=== PATIENT | female | born 1945 | race African-American/Black ===

== ENCOUNTER 2018-08-19 12:56 | Inpatient (IN) | payer OTHER ==
[~2018-08-19] VITALS: Ht 167.6 cm; Wt 109.1 kg
[2018-08-19 13:44] LABS: BILIRUBIN,URINE NEGATIVE (NEG); CLARITY,URINE CLEAR; COLOR,URINE YELLOW; NITRITE,URINE NEGATIVE (NEG); PROTEIN,URINE NEGATIVE (NEG-TRACE); UROBILINOGEN,URINE 0.2 mg/dL (0.2 mg/dL)
[2018-08-19 13:46] LABS: BASO % 1 % (0-3); EOS % 0 % (0-3); HEMATOCRIT 48.9 % (36.0-47.0); HEMOGLOBIN 15.9 g/dL (12.0-15.5); LYMPH # 0.6 x10^3/uL (1.0-4.8); LYMPH % 20 % (24-48); MEAN CORPUSCULAR HEMOGLOBIN 29 pg (25-35); MEAN CORPUSCULAR HGB CONC 33 g/dL (31-37); MEAN CORPUSCULAR VOLUME 89 fL (79-100); MONO # 0.1 x10^3/uL (0.0-1.1); MONO % 5 % (0-9); NEUT # 2.1 x10^3uL (1.8-7.7); NEUT % 74 % (31-73); PLATELET COUNT 156 x10^3/uL (140-400); RED BLOOD COUNT 5.52 x10^6/uL (3.50-5.40); RED CELL DISTRIBUTION WIDTH 13.8 % (11.5-14.5); WHITE BLOOD COUNT 2.9 x10^3/uL (4.0-11.0)
--- NOTE | 2018-08-19 13:48 | PHYS DOC ---
Past Medical History Past Medical History: Asthma, CVA, Diabetes-Type II, High Cholesterol, Hypertension Past Surgical History: Cholecystectomy, Hysterectomy, Knee Replacement, Other Additional Past Surgical Histo: Bilateral knee replacement,R)hip Alcohol Use: None Drug Use: None Adult General Chief Complaint Chief Complaint: NAUSEA/VOMITING/DIARRHA HPI HPI Patient is a 73 year old who presents with vomiting and diarrhea. She has been sick for 3 days. She also has pain all over her abd. She denies cp, sob, fevers. She has vomited 3x today. She denies blood in vomit or stool. She denies fevers. Review of Systems Review of Systems Constitutional: Denies fever or chills Eyes: Denies change in visual acuity, redness, or eye pain HENT: Denies nasal congestion or sore throat Respiratory: Denies cough or shortness of breath Cardiovascular: No additional information not addressed in HPI GI: Endorses abd pain, vom, diarrh : Denies dysuria or hematuria Musculoskeletal: Denies back pain or joint pain Integument: Denies rash or skin lesions Neurologic: Denies headache, focal weakness or sensory changes Endocrine: Denies polyuria or polydipsia All other systems were reviewed and found to be within normal limits, except as documented in this note. Current Medications Current Medications Current Medications Medications (Trade) Dose Ordered Sig/Maximiliano Start Time Stop Time Status Last Admin Dose Admin Ondansetron HCl (Zofran) 4 mg 1X ONCE 08/19/18 14:00 08/19/18 14:01 DC 08/19/18 13:58 4 MG Sodium Chloride 1,000 ml @ 1,000 mls/hr 1X ONCE 08/19/18 14:30 08/19/18 15:29 DC 08/19/18 14:42 1,000 MLS/HR Allergies Allergies Allergies Coded Allergies Type Severity Reaction Last Updated Verified Penicillins Allergy Intermediate 09/20/15 Yes iodine Allergy Intermediate 09/20/15 Yes Physical Exam Physical Exam Constitutional: Well developed, well nourished, no acute distress, non-toxic appearance. HENT: Normocephalic, atraumatic, bilateral external ears normal, oropharynx moist, no oral exudates, nose normal. Dry MM. Eyes: PERRLA, EOMI, conjunctiva normal, no discharge. Neck: Normal range of motion, no tenderness, supple, no stridor. Cardiovascular:Heart rate regular rhythm, no murmur Lungs & Thorax: Bilateral breath sounds clear to auscultation Abdomen: Bowel sounds normal, soft, no masses, no pulsatile masses. Diffuse abd TTP, no rebound, no guarding Skin: Warm, dry, no erythema, no rash. Back: No tenderness, no CVA tenderness. Extremities: No tenderness, no cyanosis, no clubbing, ROM intact, no edema. Neurologic: Alert and oriented X 3, normal motor function, normal sensory function, no focal deficits noted. Psychologic: Affect normal, judgement normal, mood normal. Current Patient Data Vital Signs Vital Signs Date Time Temp Pulse Resp B/P (MAP) Pulse Ox O2 Delivery O2 Flow Rate FiO2 08/19/18 14:30 67 19 189/91 (123) 96 Room Air 08/19/18 13:00 98.0 98.0 Lab Values Laboratory Tests Test 08/19/18 13:15 08/19/18 13:33 Urine Collection Type Unknown Urine Color Yellow Urine Clarity Clear Urine pH 7.0 Urine Specific [place] 1.015 Urine Protein Negative mg/dL (NEG-TRACE) Urine Glucose (UA) Negative mg/dL (NEG) Urine Ketones (Stick) Negative mg/dL (NEG) Urine Blood Negative (NEG) Urine Nitrite Negative (NEG) Urine Bilirubin Negative (NEG) Urine Urobilinogen Dipstick 0.2 mg/dL (0.2 mg/dL) Urine Leukocyte Esterase Negative (NEG) Urine RBC Rare /HPF (0-2) Urine WBC Rare /HPF (0-4) Urine Squamous Epithelial Cells Occ /LPF Urine Bacteria 0 /HPF (0-FEW) White Blood Count 2.9 x10^3/uL (4.0-11.0) L Red Blood Count 5.52 x10^6/uL (3.50-5.40) H Hemoglobin 15.9 g/dL (12.0-15.5) H Hematocrit 48.9 % (36.0-47.0) H Mean Corpuscular Volume 89 fL (79-100) Mean Corpuscular Hemoglobin 29 pg (25-35) Mean Corpuscular Hemoglobin Concent 33 g/dL (31-37) Red Cell Distribution Width 13.8 % (11.5-14.5) Platelet Count 156 x10^3/uL (140-400) Neutrophils (%) (Auto) 74 % (31-73) H Lymphocytes (%) (Auto) 20 % (24-48) L Monocytes (%) (Auto) 5 % (0-9) Eosinophils (%) (Auto) 0 % (0-3) Basophils (%) (Auto) 1 % (0-3) Neutrophils # (Auto) 2.1 x10^3uL (1.8-7.7) Lymphocytes # (Auto) 0.6 x10^3/uL (1.0-4.8) L Monocytes # (Auto) 0.1 x10^3/uL (0.0-1.1) Eosinophils # (Auto) 0.0 x10^3/uL (0.0-0.7) Basophils # (Auto) 0.0 x10^3/uL (0.0-0.2) Sodium Level 139 mmol/L (136-145) Potassium Level 4.0 mmol/L (3.5-5.1) Chloride Level 102 mmol/L (98-107) Carbon Dioxide Level 29 mmol/L (21-32) Anion Gap 8 (6-14) Blood Urea Nitrogen 12 mg/dL (7-20) Creatinine 1.2 mg/dL (0.6-1.0) H Estimated GFR (Cockcroft-Gault) 53.4 BUN/Creatinine Ratio 10 (6-20) Glucose Level 135 mg/dL (70-99) H Calcium Level 10.3 mg/dL (8.5-10.1) H Magnesium Level 1.9 mg/dL (1.8-2.4) Total Bilirubin 0.5 mg/dL (0.2-1.0) Aspartate Amino Transferase (AST) 21 U/L (15-37) Alanine Aminotransferase (ALT) 24 U/L (14-59) Alkaline Phosphatase 80 U/L (46-116) Total Protein 8.2 g/dL (6.4-8.2) Albumin 4.1 g/dL (3.4-5.0) Albumin/Globulin Ratio 1.0 (1.0-1.7) Lipase 62 U/L (73-393) L Laboratory Tests 08/19/18 13:33 Laboratory Tests 08/19/18 13:33 EKG EKG [] Radiology/Procedures Radiology/Procedures [] Course & Med Decision Making Course & Med Decision Making Pertinent Labs and Imaging studies reviewed. (See chart for details) 73 y/o F presents for vomiting and diarrhea, diffuse abd pain. CT neg for acute. Labs show elevated Cr. Admit for dehydration and HTN to Dr. Merritt. Richard Disclaimer Richard Disclaimer This electronic medical record was generated, in whole or in part, using a voice recognition dictation system. Departure Departure Impression: Primary Impression: Vomiting Additional Impressions: Diarrhea Elevated serum creatinine Hypertension Disposition: 09 ADMITTED INPATIENT Admitting Physician: Bell Merritt Condition: STABLE Referrals: KAYLA SNOWDEN (PCP) Problem Qualifiers SUSANNAH JEFF MD Aug 19, 2018 13:48
[2018-08-19 13:53] LABS: CALCIUM 10.3 mg/dL (8.5-10.1); CREATININE 1.2 mg/dL (0.6-1.0); GFR 53.4
[2018-08-19 13:55] LABS: BACTERIA,URINE 0 /HPF (0-FEW); RBC,URINE RARE /HPF (0-2); SQUAMOUS EPITHELIAL CELL,UR OCC /LPF; WBC,URINE RARE /HPF (0-4)
[2018-08-19 13:59] LABS: ALBUMIN 4.1 g/dL (3.4-5.0); MAGNESIUM 1.9 mg/dL (1.8-2.4); TOTAL BILIRUBIN 0.5 mg/dL (0.2-1.0); TOTAL PROTEIN 8.2 g/dL (6.4-8.2)
[2018-08-19] MEDS ORDERED: ONDANSETRON PF 4 MG/2 ML VIAL. IM ONE (14:00)
[2018-08-19] MEDS ORDERED: IV NORMAL SALINE 1000ML BAG 1,000 ML IV ONE (14:30)
--- NOTE | 2018-08-19 14:44 | RAD ---
CT study of the abdomen and pelvis without contrast Clinical indications: Diffuse abdominal pain. Iodine allergy. TECHNIQUE: Noncontrast helical CT scanning of the abdomen and pelvis was performed. Without contrast, the sensitivity to detect organ pathology and GI tract pathology is decreased. PQRS compliance Statement One or more of the following individualized dose reduction techniques were utilized for this study: 1. Automated exposure control 2. Adjustment of the mA and/or kV according to patient size 3. Use of iterative reconstruction technique COMPARISON: August 20, 2009. FINDINGS: The liver and spleen and pancreas are homogeneous in appearance on this noncontrast study. The gallbladder is surgically absent. No extra hepatic biliary ductal dilatation is seen. No hydronephrosis or hydroureter or urinary tract stone is evident. The urinary bladder is not distended. The uterus is surgically absent. No focal aneurysmal dilatation of the abdominal aorta is seen. No enlarged abdominal or pelvic lymphadenopathy is evident. The appendix is normal. No obstructive bowel pattern is evident. Small hiatal hernia is seen. No free intraperitoneal air or free fluid or mesenteric edema is seen. No lytic process is evident. There is a lipomatous mass of the right lateral flank measuring 11.3 cm transversely and 10.7 cm vertically and 6.5 cm in AP thickness. This has internal septations and nodularity and calcifications. This could represent a lipoma but given the heterogeneous appearance and septations and calcifications, a liposarcoma may be included in the differential diagnosis but this has not changed in size since 2009 i.e 9 years. Therefore, the other consideration is fat necrosis. No lung base consolidation is seen. IMPRESSION: No acute abnormality of the abdomen or pelvis. Small hiatal hernia. Large lipomatous mass of the right lateral flank which hasn't changed significantly since since April 2009. See discussion above. Electronically signed by: Eduardo Magana MD (08/19/2018 2:41 PM) [place] [id number]
[2018-08-19] MEDS ORDERED: MORPHINE SULFATE 2 MG/ML VIAL. IV PRN (15:45)
[2018-08-19] MEDS ORDERED: hydrALAZINE 20 MG/ML VIAL. IVP ONE (17:15)
[2018-08-19] MEDS: ONDANSETRON PF 4 MG/2 ML VIAL. IV PRN (17:25)
[2018-08-19] MEDS ORDERED: METOCLOPRAMIDE HCL 10 MG/2 ML VIAL. IV ONE (18:15)
[2018-08-19 18:47] VITALS: BP 196/103
[2018-08-19] MEDS ORDERED: LISINOPRIL 10 MG TABLET PO ONE (19:30)
[2018-08-19] MEDS ORDERED: amLODIPine BESYLATE 5 MG TABLET PO ONE (19:30)
--- NOTE | 2018-08-19 20:13 | PDOC1 ---
History and Physical Date of Admission Date of Admission DATE: 08/19/18 TIME: 20:08 Identification/Chief Complaint Chief Complaint n/v/d abdpain Source Source: Chart review, Patient History of Present Illness History of Present Illness Ms. Chaney is a 73 year old who presents with vomiting and diarrhea. 24 hours of loose stool, She complains of nausea and abdominal pain, worse over three days, she is unsure of what day it is, her son is here and helps with history, but he is unsure of her hoem meds, but did communicate things that her primary care had said about possible dementia . She also has pain all over her abd. She denies cp, sob, fevers. She has vomited 3x today. She denies blood in vomit or stool. She denies fevers. Past Medical History Cardiovascular: No pertinent hx Pulmonary: No pertinent hx GI: No pertinent hx Heme/Onc: No pertinent hx Psych: No pertinent hx Musculoskeletal: low back pain Social History Smoke: No ALCOHOL: none Drugs: None Current Problem List Problem List Problems Medical Problems: (1) Diarrhea Status: Acute (2) Elevated serum creatinine Status: Acute (3) Hypertension Status: Acute (4) Vomiting Status: Acute Current Medications Current Medications Current Medications Ondansetron HCl (Zofran) 4 mg 1X ONCE IM Last administered on 08/19/18at 13:58; Start 08/19/18 at 14:00; Stop 08/19/18 at 14:01; Status DC Sodium Chloride 1,000 ml @ 1,000 mls/hr 1X ONCE IV Last administered on 08/19/18at 14:42; Start 08/19/18 at 14:30; Stop 08/19/18 at 15:29; Status DC Ondansetron HCl (Zofran) 4 mg PRN Q8HRS PRN IV NAUSEA/VOMITING Last administered on 08/19/18at 17:25; Start 08/19/18 at 15:45; Stop 08/20/18 at 15:44 Morphine Sulfate (Morphine Sulfate) 2 mg PRN Q2HR PRN IV PAIN; Start 08/19/18 at 15:45; Stop 08/20/18 at 15:44 Hydralazine HCl (Apresoline Inj) 10 mg 1X ONCE IVP Last administered on 08/19/18at 17:25; Start 08/19/18 at 17:15; Stop 08/19/18 at 17:17; Status DC Metoclopramide HCl (Reglan Vial) 10 mg 1X ONCE IV Last administered on 08/19/18at 18:32; Start 08/19/18 at 18:15; Stop 08/19/18 at 18:16; Status DC Amlodipine Besylate (Norvasc) 5 mg 1X ONCE PO ; Start 08/19/18 at 19:30; Stop 08/19/18 at 19:31; Status DC Amlodipine Besylate (Norvasc) 5 mg DAILY PO ; Start 08/20/18 at 09:00 Lisinopril (Prinivil) 20 mg DAILY PO ; Start 08/20/18 at 09:00 Lisinopril (Prinivil) 20 mg 1X ONCE PO ; Start 08/19/18 at 19:30; Stop 08/19/18 at 19:31; Status DC Allergies Allergies: Coded Allergies: Penicillins (Verified Allergy, Intermediate, 09/20/15) iodine (Verified Allergy, Intermediate, 09/20/15) ROS Review of System unable due to dementia, her son reports abd pain and and nausea worse over three days, otherwise she has looked fine Physical Exam General: Cooperative, mild distress (abd pain), moderate distress, Other (not oriented) Lungs: Clear to auscultation Heart: S1S2 Abdomen: Soft (obese and tender, diffuse, no guarding, no rebound) Rectal Exam: not examined Extremities: No clubbing, No edema Skin: No rashes, No breakdown, No significant lesion Neuro: Normal speech, Normal tone, Cranial nerves 3-12 NL Psych/Mental Status: Mood NL Vitals Vitals Vital Signs Date Time Temp Pulse Resp B/P (MAP) Pulse Ox O2 Delivery O2 Flow Rate FiO2 08/19/18 18:47 97.8 72 16 196/103 (134) 100 Room Air 97.8 Labs Labs Laboratory Tests Test 08/19/18 13:15 08/19/18 13:33 Urine Collection Type Unknown Urine Color Yellow Urine Clarity Clear Urine pH 7.0 Urine Specific [place] 1.015 Urine Protein Negative mg/dL (NEG-TRACE) Urine Glucose (UA) Negative mg/dL (NEG) Urine Ketones (Stick) Negative mg/dL (NEG) Urine Blood Negative (NEG) Urine Nitrite Negative (NEG) Urine Bilirubin Negative (NEG) Urine Urobilinogen Dipstick 0.2 mg/dL (0.2 mg/dL) Urine Leukocyte Esterase Negative (NEG) Urine RBC Rare /HPF (0-2) Urine WBC Rare /HPF (0-4) Urine Squamous Epithelial Cells Occ /LPF Urine Bacteria 0 /HPF (0-FEW) White Blood Count 2.9 x10^3/uL (4.0-11.0) Red Blood Count 5.52 x10^6/uL (3.50-5.40) Hemoglobin 15.9 g/dL (12.0-15.5) Hematocrit 48.9 % (36.0-47.0) Mean Corpuscular Volume 89 fL (79-100) Mean Corpuscular Hemoglobin 29 pg (25-35) Mean Corpuscular Hemoglobin Concent 33 g/dL (31-37) Red Cell Distribution Width 13.8 % (11.5-14.5) Platelet Count 156 x10^3/uL (140-400) Neutrophils (%) (Auto) 74 % (31-73) Lymphocytes (%) (Auto) 20 % (24-48) Monocytes (%) (Auto) 5 % (0-9) Eosinophils (%) (Auto) 0 % (0-3) Basophils (%) (Auto) 1 % (0-3) Neutrophils # (Auto) 2.1 x10^3uL (1.8-7.7) Lymphocytes # (Auto) 0.6 x10^3/uL (1.0-4.8) Monocytes # (Auto) 0.1 x10^3/uL (0.0-1.1) Eosinophils # (Auto) 0.0 x10^3/uL (0.0-0.7) Basophils # (Auto) 0.0 x10^3/uL (0.0-0.2) Sodium Level 139 mmol/L (136-145) Potassium Level 4.0 mmol/L (3.5-5.1) Chloride Level 102 mmol/L (98-107) Carbon Dioxide Level 29 mmol/L (21-32) Anion Gap 8 (6-14) Blood Urea Nitrogen 12 mg/dL (7-20) Creatinine 1.2 mg/dL (0.6-1.0) Estimated GFR (Cockcroft-Gault) 53.4 BUN/Creatinine Ratio 10 (6-20) Glucose Level 135 mg/dL (70-99) Calcium Level 10.3 mg/dL (8.5-10.1) Magnesium Level 1.9 mg/dL (1.8-2.4) Total Bilirubin 0.5 mg/dL (0.2-1.0) Aspartate Amino Transf (AST/SGOT) 21 U/L (15-37) Alanine Aminotransferase (ALT/SGPT) 24 U/L (14-59) Alkaline Phosphatase 80 U/L (46-116) Total Protein 8.2 g/dL (6.4-8.2) Albumin 4.1 g/dL (3.4-5.0) Albumin/Globulin Ratio 1.0 (1.0-1.7) Lipase 62 U/L (73-393) Laboratory Tests Test 08/19/18 13:15 08/19/18 13:33 Urine Collection Type Unknown Urine Color Yellow Urine Clarity Clear Urine pH 7.0 Urine Specific [place] 1.015 Urine Protein Negative mg/dL (NEG-TRACE) Urine Glucose (UA) Negative mg/dL (NEG) Urine Ketones (Stick) Negative mg/dL (NEG) Urine Blood Negative (NEG) Urine Nitrite Negative (NEG) Urine Bilirubin Negative (NEG) Urine Urobilinogen Dipstick 0.2 mg/dL (0.2 mg/dL) Urine Leukocyte Esterase Negative (NEG) Urine RBC Rare /HPF (0-2) Urine WBC Rare /HPF (0-4) Urine Squamous Epithelial Cells Occ /LPF Urine Bacteria 0 /HPF (0-FEW) White Blood Count 2.9 x10^3/uL (4.0-11.0) Red Blood Count 5.52 x10^6/uL (3.50-5.40) Hemoglobin 15.9 g/dL (12.0-15.5) Hematocrit 48.9 % (36.0-47.0) Mean Corpuscular Volume 89 fL (79-100) Mean Corpuscular Hemoglobin 29 pg (25-35) Mean Corpuscular Hemoglobin Concent 33 g/dL (31-37) Red Cell Distribution Width 13.8 % (11.5-14.5) Platelet Count 156 x10^3/uL (140-400) Neutrophils (%) (Auto) 74 % (31-73) Lymphocytes (%) (Auto) 20 % (24-48) Monocytes (%) (Auto) 5 % (0-9) Eosinophils (%) (Auto) 0 % (0-3) Basophils (%) (Auto) 1 % (0-3) Neutrophils # (Auto) 2.1 x10^3uL (1.8-7.7) Lymphocytes # (Auto) 0.6 x10^3/uL (1.0-4.8) Monocytes # (Auto) 0.1 x10^3/uL (0.0-1.1) Eosinophils # (Auto) 0.0 x10^3/uL (0.0-0.7) Basophils # (Auto) 0.0 x10^3/uL (0.0-0.2) Sodium Level 139 mmol/L (136-145) Potassium Level 4.0 mmol/L (3.5-5.1) Chloride Level 102 mmol/L (98-107) Carbon Dioxide Level 29 mmol/L (21-32) Anion Gap 8 (6-14) Blood Urea Nitrogen 12 mg/dL (7-20) Creatinine 1.2 mg/dL (0.6-1.0) Estimated GFR (Cockcroft-Gault) 53.4 BUN/Creatinine Ratio 10 (6-20) Glucose Level 135 mg/dL (70-99) Calcium Level 10.3 mg/dL (8.5-10.1) Magnesium Level 1.9 mg/dL (1.8-2.4) Total Bilirubin 0.5 mg/dL (0.2-1.0) Aspartate Amino Transf (AST/SGOT) 21 U/L (15-37) Alanine Aminotransferase (ALT/SGPT) 24 U/L (14-59) Alkaline Phosphatase 80 U/L (46-116) Total Protein 8.2 g/dL (6.4-8.2) Albumin 4.1 g/dL (3.4-5.0) Albumin/Globulin Ratio 1.0 (1.0-1.7) Lipase 62 U/L (73-393) VTE Prophylaxis Ordered VTE Prophylaxis Devices: No VTE Pharmacological Prophylaxi: Yes Assessment/Plan Assessment/Plan nausea and vomiting and diarrhea, acute viral enteritis accelerated htn, will start mult, agents - check echo, renal noted cognitive decline or early dementia by pt primary care per her son obesity, BMI 42 VELEZ,SHAQUILLE W MD Aug 19, 2018 20:13
--- NOTE | 2018-08-19 20:30 | NUR ---
Patient unable to give history or medication list, sons Kev and Hugo in room, did speak with Kev's , Landy Chaney, and she had said her or someone would go to patient's home and call back with her medications. Awaiting.
[2018-08-19] MEDS ORDERED: cloNIDine TTS-1 1 PATCH PATCH.TDWK TD SCH (21:00)
[2018-08-19] MEDS: ENOXAPARIN 40 MG/0.4 ML SYRINGE. SQ SCH (21:31)
[2018-08-19 23:00] VITALS: BP 199/98
[2018-08-20] VITALS (9 sets, daily range): BP systolic 148–201; BP diastolic 73–104
--- NOTE | 2018-08-20 02:00 | NUR ---
Patient seems a bit more awake than beginning of shift, did squeeze this story writer's hands equally, flexed feet equally. nauseated. monitoring.
[2018-08-20] MEDS ORDERED: METF500T16 PO (06:57)
[2018-08-20] MEDS ORDERED: ASPI81TA50 PO (06:57)
[2018-08-20] MEDS ORDERED: LISI-334 PO (06:57)
[2018-08-20] MEDS ORDERED: HYDR12.58 PO (06:57)
[2018-08-20] MEDS ORDERED: POLY17PO29 PO (06:57)
[2018-08-20] MEDS ORDERED: DOCU100C28 PO (06:57)
[2018-08-20] MEDS ORDERED: BUPR150T8 PO (06:57)
[2018-08-20] MEDS ORDERED: METO50TA6 PO (06:57)
[2018-08-20] MEDS ORDERED: calcium (06:57)
[2018-08-20] MEDS ORDERED: OXYC1TAB22 PO (06:57)
[2018-08-20] MEDS ORDERED: ATOR40TA59 PO (06:57)
[2018-08-20] MEDS ORDERED: SPIR25TA5 PO (06:57)
[2018-08-20] MEDS ORDERED: CHOL10003 PO (06:57)
[2018-08-20] MEDS ORDERED: WARF-31 PO (06:57)
[2018-08-20] MEDS ORDERED: CLON0.3T PO (06:57)
[2018-08-20] MEDS ORDERED: ALBU2.5V8 IH (06:57)
[2018-08-20 08:25] LABS: BASO % 0 % (0-3); EOS % 0 % (0-3); HEMATOCRIT 46.6 % (36.0-47.0); HEMOGLOBIN 15.6 g/dL (12.0-15.5); LYMPH # 0.5 x10^3/uL (1.0-4.8); LYMPH % 10 % (24-48); MEAN CORPUSCULAR HEMOGLOBIN 30 pg (25-35); MEAN CORPUSCULAR HGB CONC 33 g/dL (31-37); MEAN CORPUSCULAR VOLUME 88 fL (79-100); MONO # 0.2 x10^3/uL (0.0-1.1); MONO % 4 % (0-9); NEUT # 4.3 x10^3uL (1.8-7.7); NEUT % 86 % (31-73); PLATELET COUNT 157 x10^3/uL (140-400); RED BLOOD COUNT 5.28 x10^6/uL (3.50-5.40); RED CELL DISTRIBUTION WIDTH 13.6 % (11.5-14.5)
--- NOTE | 2018-08-20 08:42 | PDOC2 ---
GI CONSULT Reason For Consult: Enteritis HPI: HPI: 73 y/o female - most of history from chart. When I saw her, she was sitting on the edge of her bed w/ gown covered in bilious emesis. She answered all my questions with "for awhile." Chart indicates ill w/ vomiting and diarrhea x 3 days w/ possible h/o dementia. PMH: PMH: from chart - dementia, DM, asthma, PE, HTN, HLD, CVA, pneumonia, colon polyps cataract removal, cholecystectomy, bilateral knee surgeries FH: Family History: Other (unable to obtain) ROS: Please see HPI. Vitals: Vitals: Vital Signs Date Time Temp Pulse Resp B/P (MAP) Pulse Ox O2 Delivery O2 Flow Rate FiO2 08/20/18 07:00 98.5 92 22 200/104 (136) 94 Room Air 98.5 Labs: Labs: Laboratory Tests Test 08/19/18 13:15 08/19/18 13:33 08/20/18 07:42 Urine Collection Type Unknown Urine Color Yellow Urine Clarity Clear Urine pH 7.0 Urine Specific [place] 1.015 Urine Protein Negative mg/dL (NEG-TRACE) Urine Glucose (UA) Negative mg/dL (NEG) Urine Ketones (Stick) Negative mg/dL (NEG) Urine Blood Negative (NEG) Urine Nitrite Negative (NEG) Urine Bilirubin Negative (NEG) Urine Urobilinogen Dipstick 0.2 mg/dL (0.2 mg/dL) Urine Leukocyte Esterase Negative (NEG) Urine RBC Rare /HPF (0-2) Urine WBC Rare /HPF (0-4) Urine Squamous Epithelial Cells Occ /LPF Urine Bacteria 0 /HPF (0-FEW) White Blood Count 2.9 x10^3/uL (4.0-11.0) 5.0 x10^3/uL (4.0-11.0) Red Blood Count 5.52 x10^6/uL (3.50-5.40) 5.28 x10^6/uL (3.50-5.40) Hemoglobin 15.9 g/dL (12.0-15.5) 15.6 g/dL (12.0-15.5) Hematocrit 48.9 % (36.0-47.0) 46.6 % (36.0-47.0) Mean Corpuscular Volume 89 fL (79-100) 88 fL (79-100) Mean Corpuscular Hemoglobin 29 pg (25-35) 30 pg (25-35) Mean Corpuscular Hemoglobin Concent 33 g/dL (31-37) 33 g/dL (31-37) Red Cell Distribution Width 13.8 % (11.5-14.5) 13.6 % (11.5-14.5) Platelet Count 156 x10^3/uL (140-400) 157 x10^3/uL (140-400) Neutrophils (%) (Auto) 74 % (31-73) 86 % (31-73) Lymphocytes (%) (Auto) 20 % (24-48) 10 % (24-48) Monocytes (%) (Auto) 5 % (0-9) 4 % (0-9) Eosinophils (%) (Auto) 0 % (0-3) 0 % (0-3) Basophils (%) (Auto) 1 % (0-3) 0 % (0-3) Neutrophils # (Auto) 2.1 x10^3uL (1.8-7.7) 4.3 x10^3uL (1.8-7.7) Lymphocytes # (Auto) 0.6 x10^3/uL (1.0-4.8) 0.5 x10^3/uL (1.0-4.8) Monocytes # (Auto) 0.1 x10^3/uL (0.0-1.1) 0.2 x10^3/uL (0.0-1.1) Eosinophils # (Auto) 0.0 x10^3/uL (0.0-0.7) 0.0 x10^3/uL (0.0-0.7) Basophils # (Auto) 0.0 x10^3/uL (0.0-0.2) 0.0 x10^3/uL (0.0-0.2) Sodium Level 139 mmol/L (136-145) Potassium Level 4.0 mmol/L (3.5-5.1) Chloride Level 102 mmol/L (98-107) Carbon Dioxide Level 29 mmol/L (21-32) Anion Gap 8 (6-14) Blood Urea Nitrogen 12 mg/dL (7-20) Creatinine 1.2 mg/dL (0.6-1.0) Estimated GFR (Cockcroft-Gault) 53.4 BUN/Creatinine Ratio 10 (6-20) Glucose Level 135 mg/dL (70-99) Calcium Level 10.3 mg/dL (8.5-10.1) Magnesium Level 1.9 mg/dL (1.8-2.4) Total Bilirubin 0.5 mg/dL (0.2-1.0) Aspartate Amino Transf (AST/SGOT) 21 U/L (15-37) Alanine Aminotransferase (ALT/SGPT) 24 U/L (14-59) Alkaline Phosphatase 80 U/L (46-116) Total Protein 8.2 g/dL (6.4-8.2) Albumin 4.1 g/dL (3.4-5.0) Albumin/Globulin Ratio 1.0 (1.0-1.7) Lipase 62 U/L (73-393) Ionized Calcium 1.29 mmol/L (1.13-1.32) Allergies: Coded Allergies: Penicillins (Verified Allergy, Intermediate, 09/20/15) iodine (Verified Allergy, Intermediate, 09/20/15) Medications: Current Medications Medications (Trade) Dose Ordered Sig/Maximiliano Route PRN Reason Start Time Stop Time Status Last Admin Dose Admin Ondansetron HCl (Zofran) 4 mg 1X ONCE IM 08/19/18 14:00 08/19/18 14:01 DC 08/19/18 13:58 Sodium Chloride 1,000 ml @ 1,000 mls/hr 1X ONCE IV 08/19/18 14:30 08/19/18 15:29 DC 08/19/18 14:42 Ondansetron HCl (Zofran) 4 mg PRN Q8HRS PRN IV NAUSEA/VOMITING 08/19/18 15:45 08/20/18 15:44 08/19/18 17:25 Hydralazine HCl (Apresoline Inj) 10 mg 1X ONCE IVP 08/19/18 17:15 08/19/18 17:17 DC 08/19/18 17:25 Metoclopramide HCl (Reglan Vial) 10 mg 1X ONCE IV 08/19/18 18:15 08/19/18 18:16 DC 08/19/18 18:32 Enoxaparin Sodium (Lovenox 40mg Syringe) 40 mg Q12H SQ 08/19/18 21:00 08/19/18 21:31 Clonidine HCl (Catapres Tts-1) 1 patch WEEKLY TD 08/19/18 21:00 08/19/18 21:30 Imaging: Imaging: CT A/P w/o contrast FINDINGS: The liver and spleen and pancreas are homogeneous in appearance on this noncontrast study. The gallbladder is surgically absent. No extra hepatic biliary ductal dilatation is seen. No hydronephrosis or hydroureter or urinary tract stone is evident. The urinary bladder is not distended. The uterus is surgically absent. No focal aneurysmal dilatation of the abdominal aorta is seen. No enlarged abdominal or pelvic lymphadenopathy is evident. The appendix is normal. No obstructive bowel pattern is evident. Small hiatal hernia is seen. No free intraperitoneal air or free fluid or mesenteric edema is seen. No lytic process is evident. There is a lipomatous mass of the right lateral flank measuring 11.3 cm transversely and 10.7 cm vertically and 6.5 cm in AP thickness. This has internal septations and nodularity and calcifications. This could represent a lipoma but given the heterogeneous appearance and septations and calcifications, a liposarcoma may be included in the differential diagnosis but this has not changed in size since 2009 i.e 9 years. Therefore, the other consideration is fat necrosis. No lung base consolidation is seen. IMPRESSION: No acute abnormality of the abdomen or pelvis. Small hiatal hernia. Large lipomatous mass of the right lateral flank which hasn't changed significantly since since April 2009. See discussion above. Renal US Impression: No hydronephrosis. Unremarkable exam. PE: Exam not ideal - she did not want to change positions. GEN: ill - softly moaning, sitting on edge of bed, gown w/ emesis, holding emesis basin HEENT: Atraumatic LUNGS: CTAB - poor effort HEART: borderline tachycardic ABD: BS quiet, no obvious tenderness on limited exam EXTREMITY: No edema SKIN: No rashes, no jaundice NEURO/PSYCH: confused A/P: A/P: Vomiting, ?diarrhea, ?abd pain HTN, hypercalcemia, large lipomatous mass of right lateral flank - per primary ?h/o colon polyps S/p cholecystectomy -- No meaningful information from pt this morning, though obviously ill w/ emesis on her gown, exam not ideal (pt not wanting to move from seated/hunched over pos ition) - d/w staff. Supportive care, NPO, will add IV PPI. CT w/o contrast unrevealing. Will review w/ Dr. Yeung. PEDRO JONES Aug 20, 2018 08:42
[2018-08-20 08:53] LABS: ALBUMIN 3.7 g/dL (3.4-5.0); ALBUMIN/GLOBULIN RATIO 0.9 (1.0-1.7); CALCIUM 10.4 mg/dL (8.5-10.1); CREATININE 1.1 mg/dL (0.6-1.0); GFR 59.1; POTASSIUM 3.9 mmol/L (3.5-5.1); TOTAL BILIRUBIN 0.5 mg/dL (0.2-1.0); TOTAL PROTEIN 7.6 g/dL (6.4-8.2)
[2018-08-20] MEDS: ENOXAPARIN 40 MG/0.4 ML SYRINGE. SQ SCH (09:00)
[2018-08-20] MEDS ORDERED: LISINOPRIL 20 MG TABLET PO SCH (09:00)
--- NOTE | 2018-08-20 09:06 | RAD ---
Examination: RENAL COMPLETE BILATERAL History: MARKED HTN, NAUSEA VOMITING,
I LOOKED AT DR NOTES HE ASKED FOR RENAL, Comparison/Correlation: 08/19/2018 CT of the abdomen and pelvis without contrast Findings: Right kidney measures 10.3 cm x 5 cm x 4.67. Left kidney measures 9.8 cm x 4.5 cm x 2.5 cm. No hydronephrosis or nephrolithiasis. Renal contours and echotexture are unremarkable. Urinary bladder is completely decompressed. Impression: No hydronephrosis. Unremarkable exam. Electronically signed by: Kishan Ramon MD (08/20/2018 9:04 AM) [facility]
[2018-08-20] MEDS: amLODIPine BESYLATE 5 MG TABLET PO SCH (09:09)
[2018-08-20 09:24] LABS: % LYMPHS 10 % (24-48); % MONOS 5 % (0-10); % SEGS 85 % (35-66)
[2018-08-20 09:25] LABS: PLT ESTIMATE ADEQUATE (ADEQUATE)
[2018-08-20] MEDS: PANTOPRAZOLE IV PUSH 40 MG VIAL. IVP SCH ×2 (09:40→18:50)
--- NOTE | 2018-08-20 10:00 | NUR ---
Patient drowsy, but does respond to verbal commands, spoke on phone x2 when phone handed to her. Patient admitted to having stroke in past, and indicate did have some weakness from that, but doesn't remember where, and doesn't remember how long ago she had a stroke. Bilateral hand blender / cook mod strength, answered "right handed" Patient had c/o head discomfort when slid down in bed, with some immediate relief when pulled up in bed. Pupils difficult to check at this time for size, as very dark (right pupil does appear very small, but unable to assess size prior to exposure to light.
[2018-08-20] MEDS ORDERED: LABETALOL 20 MG/4 ML DISP.SYRIN. IVP PRN (10:15)
[2018-08-20] MEDS ORDERED: oxyCODONE/APAP 10/325 1 TAB TABLET PO PRN (10:45)
[2018-08-20] MEDS ORDERED: hydroCHLOROthiazide 25 MG TABLET PO SCH (11:00)
[2018-08-20] MEDS: POLYETHYLENE GLYCOL 3350 17 GM PACKET. PO SCH (11:00)
[2018-08-20] MEDS ORDERED: CHOLECALCIFEROL (VITAMIN D3) 1,000 UNIT TABLET PO SCH (11:00)
[2018-08-20 11:21] LABS: PROTHROMBIN TIME PATIENT 30.2 SEC (11.7-14.0)
[2018-08-20] MEDS ORDERED: SPIRONOLACTONE 25 MG TABLET PO SCH (12:00)
--- NOTE | 2018-08-20 12:52 | PDOC2 ---
CONSULT Date of Consult Date of Consult DATE: 08/20/18 TIME: 12:44 Reason for Consult Reason for Consult: HIGH CA AND CORINNE Referring Physician Referring Physician: AGUSTIN Identification/Chief Complaint Chief Complaint N/V AND DIARRHEA Source Source: Chart review History of Present Illness Reason for Visit: THIS IS A 73 YR OLD WITH N/V/D FOR ABOUT 1-2 DAYS. NOTED TO HAVE WEAKNESS AND LABS ABNORMALITIES INCLUDING HIGH CA AND CORINNE. CR OF 1.3. HX OF DM II AND HTN. BP HIGH NOW SHE HAS NOT BEEN ABLE TO KEEP HER MEDS DOWN. SHE IS CONFUSED AND APPARENTLY THIS IS NOT ACUTE IN THAT SHE HAS DX OF DEMENTIA. UA IS NEG. MED LISTS INCLUDED VIT D AND A THIAZIDE DIURETIC. NO NEPHROTOXINS NOTED Past Medical History Cardiovascular: No pertinent hx Pulmonary: No pertinent hx GI: No pertinent hx Heme/Onc: No pertinent hx Psych: No pertinent hx Musculoskeletal: low back pain Family History Family History: Hypertension Current Problem List Problem List Problems Medical Problems: (1) Diarrhea Status: Acute (2) Elevated serum creatinine Status: Acute (3) Hypertension Status: Acute (4) Vomiting Status: Acute Current Medications Current Medications Current Medications Ondansetron HCl (Zofran) 4 mg 1X ONCE IM Last administered on 08/19/18at 13:58; Start 08/19/18 at 14:00; Stop 08/19/18 at 14:01; Status DC Sodium Chloride 1,000 ml @ 1,000 mls/hr 1X ONCE IV Last administered on 08/19/18at 14:42; Start 08/19/18 at 14:30; Stop 08/19/18 at 15:29; Status DC Ondansetron HCl (Zofran) 4 mg PRN Q8HRS PRN IV NAUSEA/VOMITING Last administered on 08/19/18at 17:25; Start 08/19/18 at 15:45; Stop 08/20/18 at 15:44 Morphine Sulfate (Morphine Sulfate) 2 mg PRN Q2HR PRN IV PAIN; Start 08/19/18 at 15:45; Stop 08/20/18 at 15:44 Hydralazine HCl (Apresoline Inj) 10 mg 1X ONCE IVP Last administered on 08/19/18at 17:25; Start 08/19/18 at 17:15; Stop 08/19/18 at 17:17; Status DC Metoclopramide HCl (Reglan Vial) 10 mg 1X ONCE IV Last administered on 08/19/18at 18:32; Start 08/19/18 at 18:15; Stop 08/19/18 at 18:16; Status DC Amlodipine Besylate (Norvasc) 5 mg 1X ONCE PO ; Start 08/19/18 at 19:30; Stop 08/19/18 at 19:31; Status DC Amlodipine Besylate (Norvasc) 5 mg DAILY PO Last administered on 08/20/18at 09:09; Start 08/20/18 at 09:00 Lisinopril (Prinivil) 20 mg DAILY PO Last administered on 08/20/18at 09:09; Start 08/20/18 at 09:00; Stop 08/20/18 at 10:45; Status DC Lisinopril (Prinivil) 20 mg 1X ONCE PO ; Start 08/19/18 at 19:30; Stop 08/19/18 at 19:31; Status DC Enoxaparin Sodium (Lovenox Per Pharmacy Prophylaxis Dosing) 1 each PRN DAILY PRN MC SEE COMMENTS; Start 08/19/18 at 20:15; Stop 08/20/18 at 11:44; Status DC Enoxaparin Sodium (Lovenox 40mg Syringe) 40 mg Q12H SQ Last administered on 08/19/18at 21:31; Start 08/19/18 at 21:00; Stop 08/20/18 at 11:44; Status DC Clonidine HCl (Catapres Tts-1) 1 patch WEEKLY TD Last administered on 08/19/18at 21:30; Start 08/19/18 at 21:00; Stop 08/20/18 at 11:33; Status DC Pantoprazole Sodium (PROTONIX VIAL for IV PUSH) 40 mg BIDAC IVP Last administered on 08/20/18at 09:40; Start 08/20/18 at 09:00 Carvedilol (Coreg) 12.5 mg BIDWMEALS PO ; Start 08/20/18 at 10:30 Labetalol HCl (Normodyne Iv Push) 20 mg PRN Q2HR PRN IVP HYPERTENSION, SEE COMMENTS; Start 08/20/18 at 10:15 Aspirin (Ecotrin) 81 mg DAILY PO ; Start 08/20/18 at 11:00 Atorvastatin Calcium (Lipitor) 40 mg HS PO ; Start 08/20/18 at 21:00 Bupropion HCl (Wellbutrin Sr) 150 mg BID PO ; Start 08/20/18 at 21:00 Vitamin D (Vitamin D3) 1,000 unit DAILY PO ; Start 08/20/18 at 11:00 Clonidine HCl (Catapres) 0.3 mg QHS PO ; Start 08/20/18 at 21:00 Docusate Sodium (Colace) 100 mg BID PO ; Start 08/20/18 at 11:00 Lisinopril (Prinivil) 20 mg BID PO ; Start 08/20/18 at 21:00 Oxycodone/ Acetaminophen (Percocet 10/325) 1 tab PRN Q6HRS PRN PO PAIN; Start 08/20/18 at 10:45 Hydrochlorothiazide (Hydrodiuril) 25 mg DAILY PO ; Start 08/20/18 at 11:00 Polyethylene Glycol (miraLAX PACKET) 17 gm DAILY PO ; Start 08/20/18 at 11:00 Spironolactone (Aldactone) 25 mg DAILY PO ; Start 08/20/18 at 12:00 Warfarin Sodium (Coumadin) 5 mg 1X WARF ONCE PO ; Start 08/20/18 at 16:00; Stop 08/20/18 at 16:01 Potassium Chloride/Dextrose/ Sod Cl 1,000 ml @ 75 mls/hr [id number] IV ; Start 08/20/18 at 11:00 Warfarin Sodium (Coumadin Per Pharmacy) 1 each PRN DAILY PRN [facility] SEE COMMENTS; Start 08/20/18 at 12:00 Active Scripts Active Reported Spironolactone 25 Mg Tablet 1 Tab PO BID PRN Warfarin Sodium 5 Mg Tablet 5 Mg PO DAILY Miralax (Polyethylene Glycol 3350) 17 Gm Powd.pack 1 Packet PO DAILY Percocet 10-325 Mg Tablet (Oxycodone/Acetaminophen) 1 Each Tablet 1 Tab PO PRN Q6HRS PRN Metoprolol Tartrate 50 Mg Tablet 1 Tab PO BID Metformin Hcl 500 Mg Tablet 500 Mg PO BIDWMEALS Lisinopril 20 Mg Tablet 1 Tab PO BID Hydrochlorothiazide Tablet (Hydrochlorothiazide) 12.5 Mg Tablet 25 Mg PO DAILY Docusate Sodium 100 Mg Capsule 1 Cap PO BID Clonidine Hcl 0.3 Mg Tablet 1 Tab PO QHS Vitamin D3 (Cholecalciferol (Vitamin D3)) 1,000 Unit Tablet 1 Tab PO DAILY [calcium] Wellbutrin Sr (Bupropion Hcl) 150 Mg Tablet.er 1 Tab PO BID Atorvastatin Calcium 40 Mg Tablet 40 Mg PO HS Aspir-Low (Aspirin) 81 Mg Tablet.dr 1 Tab PO DAILY Proventil Hfa Inhaler (Albuterol Sulfate) 6.7 Gm Hfa.aer.ad 2 Puff IH PRN Q4HRS PRN Allergies Allergies: Coded Allergies: Penicillins (Verified Allergy, Intermediate, 09/20/15) iodine (Verified Allergy, Intermediate, 09/20/15) ROS Review of System UNABLE TO OBTAIN Physical Exam General: Alert, Cooperative, No acute distress HEENT: Atraumatic, PERRLA, Other (DRY MUCOSA) Lungs: Clear to auscultation Heart: Regular rate Abdomen: Normal bowel sounds, Soft, No tenderness Extremities: No clubbing Skin: No breakdown Neuro: Reflexes 2+ (CONFUSED) Psych/Mental Status: Other (CONFUSED) MUSCULOSKELETAL: No deformity, Other (MUSCLE ATROPHY) Vitals VITALS Vital Signs Date Time Temp Pulse Resp B/P (MAP) Pulse Ox O2 Delivery O2 Flow Rate FiO2 08/20/18 11:00 98.8 89 165/73 (103) 95 Room Air 98.8 08/20/18 09:33 18 Labs Labs Laboratory Tests Test 08/19/18 13:15 08/19/18 13:33 08/20/18 07:42 Urine Collection Type Unknown Urine Color Yellow Urine Clarity Clear Urine pH 7.0 Urine Specific [place] 1.015 Urine Protein Negative mg/dL (NEG-TRACE) Urine Glucose (UA) Negative mg/dL (NEG) Urine Ketones (Stick) Negative mg/dL (NEG) Urine Blood Negative (NEG) Urine Nitrite Negative (NEG) Urine Bilirubin Negative (NEG) Urine Urobilinogen Dipstick 0.2 mg/dL (0.2 mg/dL) Urine Leukocyte Esterase Negative (NEG) Urine RBC Rare /HPF (0-2) Urine WBC Rare /HPF (0-4) Urine Squamous Epithelial Cells Occ /LPF Urine Bacteria 0 /HPF (0-FEW) White Blood Count 2.9 x10^3/uL (4.0-11.0) 5.0 x10^3/uL (4.0-11.0) Red Blood Count 5.52 x10^6/uL (3.50-5.40) 5.28 x10^6/uL (3.50-5.40) Hemoglobin 15.9 g/dL (12.0-15.5) 15.6 g/dL (12.0-15.5) Hematocrit 48.9 % (36.0-47.0) 46.6 % (36.0-47.0) Mean Corpuscular Volume 89 fL (79-100) 88 fL (79-100) Mean Corpuscular Hemoglobin 29 pg (25-35) 30 pg (25-35) Mean Corpuscular Hemoglobin Concent 33 g/dL (31-37) 33 g/dL (31-37) Red Cell Distribution Width 13.8 % (11.5-14.5) 13.6 % (11.5-14.5) Platelet Count 156 x10^3/uL (140-400) 157 x10^3/uL (140-400) Neutrophils (%) (Auto) 74 % (31-73) 86 % (31-73) Lymphocytes (%) (Auto) 20 % (24-48) 10 % (24-48) Monocytes (%) (Auto) 5 % (0-9) 4 % (0-9) Eosinophils (%) (Auto) 0 % (0-3) 0 % (0-3) Basophils (%) (Auto) 1 % (0-3) 0 % (0-3) Neutrophils # (Auto) 2.1 x10^3uL (1.8-7.7) 4.3 x10^3uL (1.8-7.7) Lymphocytes # (Auto) 0.6 x10^3/uL (1.0-4.8) 0.5 x10^3/uL (1.0-4.8) Monocytes # (Auto) 0.1 x10^3/uL (0.0-1.1) 0.2 x10^3/uL (0.0-1.1) Eosinophils # (Auto) 0.0 x10^3/uL (0.0-0.7) 0.0 x10^3/uL (0.0-0.7) Basophils # (Auto) 0.0 x10^3/uL (0.0-0.2) 0.0 x10^3/uL (0.0-0.2) Sodium Level 139 mmol/L (136-145) 139 mmol/L (136-145) Potassium Level 4.0 mmol/L (3.5-5.1) 3.9 mmol/L (3.5-5.1) Chloride Level 102 mmol/L (98-107) 103 mmol/L (98-107) Carbon Dioxide Level 29 mmol/L (21-32) 27 mmol/L (21-32) Anion Gap 8 (6-14) 9 (6-14) Blood Urea Nitrogen 12 mg/dL (7-20) 13 mg/dL (7-20) Creatinine 1.2 mg/dL (0.6-1.0) 1.1 mg/dL (0.6-1.0) Estimated GFR (Cockcroft-Gault) 53.4 59.1 BUN/Creatinine Ratio 10 (6-20) 12 (6-20) Glucose Level 135 mg/dL (70-99) 143 mg/dL (70-99) Calcium Level 10.3 mg/dL (8.5-10.1) 10.4 mg/dL (8.5-10.1) Magnesium Level 1.9 mg/dL (1.8-2.4) Total Bilirubin 0.5 mg/dL (0.2-1.0) 0.5 mg/dL (0.2-1.0) Aspartate Amino Transf (AST/SGOT) 21 U/L (15-37) 18 U/L (15-37) Alanine Aminotransferase (ALT/SGPT) 24 U/L (14-59) 21 U/L (14-59) Alkaline Phosphatase 80 U/L (46-116) 74 U/L (46-116) Total Protein 8.2 g/dL (6.4-8.2) 7.6 g/dL (6.4-8.2) Albumin 4.1 g/dL (3.4-5.0) 3.7 g/dL (3.4-5.0) Albumin/Globulin Ratio 1.0 (1.0-1.7) 0.9 (1.0-1.7) Lipase 62 U/L (73-393) Segmented Neutrophils % 85 % (35-66) Lymphocytes % 10 % (24-48) Monocytes % 5 % (0-10) Platelet Estimate Adequate (ADEQUATE) Prothrombin Time 30.2 SEC (11.7-14.0) Prothromb Time International Ratio 2.9 (0.8-1.1) Ionized Calcium 1.29 mmol/L (1.13-1.32) Laboratory Tests Test 08/19/18 13:15 08/19/18 13:33 08/20/18 07:42 Urine Collection Type Unknown Urine Color Yellow Urine Clarity Clear Urine pH 7.0 Urine Specific [place] 1.015 Urine Protein Negative mg/dL (NEG-TRACE) Urine Glucose (UA) Negative mg/dL (NEG) Urine Ketones (Stick) Negative mg/dL (NEG) Urine Blood Negative (NEG) Urine Nitrite Negative (NEG) Urine Bilirubin Negative (NEG) Urine Urobilinogen Dipstick 0.2 mg/dL (0.2 mg/dL) Urine Leukocyte Esterase Negative (NEG) Urine RBC Rare /HPF (0-2) Urine WBC Rare /HPF (0-4) Urine Squamous Epithelial Cells Occ /LPF Urine Bacteria 0 /HPF (0-FEW) White Blood Count 2.9 x10^3/uL (4.0-11.0) 5.0 x10^3/uL (4.0-11.0) Red Blood Count 5.52 x10^6/uL (3.50-5.40) 5.28 x10^6/uL (3.50-5.40) Hemoglobin 15.9 g/dL (12.0-15.5) 15.6 g/dL (12.0-15.5) Hematocrit 48.9 % (36.0-47.0) 46.6 % (36.0-47.0) Mean Corpuscular Volume 89 fL (79-100) 88 fL (79-100) Mean Corpuscular Hemoglobin 29 pg (25-35) 30 pg (25-35) Mean Corpuscular Hemoglobin Concent 33 g/dL (31-37) 33 g/dL (31-37) Red Cell Distribution Width 13.8 % (11.5-14.5) 13.6 % (11.5-14.5) Platelet Count 156 x10^3/uL (140-400) 157 x10^3/uL (140-400) Neutrophils (%) (Auto) 74 % (31-73) 86 % (31-73) Lymphocytes (%) (Auto) 20 % (24-48) 10 % (24-48) Monocytes (%) (Auto) 5 % (0-9) 4 % (0-9) Eosinophils (%) (Auto) 0 % (0-3) 0 % (0-3) Basophils (%) (Auto) 1 % (0-3) 0 % (0-3) Neutrophils # (Auto) 2.1 x10^3uL (1.8-7.7) 4.3 x10^3uL (1.8-7.7) Lymphocytes # (Auto) 0.6 x10^3/uL (1.0-4.8) 0.5 x10^3/uL (1.0-4.8) Monocytes # (Auto) 0.1 x10^3/uL (0.0-1.1) 0.2 x10^3/uL (0.0-1.1) Eosinophils # (Auto) 0.0 x10^3/uL (0.0-0.7) 0.0 x10^3/uL (0.0-0.7) Basophils # (Auto) 0.0 x10^3/uL (0.0-0.2) 0.0 x10^3/uL (0.0-0.2) Sodium Level 139 mmol/L (136-145) 139 mmol/L (136-145) Potassium Level 4.0 mmol/L (3.5-5.1) 3.9 mmol/L (3.5-5.1) Chloride Level 102 mmol/L (98-107) 103 mmol/L (98-107) Carbon Dioxide Level 29 mmol/L (21-32) 27 mmol/L (21-32) Anion Gap 8 (6-14) 9 (6-14) Blood Urea Nitrogen 12 mg/dL (7-20) 13 mg/dL (7-20) Creatinine 1.2 mg/dL (0.6-1.0) 1.1 mg/dL (0.6-1.0) Estimated GFR (Cockcroft-Gault) 53.4 59.1 BUN/Creatinine Ratio 10 (6-20) 12 (6-20) Glucose Level 135 mg/dL (70-99) 143 mg/dL (70-99) Calcium Level 10.3 mg/dL (8.5-10.1) 10.4 mg/dL (8.5-10.1) Magnesium Level 1.9 mg/dL (1.8-2.4) Total Bilirubin 0.5 mg/dL (0.2-1.0) 0.5 mg/dL (0.2-1.0) Aspartate Amino Transf (AST/SGOT) 21 U/L (15-37) 18 U/L (15-37) Alanine Aminotransferase (ALT/SGPT) 24 U/L (14-59) 21 U/L (14-59) Alkaline Phosphatase 80 U/L (46-116) 74 U/L (46-116) Total Protein 8.2 g/dL (6.4-8.2) 7.6 g/dL (6.4-8.2) Albumin 4.1 g/dL (3.4-5.0) 3.7 g/dL (3.4-5.0) Albumin/Globulin Ratio 1.0 (1.0-1.7) 0.9 (1.0-1.7) Lipase 62 U/L (73-393) Segmented Neutrophils % 85 % (35-66) Lymphocytes % 10 % (24-48) Monocytes % 5 % (0-10) Platelet Estimate Adequate (ADEQUATE) Prothrombin Time 30.2 SEC (11.7-14.0) Prothromb Time International Ratio 2.9 (0.8-1.1) Ionized Calcium 1.29 mmol/L (1.13-1.32) Assessment/Plan Assessment/Plan IMP DEHYDRATION CORINNE WITH CR OF 1.3 MILD HYPERCALCEMIA-VIT D AND OR DIURETIC RELATED N/V/D-?GASTROENTERITIS OBESITY [id number] TO TAKE PO RIGHT FLANK AREA LIPOMATOUS MASS-NO CHANGE SINCE 2009 PLAN HYDRATION STOP HER DIURETICS AND VIT D GI EVALUATION CATAPRES PATCH FOR NOW HOLD METFORMIN AND ALDACTONE WILL FOLLOW EMBER BACK MD Aug 20, 2018 12:52
[2018-08-20] MEDS: POTASSIUM CL 20MEQ D5-0.45NACL 1,000 ML IV SCH (12:55)
[2018-08-20] MEDS: DOCUSATE SODIUM 100 MG CAPSULE. PO SCH ×2 (12:57→20:22)
[2018-08-20] MEDS: ASPIRIN ENTERIC COATED 81 MG TABLET.DR. PO SCH (12:57)
[2018-08-20] MEDS: CARVEDILOL 12.5 MG TABLET. PO SCH ×2 (12:57→18:51)
[2018-08-20] MEDS: ONDANSETRON PF 4 MG/2 ML VIAL. IV PRN (12:59)
[2018-08-20] MEDS ORDERED: ONDANSETRON PF 4 MG/2 ML VIAL. IV PRN (13:15)
[2018-08-20] MEDS: cloNIDine TTS-2 1 PATCH PATCH TD SCH (13:56)
--- NOTE | 2018-08-20 15:37 | PDOC ---
PROGRESS NOTES Chief Complaint Chief Complaint nausea and vomiting and diarrhea, acute viral enteritis accelerated htn, noted cognitive decline or early dementia by pt primary care per her son obesity, BMI 42 History of Present Illness History of Present Illness consult renal and Cv cont current home meds reconciled this AM add other,, pRN Vitals Vitals Vital Signs Date Time Temp Pulse Resp B/P (MAP) Pulse Ox O2 Delivery O2 Flow Rate FiO2 08/20/18 15:00 98.7 71 16 199/103 (135) 94 Room Air 98.7 Physical Exam General: Alert, Cooperative, No acute distress Heart: Regular rate Abdomen: Normal bowel sounds, Soft, No tenderness Extremities: No clubbing Skin: No breakdown Labs LABS Laboratory Tests Test 08/20/18 07:42 White Blood Count 5.0 x10^3/uL (4.0-11.0) Red Blood Count 5.28 x10^6/uL (3.50-5.40) Hemoglobin 15.6 g/dL (12.0-15.5) Hematocrit 46.6 % (36.0-47.0) Mean Corpuscular Volume 88 fL (79-100) Mean Corpuscular Hemoglobin 30 pg (25-35) Mean Corpuscular Hemoglobin Concent 33 g/dL (31-37) Red Cell Distribution Width 13.6 % (11.5-14.5) Platelet Count 157 x10^3/uL (140-400) Neutrophils (%) (Auto) 86 % (31-73) Lymphocytes (%) (Auto) 10 % (24-48) Monocytes (%) (Auto) 4 % (0-9) Eosinophils (%) (Auto) 0 % (0-3) Basophils (%) (Auto) 0 % (0-3) Neutrophils # (Auto) 4.3 x10^3uL (1.8-7.7) Lymphocytes # (Auto) 0.5 x10^3/uL (1.0-4.8) Monocytes # (Auto) 0.2 x10^3/uL (0.0-1.1) Eosinophils # (Auto) 0.0 x10^3/uL (0.0-0.7) Basophils # (Auto) 0.0 x10^3/uL (0.0-0.2) Segmented Neutrophils % 85 % (35-66) Lymphocytes % 10 % (24-48) Monocytes % 5 % (0-10) Platelet Estimate Adequate (ADEQUATE) Prothrombin Time 30.2 SEC (11.7-14.0) Prothromb Time International Ratio 2.9 (0.8-1.1) Sodium Level 139 mmol/L (136-145) Potassium Level 3.9 mmol/L (3.5-5.1) Chloride Level 103 mmol/L (98-107) Carbon Dioxide Level 27 mmol/L (21-32) Anion Gap 9 (6-14) Blood Urea Nitrogen 13 mg/dL (7-20) Creatinine 1.1 mg/dL (0.6-1.0) Estimated GFR (Cockcroft-Gault) 59.1 BUN/Creatinine Ratio 12 (6-20) Glucose Level 143 mg/dL (70-99) Calcium Level 10.4 mg/dL (8.5-10.1) Ionized Calcium 1.29 mmol/L (1.13-1.32) Total Bilirubin 0.5 mg/dL (0.2-1.0) Aspartate Amino Transf (AST/SGOT) 18 U/L (15-37) Alanine Aminotransferase (ALT/SGPT) 21 U/L (14-59) Alkaline Phosphatase 74 U/L (46-116) Total Protein 7.6 g/dL (6.4-8.2) Albumin 3.7 g/dL (3.4-5.0) Albumin/Globulin Ratio 0.9 (1.0-1.7) Assessment and Plan Assessmemt and Plan Problems Medical Problems: (1) Diarrhea Status: Acute (2) Elevated serum creatinine Status: Acute (3) Hypertension Status: Acute (4) Vomiting Status: Acute Comment Review of Relevant I have reviewed the following items grady (where applicable) has been applied. Labs Laboratory Tests Test 08/19/18 13:15 08/19/18 13:33 08/20/18 07:42 Urine Collection Type Unknown Urine Color Yellow Urine Clarity Clear Urine pH 7.0 Urine Specific [place] 1.015 Urine Protein Negative mg/dL (NEG-TRACE) Urine Glucose (UA) Negative mg/dL (NEG) Urine Ketones (Stick) Negative mg/dL (NEG) Urine Blood Negative (NEG) Urine Nitrite Negative (NEG) Urine Bilirubin Negative (NEG) Urine Urobilinogen Dipstick 0.2 mg/dL (0.2 mg/dL) Urine Leukocyte Esterase Negative (NEG) Urine RBC Rare /HPF (0-2) Urine WBC Rare /HPF (0-4) Urine Squamous Epithelial Cells Occ /LPF Urine Bacteria 0 /HPF (0-FEW) White Blood Count 2.9 x10^3/uL (4.0-11.0) 5.0 x10^3/uL (4.0-11.0) Red Blood Count 5.52 x10^6/uL (3.50-5.40) 5.28 x10^6/uL (3.50-5.40) Hemoglobin 15.9 g/dL (12.0-15.5) 15.6 g/dL (12.0-15.5) Hematocrit 48.9 % (36.0-47.0) 46.6 % (36.0-47.0) Mean Corpuscular Volume 89 fL (79-100) 88 fL (79-100) Mean Corpuscular Hemoglobin 29 pg (25-35) 30 pg (25-35) Mean Corpuscular Hemoglobin Concent 33 g/dL (31-37) 33 g/dL (31-37) Red Cell Distribution Width 13.8 % (11.5-14.5) 13.6 % (11.5-14.5) Platelet Count 156 x10^3/uL (140-400) 157 x10^3/uL (140-400) Neutrophils (%) (Auto) 74 % (31-73) 86 % (31-73) Lymphocytes (%) (Auto) 20 % (24-48) 10 % (24-48) Monocytes (%) (Auto) 5 % (0-9) 4 % (0-9) Eosinophils (%) (Auto) 0 % (0-3) 0 % (0-3) Basophils (%) (Auto) 1 % (0-3) 0 % (0-3) Neutrophils # (Auto) 2.1 x10^3uL (1.8-7.7) 4.3 x10^3uL (1.8-7.7) Lymphocytes # (Auto) 0.6 x10^3/uL (1.0-4.8) 0.5 x10^3/uL (1.0-4.8) Monocytes # (Auto) 0.1 x10^3/uL (0.0-1.1) 0.2 x10^3/uL (0.0-1.1) Eosinophils # (Auto) 0.0 x10^3/uL (0.0-0.7) 0.0 x10^3/uL (0.0-0.7) Basophils # (Auto) 0.0 x10^3/uL (0.0-0.2) 0.0 x10^3/uL (0.0-0.2) Sodium Level 139 mmol/L (136-145) 139 mmol/L (136-145) Potassium Level 4.0 mmol/L (3.5-5.1) 3.9 mmol/L (3.5-5.1) Chloride Level 102 mmol/L (98-107) 103 mmol/L (98-107) Carbon Dioxide Level 29 mmol/L (21-32) 27 mmol/L (21-32) Anion Gap 8 (6-14) 9 (6-14) Blood Urea Nitrogen 12 mg/dL (7-20) 13 mg/dL (7-20) Creatinine 1.2 mg/dL (0.6-1.0) 1.1 mg/dL (0.6-1.0) Estimated GFR (Cockcroft-Gault) 53.4 59.1 BUN/Creatinine Ratio 10 (6-20) 12 (6-20) Glucose Level 135 mg/dL (70-99) 143 mg/dL (70-99) Calcium Level 10.3 mg/dL (8.5-10.1) 10.4 mg/dL (8.5-10.1) Magnesium Level 1.9 mg/dL (1.8-2.4) Total Bilirubin 0.5 mg/dL (0.2-1.0) 0.5 mg/dL (0.2-1.0) Aspartate Amino Transf (AST/SGOT) 21 U/L (15-37) 18 U/L (15-37) Alanine Aminotransferase (ALT/SGPT) 24 U/L (14-59) 21 U/L (14-59) Alkaline Phosphatase 80 U/L (46-116) 74 U/L (46-116) Total Protein 8.2 g/dL (6.4-8.2) 7.6 g/dL (6.4-8.2) Albumin 4.1 g/dL (3.4-5.0) 3.7 g/dL (3.4-5.0) Albumin/Globulin Ratio 1.0 (1.0-1.7) 0.9 (1.0-1.7) Lipase 62 U/L (73-393) Segmented Neutrophils % 85 % (35-66) Lymphocytes % 10 % (24-48) Monocytes % 5 % (0-10) Platelet Estimate Adequate (ADEQUATE) Prothrombin Time 30.2 SEC (11.7-14.0) Prothromb Time International Ratio 2.9 (0.8-1.1) Ionized Calcium 1.29 mmol/L (1.13-1.32) Laboratory Tests Test 08/20/18 07:42 White Blood Count 5.0 x10^3/uL (4.0-11.0) Red Blood Count 5.28 x10^6/uL (3.50-5.40) Hemoglobin 15.6 g/dL (12.0-15.5) Hematocrit 46.6 % (36.0-47.0) Mean Corpuscular Volume 88 fL (79-100) Mean Corpuscular Hemoglobin 30 pg (25-35) Mean Corpuscular Hemoglobin Concent 33 g/dL (31-37) Red Cell Distribution Width 13.6 % (11.5-14.5) Platelet Count 157 x10^3/uL (140-400) Neutrophils (%) (Auto) 86 % (31-73) Lymphocytes (%) (Auto) 10 % (24-48) Monocytes (%) (Auto) 4 % (0-9) Eosinophils (%) (Auto) 0 % (0-3) Basophils (%) (Auto) 0 % (0-3) Neutrophils # (Auto) 4.3 x10^3uL (1.8-7.7) Lymphocytes # (Auto) 0.5 x10^3/uL (1.0-4.8) Monocytes # (Auto) 0.2 x10^3/uL (0.0-1.1) Eosinophils # (Auto) 0.0 x10^3/uL (0.0-0.7) Basophils # (Auto) 0.0 x10^3/uL (0.0-0.2) Segmented Neutrophils % 85 % (35-66) Lymphocytes % 10 % (24-48) Monocytes % 5 % (0-10) Platelet Estimate Adequate (ADEQUATE) Prothrombin Time 30.2 SEC (11.7-14.0) Prothromb Time International Ratio 2.9 (0.8-1.1) Sodium Level 139 mmol/L (136-145) Potassium Level 3.9 mmol/L (3.5-5.1) Chloride Level 103 mmol/L (98-107) Carbon Dioxide Level 27 mmol/L (21-32) Anion Gap 9 (6-14) Blood Urea Nitrogen 13 mg/dL (7-20) Creatinine 1.1 mg/dL (0.6-1.0) Estimated GFR (Cockcroft-Gault) 59.1 BUN/Creatinine Ratio 12 (6-20) Glucose Level 143 mg/dL (70-99) Calcium Level 10.4 mg/dL (8.5-10.1) Ionized Calcium 1.29 mmol/L (1.13-1.32) Total Bilirubin 0.5 mg/dL (0.2-1.0) Aspartate Amino Transf (AST/SGOT) 18 U/L (15-37) Alanine Aminotransferase (ALT/SGPT) 21 U/L (14-59) Alkaline Phosphatase 74 U/L (46-116) Total Protein 7.6 g/dL (6.4-8.2) Albumin 3.7 g/dL (3.4-5.0) Albumin/Globulin Ratio 0.9 (1.0-1.7) Medications Current Medications Ondansetron HCl (Zofran) 4 mg 1X ONCE IM Last administered on 08/19/18at 13:58; Start 08/19/18 at 14:00; Stop 08/19/18 at 14:01; Status DC Sodium Chloride 1,000 ml @ 1,000 mls/hr 1X ONCE IV Last administered on 08/19/18at 14:42; Start 08/19/18 at 14:30; Stop 08/19/18 at 15:29; Status DC Ondansetron HCl (Zofran) 4 mg PRN Q8HRS PRN IV NAUSEA/VOMITING Last administer ed on 08/20/18at 12:59; Start 08/19/18 at 15:45; Stop 08/20/18 at 15:44 Morphine Sulfate (Morphine Sulfate) 2 mg PRN Q2HR PRN IV PAIN; Start 08/19/18 at 15:45; Stop 08/20/18 at 15:44 Hydralazine HCl (Apresoline Inj) 10 mg 1X ONCE IVP Last administered on 08/19/18at 17:25; Start 08/19/18 at 17:15; Stop 08/19/18 at 17:17; Status DC Metoclopramide HCl (Reglan Vial) 10 mg 1X ONCE IV Last administered on 08/19/18at 18:32; Start 08/19/18 at 18:15; Stop 08/19/18 at 18:16; Status DC Amlodipine Besylate (Norvasc) 5 mg 1X ONCE PO ; Start 08/19/18 at 19:30; Stop 08/19/18 at 19:31; Status DC Amlodipine Besylate (Norvasc) 5 mg DAILY PO Last administered on 08/20/18at 09:09; Start 08/20/18 at 09:00 Lisinopril (Prinivil) 20 mg DAILY PO Last administered on 08/20/18at 09:09; Start 08/20/18 at 09:00; Stop 08/20/18 at 10:45; Status DC Lisinopril (Prinivil) 20 mg 1X ONCE PO ; Start 08/19/18 at 19:30; Stop 08/19/18 at 19:31; Status DC Enoxaparin Sodium (Lovenox Per Pharmacy Prophylaxis Dosing) 1 each PRN DAILY PRN MC SEE COMMENTS; Start 08/19/18 at 20:15; Stop 08/20/18 at 11:44; Status DC Enoxaparin Sodium (Lovenox 40mg Syringe) 40 mg Q12H SQ Last administered on 08/19/18at 21:31; Start 08/19/18 at 21:00; Stop 08/20/18 at 11:44; Status DC Clonidine HCl (Catapres Tts-1) 1 patch WEEKLY TD Last administered on 08/19/18at 21:30; Start 08/19/18 at 21:00; Stop 08/20/18 at 11:33; Status DC Pantoprazole Sodium (PROTONIX VIAL for IV PUSH) 40 mg BIDAC IVP Last administered on 08/20/18at 09:40; Start 08/20/18 at 09:00 Carvedilol (Coreg) 12.5 mg BIDWMEALS PO Last administered on 08/20/18at 12:57; Start 08/20/18 at 10:30 Labetalol HCl (Normodyne Iv Push) 20 mg PRN Q2HR PRN IVP HYPERTENSION, SEE COMMENTS Last administered on 08/20/18at 14:18; Start 08/20/18 at 10:15 Aspirin (Ecotrin) 81 mg DAILY PO Last administered on 08/20/18at 12:57; Start 08/20/18 at 11:00 Atorvastatin Calcium (Lipitor) 40 mg HS PO ; Start 08/20/18 at 21:00 Bupropion HCl (Wellbutrin Sr) 150 mg BID PO ; Start 08/20/18 at 21:00 Vitamin D (Vitamin D3) 1,000 unit DAILY PO ; Start 08/20/18 at 11:00; Stop 08/20/18 at 12:53; Status DC Clonidine HCl (Catapres) 0.3 mg QHS PO ; Start 08/20/18 at 21:00; Stop 08/20/18 at 21:00; Status DC Docusate Sodium (Colace) 100 mg BID PO Last administered on 08/20/18at 12:57; Start 08/20/18 at 11:00 Lisinopril (Prinivil) 20 mg BID PO ; Start 08/20/18 at 21:00 Oxycodone/ Acetaminophen (Percocet 10/325) 1 tab PRN Q6HRS PRN PO PAIN; Start 08/20/18 at 10:45 Hydrochlorothiazide (Hydrodiuril) 25 mg DAILY PO ; Start 08/20/18 at 11:00; Stop 08/20/18 at 12:53; Status DC Polyethylene Glycol (miraLAX PACKET) 17 gm DAILY PO ; Start 08/20/18 at 11:00 Spironolactone (Aldactone) 25 mg DAILY PO ; Start 08/20/18 at 12:00; Stop 08/20/18 at 12:53; Status DC Warfarin Sodium (Coumadin) 5 mg 1X WARF ONCE PO ; Start 08/20/18 at 16:00; Stop 08/20/18 at 16:01 Potassium Chloride/Dextrose/ Sod Cl 1,000 ml @ 75 mls/hr [id number] IV Last administered on 08/20/18at 12:55; Start 08/20/18 at 11:00 Warfarin Sodium (Coumadin Per Pharmacy) 1 each PRN DAILY PRN MC SEE COMMENTS; Start 08/20/18 at 12:00 Clonidine HCl (Catapres Tts-2) 1 patch We TD Last administered on 08/20/18at 13:56; Start 08/20/18 at 13:00 Ondansetron HCl (Zofran) 4 mg PRN Q8HRS PRN IV NAUSEA/VOMITING; Start 08/20/18 at 13:15 Active Scripts Active Reported Spironolactone 25 Mg Tablet 1 Tab PO BID PRN Warfarin Sodium 5 Mg Tablet 5 Mg PO DAILY Miralax (Polyethylene Glycol 3350) 17 Gm Powd.pack 1 Packet PO DAILY Percocet 10-325 Mg Tablet (Oxycodone/Acetaminophen) 1 Each Tablet 1 Tab PO PRN Q6HRS PRN Metoprolol Tartrate 50 Mg Tablet 1 Tab PO BID Metformin Hcl 500 Mg Tablet 500 Mg PO BIDWMEALS Lisinopril 20 Mg Tablet 1 Tab PO BID Hydrochlorothiazide Tablet (Hydrochlorothiazide) 12.5 Mg Tablet 25 Mg PO DAILY Docusate Sodium 100 Mg Capsule 1 Cap PO BID Clonidine Hcl 0.3 Mg Tablet 1 Tab PO QHS Vitamin D3 (Cholecalciferol (Vitamin D3)) 1,000 Unit Tablet 1 Tab PO DAILY [calcium] Wellbutrin Sr (Bupropion Hcl) 150 Mg Tablet.er 1 Tab PO BID Atorvastatin Calcium 40 Mg Tablet 40 Mg PO HS Aspir-Low (Aspirin) 81 Mg Tablet.dr 1 Tab PO DAILY Proventil Hfa Inhaler (Albuterol Sulfate) 6.7 Gm Hfa.aer.ad 2 Puff IH PRN Q4HRS PRN Vitals/I & O Vital Sign - Last 24 Hours 08/19/18 08/19/18 08/19/18 08/19/18 16:30 17:25 17:30 18:47 Temp 97.8 97.8 Pulse 66 70 72 72 Resp 17 17 16 B/P (MAP) 219/113 (148) 227/113 211/116 (147) 196/103 (134) Pulse Ox 98 99 100 O2 Delivery Room Air Room Air Room Air 4/23/19 08/19/18 08/20/18 08/20/18 22:30 23:00 03:00 07:00 Temp 97.8 97.9 98.5 97.8 97.9 98.5 Pulse 80 75 92 Resp 16 16 22 B/P (MAP) 199/98 (131) 156/78 (104) 200/104 (136) Pulse Ox 92 96 94 O2 Delivery Room Air Room Air Room Air Room Air 08/20/18 08/20/18 08/20/18 08/20/18 09:09 09:09 09:33 11:00 Temp 98.8 98.8 Pulse 92 92 89 89 Resp 18 B/P (MAP) 200/104 200/104 184/100 (128) 165/73 (103) Pulse Ox 94 95 O2 Delivery Room Air Room Air 08/20/18 08/20/18 08/20/18 08/20/18 12:57 13:53 14:18 15:00 Temp 98.7 98.7 Pulse 89 80 77 71 Resp 16 B/P (MAP) 165/73 201/101 (134) 197/100 199/103 (135) Pulse Ox 94 O2 Delivery Room Air Room Air Intake and Output 08/19/18 08/19/18 08/20/18 15:00 23:00 07:00 Intake Total 0 ml 0 ml Balance 0 ml 0 ml SHAQUILLE VELEZ MD Aug 20, 2018 15:37
[2018-08-20] MEDS ORDERED: WARFARIN 5 MG TABLET. PO ONE (16:00)
--- NOTE | 2018-08-20 16:13 | CARD ---
MR#: [id number] Date of Study: 08/20/2018 Ordering Physician: SHAQUILLE VELEZ, Referring Physician: SHAQUILLE VELEZ, Tech: Amber Banks APPROVED REPORT EXAM: Two-dimensional and M-mode echocardiogram with Doppler and color Doppler. Other Information Quality : GoodHR: 75bpm Rhythm : NSRTechnically limited study due to body habitus. INDICATION Hypertension/HCVD 2D DIMENSIONS RVDd3.0 (2.9-3.5cm)Left Atrium(2D)3.6 (1.6-4.0cm) IVSd1.2 (0.7-1.1cm)Aortic Root(2D)2.6 (2.0-3.7cm) LVDd5.2 (3.9-5.9cm)LVOT Diameter2.1 (1.8-2.4cm) PWd1.1 (0.7-1.1cm)LVDs3.3 (2.5-4.0cm) FS (%) 37.1 %SV87.2 ml LVEF(%)66.6 (>50%) Aortic Valve AoV Peak Rommel.183.9cm/sAoV VTI39.8cm AO Peak GR.13.5mmHgLVOT VTI 18.99cm AO Mean GR.9mmHg Mitral Valve MV E Irzblifb78.4cm/sMV DECEL [id number] MV A Csqogsjy16.0cm/sE/A Ratio0.5 TDI Lateral E' P. V8.43cm/sMedial E' P. V6.95cm/s E/Lateral E'5.9E/Medial E'7.1 Tricuspid Valve TR P. Agijewhy584bq/sRAP [id number] TR Peak Gr.[id number] Pulmonary Vein S1 Tvinmnua12.2cm/sS2 Vtwdtimt00.81cm/s D2 Plxndhwg21.8cm/sPVa [id number] LEFT VENTRICLE The left ventricle is normal size. There is borderline to mild concentric left ventricular hypertroph y. The left ventricular systolic function is normal. The Ejection Fraction is 55-60%. There is normal LV segmental wall motion. Transmitral Doppler flow pattern is Grade I-abnormal relaxation pattern. RIGHT VENTRICLE The right ventricle is normal size. There is normal right ventricular wall thickness. The right ventr icular systolic function is normal. ATRIA The left atrium size is normal. The right atrium size is normal. The interatrial septum is intact wit h no evidence for an atrial septal defect or patent foramen ovale as noted on 2-D or Doppler imaging. AORTIC VALVE The aortic valve is thickened but opens well. Doppler and Color Flow revealed no significant aortic r egurgitation. There is no significant aortic valvular stenosis. MITRAL VALVE The mitral valve is normal in structure and function. There is no evidence of mitral valve prolapse. There is no mitral valve stenosis. Doppler and Color Flow revealed no mitral valve regurgitation note d. TRICUSPID VALVE The tricuspid valve is normal in structure and function. Doppler and Color Flow revealed trace tricus pid valve regurgitation noted with an estimated PAP of 20 mmHg. There is no tricuspid valve stenosis. PULMONIC VALVE The pulmonic valve is not well visualized. Doppler and Color Flow revealed no pulmonic valvular regur gitation. GREAT VESSELS The aortic root is normal in size. The IVC is normal in size and collapses >50% with inspiration. PERICARDIAL EFFUSION There is no evidence of significant pericardial effusion. Critical Notification Critical Value: No <Conclusion> The left ventricular systolic function is normal. The Ejection Fraction is 55-60%. There is normal LV segmental wall motion. Transmitral Doppler flow pattern is Grade I-abnormal relaxation pattern. Trace tricuspid valve regurgitation noted with an estimated PAP of 20 mmHg. There is no evidence of significant pericardial effusion. Signed by : Chas Yip, Electronically Approved : 08/20/2018 16:13:20
[2018-08-20] MEDS: hydrALAZINE 20 MG/ML VIAL. IVP PRN (20:04)
[2018-08-20] MEDS: LISINOPRIL 20 MG TABLET PO SCH (20:05)
[2018-08-20] MEDS: buPROPion SR 150 MG TABLET.SA PO SCH (20:22)
[2018-08-20] MEDS: ATORVASTATIN CALCIUM 40 MG TABLET. PO SCH (20:22)
[2018-08-20] MEDS ORDERED: cloNIDine HCL 0.3 MG TABLET PO SCH (21:00)
[2018-08-21] VITALS (7 sets, daily range): BP systolic 129–212; BP diastolic 71–106
[2018-08-21] MEDS: POTASSIUM CL 20MEQ D5-0.45NACL 1,000 ML IV SCH ×2 (01:59→14:20)
[2018-08-21 04:29] LABS: HEMATOCRIT 43.9 % (36.0-47.0); HEMOGLOBIN 14.7 g/dL (12.0-15.5); RED CELL DISTRIBUTION WIDTH 13.6 % (11.5-14.5); WHITE BLOOD COUNT 6.1 x10^3/uL (4.0-11.0)
[2018-08-21 04:46] LABS: CALCIUM 10.1 mg/dL (8.5-10.1); CREATININE 1.1 mg/dL (0.6-1.0); GFR 59.1; MAGNESIUM 1.9 mg/dL (1.8-2.4); PHOSPHORUS 2.8 mg/dL (2.6-4.7); POTASSIUM 3.6 mmol/L (3.5-5.1)
[2018-08-21] MEDS: PANTOPRAZOLE IV PUSH 40 MG VIAL. IVP SCH ×2 (07:41→16:27)
[2018-08-21] MEDS: buPROPion SR 150 MG TABLET.SA PO SCH ×2 (09:00→21:08)
[2018-08-21] MEDS: DOCUSATE SODIUM 100 MG CAPSULE. PO SCH ×2 (09:00→21:00)
[2018-08-21] MEDS: ASPIRIN ENTERIC COATED 81 MG TABLET.DR. PO SCH (09:00)
[2018-08-21] MEDS ORDERED: amLODIPine BESYLATE 5 MG TABLET PO SCH (09:00)
[2018-08-21] MEDS: POLYETHYLENE GLYCOL 3350 17 GM PACKET. PO SCH ×2 (09:00→21:00)
[2018-08-21] MEDS: amLODIPine BESYLATE 5 MG TABLET PO SCH (09:00)
[2018-08-21] MEDS: LISINOPRIL 20 MG TABLET PO SCH ×2 (09:01→21:08)
[2018-08-21] MEDS: CARVEDILOL 12.5 MG TABLET. PO SCH ×2 (09:11→16:31)
--- NOTE | 2018-08-21 10:03 | PDOC ---
Subjective: Subjective: Says she feels terrible because "I'm wet" - had some urinary incontinence, staff coming in to clean her her. Says she drank some liquids yesterday and kept them down, not sure if she feels hungry this morning, denies nausea and denies abd pain. Hasn't stooled. Then I talked with her daughter - she says that after we saw her yesterday, she had another episode of bilious emesis. Objective: Objective: Reviewed w/ RN earlier this morning - transferred to cardiac floor ?for HTN "and lethargy" - no vomiting this morning, no reports of vomiting in nursing report or documented in chart. Vital Signs: Vital Signs Date Time Temp Pulse Resp B/P (MAP) Pulse Ox O2 Delivery O2 Flow Rate FiO2 08/21/18 09:11 66 172/91 08/21/18 08:00 Room Air 08/21/18 07:00 97.8 16 92 97.8 Labs: Laboratory Tests Test 08/21/18 03:25 White Blood Count 6.1 x10^3/uL Red Blood Count 5.00 x10^6/uL Hemoglobin 14.7 g/dL Hematocrit 43.9 % Mean Corpuscular Volume 88 fL Mean Corpuscular Hemoglobin 29 pg Mean Corpuscular Hemoglobin Concent 33 g/dL Red Cell Distribution Width 13.6 % Platelet Count 163 x10^3/uL Sodium Level 136 mmol/L Potassium Level 3.6 mmol/L Chloride Level 100 mmol/L Carbon Dioxide Level 27 mmol/L Anion Gap 9 Blood Urea Nitrogen 14 mg/dL Creatinine 1.1 mg/dL Estimated GFR (Cockcroft-Gault) 59.1 Glucose Level 127 mg/dL Calcium Level 10.1 mg/dL Phosphorus Level 2.8 mg/dL Magnesium Level 1.9 mg/dL Thyroid Stimulating Hormone (TSH) 1.137 uIU/mL Imaging: Echocardiogram 08/20 <Conclusion> The left ventricular systolic function is normal. The Ejection Fraction is 55-60%. There is normal LV segmental wall motion. Transmitral Doppler flow pattern is Grade I-abnormal relaxation pattern. Trace tricuspid valve regurgitation noted with an estimated PAP of 20 mmHg. There is no evidence of significant pericardial effusion. PE: GEN: uncomfortable LUNGS: CTAB anteriorly HEART: RRR ABD: NABS, S/ND/NT NEURO/PSYCH: A & O 3 - more awake than yesterday A/P: Vomiting HTN ?dementia -- Stable Hgb, no reports of bleeding, varying reports re: vomiting. Hold on EGD for now. Try clears, observe, continue IV PPI. PEDRO JONES Aug 21, 2018 10:03
[2018-08-21] MEDS: hydrALAZINE 20 MG/ML VIAL. IVP PRN ×2 (10:04→15:11)
--- NOTE | 2018-08-21 10:09 | PDOC2 ---
OVIDIO THOMAS FUR FLOOR WORKER 08/21/18 1008: CARDIAC CONSULT DATE OF CONSULT Date of Consult DATE: 08/21/18 TIME: 09:50 REASON FOR CONSULT Reason for Consult: Accelerated HTN REFERRING PHYSICIAN Referring Physician: René SOURCE Source: Chart review, Patient HISTORY OF PRESENT ILLNESS HISTORY OF PRESENT ILLNESS This is a pleasant 73 yo female admitted for complains of abdominal pain and nausea and vomiting. This has been going on in the last 3 days and unable to take her BP meds due to her GI symptoms. Her BP has been significantly elevated since admission prompting this consult. Reports no chest pain or SOA. Reports that she lives alone and son lives close by for help. Denies any hx of arrhythmias, heart disease but significant for CV risks such as HLP, CVA, HTN. She is then transferred to [facility] due to IV BP meds that could not be given in med surg tele. PAST MEDICAL HISTORY Cardiovascular: HTN, Hyperlipidemia Pulmonary: COPD, Pulmonary embolus (with DVT), Pneumonia CENTRAL NERVOUS SYSTEM: CVA, Dementia GI: GERD, Other (colon polyps) Heme/Onc: No pertinent hx Hepatobiliary: Cholelithiasis Musculoskeletal: Osteoarthritis Renal/: UTI Endocrine: Diabetes (2) Dermatology: No pertinent hx PAST SURGICAL HISTORY Past Surgical History: Cholecystectomy, Cataract Removal, Total knee replacement (bilateral ), Other (polypectomy) FAMILY HISTORY Family History noncontributory to CV SOCIAL HISTORY Smoke: <1 pack per day ALCOHOL: none Drugs: None Lives: with Family CURRENT MEDICATIONS CURRENT MEDICATIONS Current Medications Medications (Trade) Dose Ordered Sig/Maximiliano Route PRN Reason Start Time Stop Time Status Last Admin Dose Admin Carvedilol (Coreg) 12.5 mg BIDWMEALS PO 08/20/18 10:30 08/21/18 09:11 Labetalol HCl (Normodyne Iv Push) 20 mg PRN Q2HR PRN IVP HYPERTENSION, 2ND CHOICE 08/20/18 10:15 08/20/18 14:18 Aspirin (Ecotrin) 81 mg DAILY PO 08/20/18 11:00 08/20/18 12:57 Bupropion HCl (Wellbutrin Sr) 150 mg BID PO 08/20/18 21:00 08/21/18 09:00 Docusate Sodium (Colace) 100 mg BID PO 08/20/18 11:00 08/20/18 12:57 Lisinopril (Prinivil) 20 mg BID PO 08/20/18 21:00 08/21/18 09:01 Warfarin Sodium (Coumadin) 5 mg 1X WARF ONCE PO 08/20/18 16:00 08/20/18 16:01 DC 08/20/18 18:51 Potassium Chloride/Dextrose/ Sod Cl 1,000 ml @ 75 mls/hr [id number] IV 08/20/18 11:00 08/21/18 01:59 Clonidine HCl (Catapres Tts-2) 1 patch We TD 08/20/18 13:00 08/20/18 13:56 Ondansetron HCl (Zofran) 4 mg PRN Q8HRS PRN IV NAUSEA/VOMITING 08/20/18 13:15 08/21/18 09:04 Hydralazine HCl (Apresoline Inj) 10 mg PRN Q2HRS PRN IVP ELEVATED BP, 1ST CHOICE 08/20/18 18:15 08/20/18 20:04 ALLERGIES ALLERGIES: Coded Allergies: Penicillins (Verified Allergy, Intermediate, 09/20/15) iodine (Verified Allergy, Intermediate, 09/20/15) ROS Review of System 14 point ROS evaluated with pertinent positives noted per HPI PHYSICAL EXAM General: Alert, Oriented X3, Cooperative, No acute distress HEENT: Atraumatic, Mucous membr. moist/pink Lungs: Clear to auscultation, Normal air movement Heart: Regular rate (Sr no ectopies), Normal S1, Normal S2, No murmurs Abdomen: Soft, No tenderness Extremities: No cyanosis, No edema Skin: No breakdown, No significant lesion Neuro: Normal speech, Sensation intact Psych/Mental Status: Mental status NL, Mood NL MUSCULOSKELETAL: Osteoarthritic changes both hands VITALS VITALS Vital Signs Date Time Temp Pulse Resp B/P (MAP) Pulse Ox O2 Delivery O2 Flow Rate FiO2 08/21/18 09:11 66 172/91 08/21/18 08:00 Room Air 08/21/18 07:00 97.8 16 92 97.8 LABS Lab: Laboratory Tests Test 08/21/18 03:25 White Blood Count 6.1 x10^3/uL (4.0-11.0) Red Blood Count 5.00 x10^6/uL (3.50-5.40) Hemoglobin 14.7 g/dL (12.0-15.5) Hematocrit 43.9 % (36.0-47.0) Mean Corpuscular Volume 88 fL (79-100) Mean Corpuscular Hemoglobin 29 pg (25-35) Mean Corpuscular Hemoglobin Concent 33 g/dL (31-37) Red Cell Distribution Width 13.6 % (11.5-14.5) Platelet Count 163 x10^3/uL (140-400) Sodium Level 136 mmol/L (136-145) Potassium Level 3.6 mmol/L (3.5-5.1) Chloride Level 100 mmol/L (98-107) Carbon Dioxide Level 27 mmol/L (21-32) Anion Gap 9 (6-14) Blood Urea Nitrogen 14 mg/dL (7-20) Creatinine 1.1 mg/dL (0.6-1.0) Estimated GFR (Cockcroft-Gault) 59.1 Glucose Level 127 mg/dL (70-99) Calcium Level 10.1 mg/dL (8.5-10.1) Phosphorus Level 2.8 mg/dL (2.6-4.7) Magnesium Level 1.9 mg/dL (1.8-2.4) Thyroid Stimulating Hormone (TSH) 1.137 uIU/mL (0.358-3.74) ECHOCARDIOGRAM ECHOCARDIOGRAM <Conclusion> The left ventricular systolic function is normal. The Ejection Fraction is 55-60%. There is normal LV segmental wall motion. Transmitral Doppler flow pattern is Grade I-abnormal relaxation pattern. Trace tricuspid valve regurgitation noted with an estimated PAP of 20 mmHg. There is no evidence of significant pericardial effusion. DATE: 08/20/18 161 ASSESSMENT/PLAN ASSESSMENT/PLAN 1. Abdominal pain/n/v: GI following 2. Accelerated HTN: likely due inability to take her PO meds in the last 3 days plus her GI symptoms. Remains labile 3. HLP 4. Hx of CVA 5. 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 TSH and TTE noted. If able to tolerate PO then restart home BP meds and titrate up pending trend. Increase norvasc. Hydralazine IV PRN. 2. Supportive care. INR today. Supportive care LYUBOV MARAVILLA MD 08/21/18 6249: CARDIAC CONSULT ASSESSMENT/PLAN ASSESSMENT/PLAN Pt. seen and examined. Agree with above [employer] note. No clear cardiac issues noted. BP elevated but patient is quite distressed and uncomfortable and also unable to keep food down. Normal cardiac exam. Echo wnl Supportive care. Continue current BP regiment. If no clear GI source of n/v, ? need for MRI as possible vertobasilar or cerebellar stroke? OVIDIO THOMAS APRN Aug 21, 2018 10:08 LYUBOV MARAVILLA MD Aug 21, 2018 21:55
--- NOTE | 2018-08-21 10:14 | NUR ---
Patient alert and oriented times three. Patient complaint of some GI upset and dizziness with movement. Patient verb. nausea relieved with medication, no emesis today. Mike Mosqueda. PARAGLIDING INSTRUCTOR here to see patient. See VS record. BP remains elevated after oral BP medication given with sip water after OK'ed with Nasreen ALICEA APRN. Patient NPO for possible EGD. See VS record and emar. Continue cares and monitor.
[2018-08-21] MEDS ORDERED: amLODIPine BESYLATE 5 MG TABLET PO ONE (10:15)
[2018-08-21 10:27] LABS: PROTHROMBIN TIME PATIENT 38.7 SEC (11.7-14.0)
--- NOTE | 2018-08-21 10:36 | NUR ---
Pharmacy Warfarin Dosing Note S:Pharmacy consulted to assist with anticoagulation therapy with target INR: 2 -3 O:GIBRAN ALVAREZ is a 73 year old F with hx DVT/PE LABS: Last INR: 4 Last HGB: 14.7 Last HCT: 43.9 Last PLT: 163 Last dose of 5 mg given on 08/20/18 at 1851 A:INR of 4 is above desired range. Target range for this patient is: 2 -3 P: Warfarin dose: Hold dose today at 1600 Bridge Therapy: none Next INR due tomorrow Pharmacy anticoagulation service will continue to follow. Nadia Wharton RPH, 08/21/18 0092
--- NOTE | 2018-08-21 10:41 | NUR ---
BP now 175/85 and pulse 73. Continue cares and monitor.
--- NOTE | 2018-08-21 10:55 | PDOC ---
PROGRESS NOTES Chief Complaint Chief Complaint 1. Abdominal pain/n/v,some hematemesis - GI following 2. Accelerated HTN: likely due inability to take her PO meds in the last 3 days plus her GI symptoms. Remains labile 3. HLP 4. Hx of CVA 5. 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 CORINNE 7. Obesity BMI 42 8. Supra Therapeutic INR with mild hematemesis History of Present Illness History of Present Illness cont to have emesis Bucket at bedside and looks weak As per GI note some thoughts of possible EGD today Has been nothing by mouth and blood pressure high as not taking BP meds sec to GI symptoms for the past 3 days or so Renal has not recommended losartan or HCTZ. Patient on clonidine and lisinopril 20 twice a day I did start Norvasc Cardiology note reviewed recommended to increase Norvasc and maybe add hydralazine as blood pressure remains to be high INR 4.0 from 2, on Coumadin for history DVT PE and CVA Some mild hematemesis otherwise no other serious bleeding Plan Reaching out to GI if they will do EGD or the need to reverse INR before EGD We'll hold warfarin In the light of minimal hematemesis might give subcutaneous vitamin K 5 mg only Recheck INR tomorrow Follow cards and renal recommendations regarding blood pressure meds Discussed with RN and patient Continue antinausea meds, add some second and third agents as nausea persists Vitals Vitals Vital Signs Date Time Temp Pulse Resp B/P (MAP) Pulse Ox O2 Delivery O2 Flow Rate FiO2 08/21/18 10:36 97.7 66 16 175/85 (115) 95 Room Air 97.7 Physical Exam General: Alert, Oriented X3, Cooperative, No acute distress Heart: Regular rate (Sr no ectopies), Normal S1, Normal S2, No murmurs Abdomen: Soft, No tenderness Extremities: No cyanosis, No edema Skin: No breakdown, No significant lesion Labs LABS Laboratory Tests Test 08/21/18 03:25 08/21/18 10:10 White Blood Count 6.1 x10^3/uL (4.0-11.0) Red Blood Count 5.00 x10^6/uL (3.50-5.40) Hemoglobin 14.7 g/dL (12.0-15.5) Hematocrit 43.9 % (36.0-47.0) Mean Corpuscular Volume 88 fL (79-100) Mean Corpuscular Hemoglobin 29 pg (25-35) Mean Corpuscular Hemoglobin Concent 33 g/dL (31-37) Red Cell Distribution Width 13.6 % (11.5-14.5) Platelet Count 163 x10^3/uL (140-400) Sodium Level 136 mmol/L (136-145) Potassium Level 3.6 mmol/L (3.5-5.1) Chloride Level 100 mmol/L (98-107) Carbon Dioxide Level 27 mmol/L (21-32) Anion Gap 9 (6-14) Blood Urea Nitrogen 14 mg/dL (7-20) Creatinine 1.1 mg/dL (0.6-1.0) Estimated GFR (Cockcroft-Gault) 59.1 Glucose Level 127 mg/dL (70-99) Calcium Level 10.1 mg/dL (8.5-10.1) Phosphorus Level 2.8 mg/dL (2.6-4.7) Magnesium Level 1.9 mg/dL (1.8-2.4) Thyroid Stimulating Hormone (TSH) 1.137 uIU/mL (0.358-3.74) Prothrombin Time 38.7 SEC (11.7-14.0) Prothromb Time International Ratio 4.0 (0.8-1.1) Review of Systems Review of Systems abd, vomiting, abdominal discomfort, no chest pain, no SOA Assessment and Plan Assessmemt and Plan Problems Medical Problems: (1) Diarrhea Status: Acute (2) Elevated serum creatinine Status: Acute (3) Hypertension Status: Acute (4) Vomiting Status: Acute Comment Review of Relevant I have reviewed the following items grady (where applicable) has been applied. Labs Laboratory Tests Test 08/19/18 13:15 08/19/18 13:33 08/20/18 07:42 08/21/18 03:25 Urine Collection Type Unknown Urine Color Yellow Urine Clarity Clear Urine pH 7.0 Urine Specific [place] 1.015 Urine Protein Negative mg/dL (NEG-TRACE) Urine Glucose (UA) Negative mg/dL (NEG) Urine Ketones (Stick) Negative mg/dL (NEG) Urine Blood Negative (NEG) Urine Nitrite Negative (NEG) Urine Bilirubin Negative (NEG) Urine Urobilinogen Dipstick 0.2 mg/dL (0.2 mg/dL) Urine Leukocyte Esterase Negative (NEG) Urine RBC Rare /HPF (0-2) Urine WBC Rare /HPF (0-4) Urine Squamous Epithelial Cells Occ /LPF Urine Bacteria 0 /HPF (0-FEW) White Blood Count 2.9 x10^3/uL (4.0-11.0) 5.0 x10^3/uL (4.0-11.0) 6.1 x10^3/uL (4.0-11.0) Red Blood Count 5.52 x10^6/uL (3.50-5.40) 5.28 x10^6/uL (3.50-5.40) 5.00 x10^6/uL (3.50-5.40) Hemoglobin 15.9 g/dL (12.0-15.5) 15.6 g/dL (12.0-15.5) 14.7 g/dL (12.0-15.5) Hematocrit 48.9 % (36.0-47.0) 46.6 % (36.0-47.0) 43.9 % (36.0-47.0) Mean Corpuscular Volume 89 fL (79-100) 88 fL (79-100) 88 fL (79-100) Mean Corpuscular Hemoglobin 29 pg (25-35) 30 pg (25-35) 29 pg (25-35) Mean Corpuscular Hemoglobin Concent 33 g/dL (31-37) 33 g/dL (31-37) 33 g/dL (31-37) Red Cell Distribution Width 13.8 % (11.5-14.5) 13.6 % (11.5-14.5) 13.6 % (11.5-14.5) Platelet Count 156 x10^3/uL (140-400) 157 x10^3/uL (140-400) 163 x10^3/uL (140-400) Neutrophils (%) (Auto) 74 % (31-73) 86 % (31-73) Lymphocytes (%) (Auto) 20 % (24-48) 10 % (24-48) Monocytes (%) (Auto) 5 % (0-9) 4 % (0-9) Eosinophils (%) (Auto) 0 % (0-3) 0 % (0-3) Basophils (%) (Auto) 1 % (0-3) 0 % (0-3) Neutrophils # (Auto) 2.1 x10^3uL (1.8-7.7) 4.3 x10^3uL (1.8-7.7) Lymphocytes # (Auto) 0.6 x10^3/uL (1.0-4.8) 0.5 x10^3/uL (1.0-4.8) Monocytes # (Auto) 0.1 x10^3/uL (0.0-1.1) 0.2 x10^3/uL (0.0-1.1) Eosinophils # (Auto) 0.0 x10^3/uL (0.0-0.7) 0.0 x10^3/uL (0.0-0.7) Basophils # (Auto) 0.0 x10^3/uL (0.0-0.2) 0.0 x10^3/uL (0.0-0.2) Sodium Level 139 mmol/L (136-145) 139 mmol/L (136-145) 136 mmol/L (136-145) Potassium Level 4.0 mmol/L (3.5-5.1) 3.9 mmol/L (3.5-5.1) 3.6 mmol/L (3.5-5.1) Chloride Level 102 mmol/L (98-107) 103 mmol/L (98-107) 100 mmol/L (98-107) Carbon Dioxide Level 29 mmol/L (21-32) 27 mmol/L (21-32) 27 mmol/L (21-32) Anion Gap 8 (6-14) 9 (6-14) 9 (6-14) Blood Urea Nitrogen 12 mg/dL (7-20) 13 mg/dL (7-20) 14 mg/dL (7-20) Creatinine 1.2 mg/dL (0.6-1.0) 1.1 mg/dL (0.6-1.0) 1.1 mg/dL (0.6-1.0) Estimated GFR (Cockcroft-Gault) 53.4 59.1 59.1 BUN/Creatinine Ratio 10 (6-20) 12 (6-20) Glucose Level 135 mg/dL (70-99) 143 mg/dL (70-99) 127 mg/dL (70-99) Calcium Level 10.3 mg/dL (8.5-10.1) 10.4 mg/dL (8.5-10.1) 10.1 mg/dL (8.5-10.1) Magnesium Level 1.9 mg/dL (1.8-2.4) 1.9 mg/dL (1.8-2.4) Total Bilirubin 0.5 mg/dL (0.2-1.0) 0.5 mg/dL (0.2-1.0) Aspartate Amino Transf (AST/SGOT) 21 U/L (15-37) 18 U/L (15-37) Alanine Aminotransferase (ALT/SGPT) 24 U/L (14-59) 21 U/L (14-59) Alkaline Phosphatase 80 U/L (46-116) 74 U/L (46-116) Total Protein 8.2 g/dL (6.4-8.2) 7.6 g/dL (6.4-8.2) Albumin 4.1 g/dL (3.4-5.0) 3.7 g/dL (3.4-5.0) Albumin/Globulin Ratio 1.0 (1.0-1.7) 0.9 (1.0-1.7) Lipase 62 U/L (73-393) Segmented Neutrophils % 85 % (35-66) Lymphocytes % 10 % (24-48) Monocytes % 5 % (0-10) Platelet Estimate Adequate (ADEQUATE) Prothrombin Time 30.2 SEC (11.7-14.0) Prothromb Time International Ratio 2.9 (0.8-1.1) Ionized Calcium 1.29 mmol/L (1.13-1.32) Phosphorus Level 2.8 mg/dL (2.6-4.7) Thyroid Stimulating Hormone (TSH) 1.137 uIU/mL (0.358-3.74) Test 08/21/18 10:10 Prothrombin Time 38.7 SEC (11.7-14.0) Prothromb Time International Ratio 4.0 (0.8-1.1) Laboratory Tests Test 08/21/18 03:25 08/21/18 10:10 White Blood Count 6.1 x10^3/uL (4.0-11.0) Red Blood Count 5.00 x10^6/uL (3.50-5.40) Hemoglobin 14.7 g/dL (12.0-15.5) Hematocrit 43.9 % (36.0-47.0) Mean Corpuscular Volume 88 fL (79-100) Mean Corpuscular Hemoglobin 29 pg (25-35) Mean Corpuscular Hemoglobin Concent 33 g/dL (31-37) Red Cell Distribution Width 13.6 % (11.5-14.5) Platelet Count 163 x10^3/uL (140-400) Sodium Level 136 mmol/L (136-145) Potassium Level 3.6 mmol/L (3.5-5.1) Chloride Level 100 mmol/L (98-107) Carbon Dioxide Level 27 mmol/L (21-32) Anion Gap 9 (6-14) Blood Urea Nitrogen 14 mg/dL (7-20) Creatinine 1.1 mg/dL (0.6-1.0) Estimated GFR (Cockcroft-Gault) 59.1 Glucose Level 127 mg/dL (70-99) Calcium Level 10.1 mg/dL (8.5-10.1) Phosphorus Level 2.8 mg/dL (2.6-4.7) Magnesium Level 1.9 mg/dL (1.8-2.4) Thyroid Stimulating Hormone (TSH) 1.137 uIU/mL (0.358-3.74) Prothrombin Time 38.7 SEC (11.7-14.0) Prothromb Time International Ratio 4.0 (0.8-1.1) Medications Current Medications Ondansetron HCl (Zofran) 4 mg 1X ONCE IM Last administered on 08/19/18at 13:58; Start 08/19/18 at 14:00; Stop 08/19/18 at 14:01; Status DC Sodium Chloride 1,000 ml @ 1,000 mls/hr 1X ONCE IV Last administered on 08/19/18at 14:42; Start 08/19/18 at 14:30; Stop 08/19/18 at 15:29; Status DC Ondansetron HCl (Zofran) 4 mg PRN Q8HRS PRN IV NAUSEA/VOMITING Last administered on 08/20/18at 12:59; Start 08/19/18 at 15:45; Stop 08/20/18 at 15:44; Status DC Morphine Sulfate (Morphine Sulfate) 2 mg PRN Q2HR PRN IV PAIN; Start 08/19/18 at 15:45; Stop 08/20/18 at 15:44; Status DC Hydralazine HCl (Apresoline Inj) 10 mg 1X ONCE IVP Last administered on 08/19/18at 17:25; Start 08/19/18 at 17:15; Stop 08/19/18 at 17:17; Status DC Metoclopramide HCl (Reglan Vial) 10 mg 1X ONCE IV Last administered on 08/19/18at 18:32; Start 08/19/18 at 18:15; Stop 08/19/18 at 18:16; Status DC Amlodipine Besylate (Norvasc) 5 mg 1X ONCE PO ; Start 08/19/18 at 19:30; Stop 08/19/18 at 19:31; Status DC Amlodipine Besylate (Norvasc) 5 mg DAILY PO Last administered on 08/21/18at 09:00; Start 08/20/18 at 09:00; Stop 08/21/18 at 10:05; Status DC Lisinopril (Prinivil) 20 mg DAILY PO Last administered on 08/20/18at 09:09; Start 08/20/18 at 09:00; Stop 08/20/18 at 10:45; Status DC Lisinopril (Prinivil) 20 mg 1X ONCE PO ; Start 08/19/18 at 19:30; Stop 08/19/18 at 19:31; Status DC Enoxaparin Sodium (Lovenox Per Pharmacy Prophylaxis Dosing) 1 each PRN DAILY PRN MC SEE COMMENTS; Start 08/19/18 at 20:15; Stop 08/20/18 at 11:44; Status DC Enoxaparin Sodium (Lovenox 40mg Syringe) 40 mg Q12H SQ Last administered on 08/19/18at 21:31; Start 08/19/18 at 21:00; Stop 08/20/18 at 11:44; Status DC Clonidine HCl (Catapres Tts-1) 1 patch WEEKLY TD Last administered on 08/19/18at 21:30; Start 08/19/18 at 21:00; Stop 08/20/18 at 11:33; Status DC Pantoprazole Sodium (PROTONIX VIAL for IV PUSH) 40 mg BIDAC IVP Last administered on 08/21/18at 07:41; Start 08/20/18 at 09:00 Carvedilol (Coreg) 12.5 mg BIDWMEALS PO Last administered on 08/21/18at 09:11; Start 08/20/18 at 10:30 Labetalol HCl (Normodyne Iv Push) 20 mg PRN Q2HR PRN IVP HYPERTENSION, 2ND CHOICE Last administered on 08/20/18at 14:18; Start 08/20/18 at 10:15 Aspirin (Ecotrin) 81 mg DAILY PO Last administered on 08/20/18 12:57; Start 08/20/18 at 11:00 Atorvastatin Calcium (Lipitor) 40 mg HS PO ; Start 08/20/18 at 21:00 Bupropion HCl (Wellbutrin Sr) 150 mg BID PO Last administered on 08/21/18at 09:00; Start 08/20/18 at 21:00 Vitamin D (Vitamin D3) 1,000 unit DAILY PO ; Start 08/20/18 at 11:00; Stop 08/20/18 at 12:53; Status DC Clonidine HCl (Catapres) 0.3 mg QHS PO ; Start 08/20/18 at 21:00; Stop 08/20/18 at 21:00; Status DC Docusate Sodium (Colace) 100 mg BID PO Last administered on 08/20/18at 12:57; Start 08/20/18 at 11:00 Lisinopril (Prinivil) 20 mg BID PO Last administered on 08/21/18at 09:01; Start 08/20/18 at 21:00 Oxycodone/ Acetaminophen (Percocet 10/325) 1 tab PRN Q6HRS PRN PO PAIN; Start 08/20/18 at 10:45 Hydrochlorothiazide (Hydrodiuril) 25 mg DAILY PO ; Start 08/20/18 at 11:00; Stop 08/20/18 at 12:53; Status DC Polyethylene Glycol (miraLAX PACKET) 17 gm DAILY PO ; Start 08/20/18 at 11:00 Spironolactone (Aldactone) 25 mg DAILY PO ; Start 08/20/18 at 12:00; Stop 08/20/18 at 12:53; Status DC Warfarin Sodium (Coumadin) 5 mg 1X WARF ONCE PO Last administered on 08/20/18at 18:51; Start 08/20/18 at 16:00; Stop 08/20/18 at 16:01; Status DC Potassium Chloride/Dextrose/ Sod Cl 1,000 ml @ 75 mls/hr [id number] IV Last administered on 08/21/18 01:59; Start 08/20/18 at 11:00 Warfarin Sodium (Coumadin Per Pharmacy) 1 each PRN DAILY PRN MC SEE COMMENTS Last administered on 08/21/18 10:35; Start 08/20/18 at 12:00 Clonidine HCl (Catapres Tts-2) 1 patch We TD Last administered on 08/20/18 13:56; Start 08/20/18 at 13:00 Ondansetron HCl (Zofran) 4 mg PRN Q8HRS PRN IV NAUSEA/VOMITING Last admi nistered on 08/21/18 09:04; Start 08/20/18 at 13:15 Hydralazine HCl (Apresoline Inj) 10 mg PRN Q2HRS PRN IVP ELEVATED BP, 1ST CHOICE Last administered on 08/21/18at 10:04; Start 08/20/18 at 18:15 Amlodipine Besylate (Norvasc) 5 mg DAILY PO ; Start 08/21/18 at 09:00; Status UNV Amlodipine Besylate (Norvasc) 10 mg DAILY PO ; Start 08/22/18 at 09:00 Amlodipine Besylate (Norvasc) 5 mg 1X ONCE PO ; Start 08/21/18 at 10:15; Stop 08/21/18 at 10:16; Status DC Warfarin Sodium (Coumadin - No Dose Today) 1 each 1X WARF ONCE MC ; Start 08/21/18 at 16:00; Stop 08/21/18 at 16:01 Active Scripts Active Reported Spironolactone 25 Mg Tablet 1 Tab PO BID PRN Warfarin Sodium 5 Mg Tablet 5 Mg PO DAILY Miralax (Polyethylene Glycol 3350) 17 Gm Powd.pack 1 Packet PO DAILY Percocet 10-325 Mg Tablet (Oxycodone/Acetaminophen) 1 Each Tablet 1 Tab PO PRN Q6HRS PRN Metoprolol Tartrate 50 Mg Tablet 1 Tab PO BID Metformin Hcl 500 Mg Tablet 500 Mg PO BIDWMEALS Lisinopril 20 Mg Tablet 1 Tab PO BID Hydrochlorothiazide Tablet (Hydrochlorothiazide) 12.5 Mg Tablet 25 Mg PO DAILY Docusate Sodium 100 Mg Capsule 1 Cap PO BID Clonidine Hcl 0.3 Mg Tablet 1 Tab PO QHS Vitamin D3 (Cholecalciferol (Vitamin D3)) 1,000 Unit Tablet 1 Tab PO DAILY [calcium] Wellbutrin Sr (Bupropion Hcl) 150 Mg Tablet.er 1 Tab PO BID Atorvastatin Calcium 40 Mg Tablet 40 Mg PO HS Aspir-Low (Aspirin) 81 Mg Tablet.dr 1 Tab PO DAILY Proventil Hfa Inhaler (Albuterol Sulfate) 6.7 Gm Hfa.aer.ad 2 Puff IH PRN Q4HRS PRN Vitals/I & O Vital Sign - Last 24 Hours 08/20/18 08/20/18 08/20/18 08/20/18 11:00 12:57 13:53 14:18 Temp 98.8 98.8 Pulse 89 89 80 77 B/P (MAP) 165/73 (103) 165/73 201/101 (134) 197/100 Pulse Ox 95 O2 Delivery Room Air Room Air 08/20/18 08/20/18 08/20/18 08/20/18 15:00 18:05 18:51 18:58 Temp 98.7 98.7 Pulse 71 73 73 Resp 16 18 B/P (MAP) 199/103 (135) 177/94 (121) 169/92 169/92 (117) Pulse Ox 94 O2 Delivery Room Air Room Air 08/20/18 08/20/18 08/20/18 08/20/18 19:30 20:04 20:05 23:00 Temp 97.6 97.6 Pulse 70 70 68 Resp 18 B/P (MAP) 198/94 198/94 148/85 (106) Pulse Ox 91 O2 Delivery Room Air Room Air 08/21/18 08/21/18 08/21/18 08/21/18 03:00 07:00 08:00 09:00 Temp 98.3 97.8 98.3 97.8 Pulse 67 66 66 Resp 18 16 B/P (MAP) 156/90 (112) 172/91 (118) 172/91 Pulse Ox 92 92 O2 Delivery Room Air Room Air Room Air 08/21/18 08/21/18 08/21/18 08/21/18 09:01 09:11 10:00 10:00 Pulse 66 66 72 68 B/P (MAP) 172/91 172/91 212/96 (134) 210/106 (140) 08/21/18 08/21/18 10:04 10:36 Temp 97.7 97.7 Pulse 68 66 Resp 16 B/P (MAP) 210/106 175/85 (115) Pulse Ox 95 O2 Delivery Room Air Intake and Output 08/20/18 08/20/18 08/21/18 15:00 23:00 07:00 Intake Total 0 ml 740 ml 1160 ml Balance 0 ml 740 ml 1160 ml GABO ROD MD Aug 21, 2018 10:55
[2018-08-21] MEDS ORDERED: PHYTONADIONE 10 MG/ML AMPUL. SQ ONE (11:00)
[2018-08-21] MEDS ORDERED: fentaNYL PF VIAL 100 MCG/2 ML VIAL IV PRN (11:00)
[2018-08-21] MEDS ORDERED: PROCHLORPERAZINE 10 MG/2 ML VIAL. IV PRN (11:00)
[2018-08-21] MEDS ORDERED: LIDO:MAALOX 1:1 20 ML SINGLE DOSE. PO PRN (11:00)
--- NOTE | 2018-08-21 11:23 | PDOC ---
Renal-Progress Notes Subjective Notes Notes NOTHING NEW History of Present Illness Hx of present illness STABLE Vitals Vitals Vital Signs Date Time Temp Pulse Resp B/P (MAP) Pulse Ox O2 Delivery O2 Flow Rate FiO2 08/21/18 11:19 71 148/73 08/21/18 10:36 97.7 16 95 Room Air 97.7 Weight Weight [ ] I.O. Intake and Output Intake and Output 08/21/18 07:00 Intake Total 1900 ml Balance 1900 ml Intake Oral 1140 ml IV Total 760 ml # Voids 3 Labs Labs Laboratory Tests Test 08/21/18 03:25 08/21/18 10:10 White Blood Count 6.1 x10^3/uL (4.0-11.0) Red Blood Count 5.00 x10^6/uL (3.50-5.40) Hemoglobin 14.7 g/dL (12.0-15.5) Hematocrit 43.9 % (36.0-47.0) Mean Corpuscular Volume 88 fL (79-100) Mean Corpuscular Hemoglobin 29 pg (25-35) Mean Corpuscular Hemoglobin Concent 33 g/dL (31-37) Red Cell Distribution Width 13.6 % (11.5-14.5) Platelet Count 163 x10^3/uL (140-400) Sodium Level 136 mmol/L (136-145) Potassium Level 3.6 mmol/L (3.5-5.1) Chloride Level 100 mmol/L (98-107) Carbon Dioxide Level 27 mmol/L (21-32) Anion Gap 9 (6-14) Blood Urea Nitrogen 14 mg/dL (7-20) Creatinine 1.1 mg/dL (0.6-1.0) Estimated GFR (Cockcroft-Gault) 59.1 Glucose Level 127 mg/dL (70-99) Calcium Level 10.1 mg/dL (8.5-10.1) Phosphorus Level 2.8 mg/dL (2.6-4.7) Magnesium Level 1.9 mg/dL (1.8-2.4) Thyroid Stimulating Hormone (TSH) 1.137 uIU/mL (0.358-3.74) Prothrombin Time 38.7 SEC (11.7-14.0) Prothromb Time International Ratio 4.0 (0.8-1.1) Review of Systems Constitutional: yes: other (CONFUSED) Physical Exam General Appearance: no apparent distress Skin: warm Respiratory: decreased breath sounds Heart: S1S2 Abdomen: soft, bowel sounds present Genitourinary: bladder flat Extremities: pulses present Neurology: alert Musculoskeletal: Osteoarthritis Assessment Assessment IMP DEHYDRATION CORINNE - IMPROVED MILD HYPERCALCEMIA-VIT D AND OR DIURETIC RELATED-BETTER N/V/D-?GASTROENTERITIS OBESITY [id number] TO TAKE PO-IMPROVING RIGHT FLANK AREA LIPOMATOUS MASS-NO CHANGE SINCE 2009 PLAN HYDRATION STOP HER DIURETICS AND VIT D GI EVALUATION CATAPRES PATCH FOR NOW HOLD METFORMIN AND ALDACTONE WILL FOLLOW EMBER BACK MD Aug 21, 2018 11:23
--- NOTE | 2018-08-21 15:27 | NUR ---
SS following for discharge planning. SS reviewed pt chart. Pt is from home and is currently on room air. No discharge needs noted at this time. SS will continue to follow for pending discharge needs.
[2018-08-21] MEDS: ONDANSETRON PF 4 MG/2 ML VIAL. IV PRN (15:40)
--- NOTE | 2018-08-21 15:42 | NUR ---
Hydralazine per prn for BP elevation now 158/85 pulse 75. Patient with poor toleration sips clear liquids, zofran per prn. Continue cares and monitor.
[2018-08-21] MEDS: ATORVASTATIN CALCIUM 40 MG TABLET. PO SCH (21:08)
[2018-08-22 02:39] VITALS: BP 150/82
[2018-08-22] MEDS: POTASSIUM CL 20MEQ D5-0.45NACL 1,000 ML IV SCH ×2 (03:43→20:12)
[2018-08-22 05:53] LABS: HEMATOCRIT 44.9 % (36.0-47.0); HEMOGLOBIN 15.1 g/dL (12.0-15.5); RED BLOOD COUNT 5.08 x10^6/uL (3.50-5.40); RED CELL DISTRIBUTION WIDTH 13.5 % (11.5-14.5); WHITE BLOOD COUNT 4.6 x10^3/uL (4.0-11.0)
[2018-08-22] MEDS: ONDANSETRON PF 4 MG/2 ML VIAL. IV PRN (05:57)
[2018-08-22 06:02] LABS: CREATININE 1.2 mg/dL (0.6-1.0); GFR 53.4; POTASSIUM 3.8 mmol/L (3.5-5.1)
[2018-08-22 06:23] LABS: PROTHROMBIN TIME PATIENT 34.8 SEC (11.7-14.0)
[2018-08-22 07:00] VITALS: BP 206/114
[2018-08-22] MEDS: hydrALAZINE 20 MG/ML VIAL. IVP PRN ×3 (07:42→15:45)
[2018-08-22] MEDS: LISINOPRIL 20 MG TABLET PO SCH ×2 (08:52→20:51)
[2018-08-22] MEDS: CARVEDILOL 12.5 MG TABLET. PO SCH ×2 (08:52→20:51)
[2018-08-22] MEDS: PANTOPRAZOLE IV PUSH 40 MG VIAL. IVP SCH ×2 (08:53→15:45)
[2018-08-22] MEDS: ASPIRIN ENTERIC COATED 81 MG TABLET.DR. PO SCH (08:53)
[2018-08-22] MEDS: amLODIPine BESYLATE 5 MG TABLET PO SCH (08:53)
[2018-08-22] MEDS: buPROPion SR 150 MG TABLET.SA PO SCH ×2 (08:53→20:51)
[2018-08-22] MEDS: DOCUSATE SODIUM 100 MG CAPSULE. PO SCH ×2 (08:54→20:50)
[2018-08-22] MEDS: POLYETHYLENE GLYCOL 3350 17 GM PACKET. PO SCH ×3 (08:54→20:52)
--- NOTE | 2018-08-22 10:41 | PDOC ---
PROGRESS NOTES Chief Complaint Chief Complaint 1. Abdominal pain/n/v,some hematemesis - GI following 2. Accelerated HTN: likely due inability to take her PO meds in the last 3 days plus her GI symptoms. Remains labile 3. HLP 4. Hx of CVA 5. 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 CORINNE 7. Obesity BMI 42 8. Supra Therapeutic INR with mild hematemesis 9. HYpokalemia sec to emesis and poor po History of Present Illness History of Present Illness cont to have emesis Bucket at bedside and looks weak K 3.6 despite days of running K containing IVF US and CT scan abdomen and pelvis are unremarkable INR 3.5, no reports of hematemesis this time, status post vitamin K 08/21/18 Plan: check gastric emptying test-she IS a diabetic Keep liquid diet for now cont to hold warfarin INR check and BMP again tomorrow I would continue K containing IVF as K is still low and she not eating Vitals Vitals Vital Signs Date Time Temp Pulse Resp B/P (MAP) Pulse Ox O2 Delivery O2 Flow Rate FiO2 08/22/18 08:53 73 162/83 08/22/18 07:56 Room Air 08/22/18 07:00 98.3 20 95 98.3 Physical Exam General: Alert, Oriented X3, Cooperative, No acute distress Heart: Regular rate (Sr no ectopies), Normal S1, Normal S2, No murmurs Abdomen: Soft, No tenderness Extremities: No cyanosis, No edema Skin: No breakdown, No significant lesion Labs LABS Laboratory Tests Test 08/22/18 05:15 White Blood Count 4.6 x10^3/uL (4.0-11.0) Red Blood Count 5.08 x10^6/uL (3.50-5.40) Hemoglobin 15.1 g/dL (12.0-15.5) Hematocrit 44.9 % (36.0-47.0) Mean Corpuscular Volume 88 fL (79-100) Mean Corpuscular Hemoglobin 30 pg (25-35) Mean Corpuscular Hemoglobin Concent 34 g/dL (31-37) Red Cell Distribution Width 13.5 % (11.5-14.5) Platelet Count 147 x10^3/uL (140-400) Prothrombin Time 34.8 SEC (11.7-14.0) Prothromb Time International Ratio 3.5 (0.8-1.1) Sodium Level 135 mmol/L (136-145) Potassium Level 3.8 mmol/L (3.5-5.1) Chloride Level 101 mmol/L (98-107) Carbon Dioxide Level 28 mmol/L (21-32) Anion Gap 6 (6-14) Blood Urea Nitrogen 13 mg/dL (7-20) Creatinine 1.2 mg/dL (0.6-1.0) Estimated GFR (Cockcroft-Gault) 53.4 Glucose Level 119 mg/dL (70-99) Calcium Level 10.0 mg/dL (8.5-10.1) Review of Systems Review of Systems Nausea, emesis, weak, the rest of ROS 14 point negative Assessment and Plan Assessmemt and Plan Problems Medical Problems: (1) Diarrhea Status: Acute (2) Elevated serum creatinine Status: Acute (3) Hypertension Status: Acute (4) Vomiting Status: Acute Comment Review of Relevant I have reviewed the following items grady (where applicable) has been applied. Labs Laboratory Tests Test 08/21/18 03:25 08/21/18 10:10 08/22/18 05:15 White Blood Count 6.1 x10^3/uL (4.0-11.0) 4.6 x10^3/uL (4.0-11.0) Red Blood Count 5.00 x10^6/uL (3.50-5.40) 5.08 x10^6/uL (3.50-5.40) Hemoglobin 14.7 g/dL (12.0-15.5) 15.1 g/dL (12.0-15.5) Hematocrit 43.9 % (36.0-47.0) 44.9 % (36.0-47.0) Mean Corpuscular Volume 88 fL (79-100) 88 fL (79-100) Mean Corpuscular Hemoglobin 29 pg (25-35) 30 pg (25-35) Mean Corpuscular Hemoglobin Concent 33 g/dL (31-37) 34 g/dL (31-37) Red Cell Distribution Width 13.6 % (11.5-14.5) 13.5 % (11.5-14.5) Platelet Count 163 x10^3/uL (140-400) 147 x10^3/uL (140-400) Sodium Level 136 mmol/L (136-145) 135 mmol/L (136-145) Potassium Level 3.6 mmol/L (3.5-5.1) 3.8 mmol/L (3.5-5.1) Chloride Level 100 mmol/L (98-107) 101 mmol/L (98-107) Carbon Dioxide Level 27 mmol/L (21-32) 28 mmol/L (21-32) Anion Gap 9 (6-14) 6 (6-14) Blood Urea Nitrogen 14 mg/dL (7-20) 13 mg/dL (7-20) Creatinine 1.1 mg/dL (0.6-1.0) 1.2 mg/dL (0.6-1.0) Estimated GFR (Cockcroft-Gault) 59.1 53.4 Glucose Level 127 mg/dL (70-99) 119 mg/dL (70-99) Calcium Level 10.1 mg/dL (8.5-10.1) 10.0 mg/dL (8.5-10.1) Phosphorus Level 2.8 mg/dL (2.6-4.7) Magnesium Level 1.9 mg/dL (1.8-2.4) Thyroid Stimulating Hormone (TSH) 1.137 uIU/mL (0.358-3.74) Prothrombin Time 38.7 SEC (11.7-14.0) 34.8 SEC (11.7-14.0) Prothromb Time International Ratio 4.0 (0.8-1.1) 3.5 (0.8-1.1) Laboratory Tests Test 08/22/18 05:15 White Blood Count 4.6 x10^3/uL (4.0-11.0) Red Blood Count 5.08 x10^6/uL (3.50-5.40) Hemoglobin 15.1 g/dL (12.0-15.5) Hematocrit 44.9 % (36.0-47.0) Mean Corpuscular Volume 88 fL (79-100) Mean Corpuscular Hemoglobin 30 pg (25-35) Mean Corpuscular Hemoglobin Concent 34 g/dL (31-37) Red Cell Distribution Width 13.5 % (11.5-14.5) Platelet Count 147 x10^3/uL (140-400) Prothrombin Time 34.8 SEC (11.7-14.0) Prothromb Time International Ratio 3.5 (0.8-1.1) Sodium Level 135 mmol/L (136-145) Potassium Level 3.8 mmol/L (3.5-5.1) Chloride Level 101 mmol/L (98-107) Carbon Dioxide Level 28 mmol/L (21-32) Anion Gap 6 (6-14) Blood Urea Nitrogen 13 mg/dL (7-20) Creatinine 1.2 mg/dL (0.6-1.0) Estimated GFR (Cockcroft-Gault) 53.4 Glucose Level 119 mg/dL (70-99) Calcium Level 10.0 mg/dL (8.5-10.1) Medications Current Medications Ondansetron HCl (Zofran) 4 mg 1X ONCE IM Last administered on 08/19/18at 13:58; Start 08/19/18 at 14:00; Stop 08/19/18 at 14:01; Status DC Sodium Chloride 1,000 ml @ 1,000 mls/hr 1X ONCE IV Last administered on 08/19/18at 14:42; Start 08/19/18 at 14:30; Stop 08/19/18 at 15:29; Status DC Ondansetron HCl (Zofran) 4 mg PRN Q8HRS PRN IV NAUSEA/VOMITING Last administered on 08/20/18at 12:59; Start 08/19/18 at 15:45; Stop 08/20/18 at 15:44; Status DC Morphine Sulfate (Morphine Sulfate) 2 mg PRN Q2HR PRN IV PAIN; Start 08/19/18 at 15:45; Stop 08/20/18 at 15:44; Status DC Hydralazine HCl (Apresoline Inj) 10 mg 1X ONCE IVP Last administered on 08/19/18at 17:25; Start 08/19/18 at 17:15; Stop 08/19/18 at 17:17; Status DC Metoclopramide HCl (Reglan Vial) 10 mg 1X ONCE IV Last administered on 08/19/18at 18:32; Start 08/19/18 at 18:15; Stop 08/19/18 at 18:16; Status DC Amlodipine Besylate (Norvasc) 5 mg 1X ONCE PO ; Start 08/19/18 at 19:30; Stop 08/19/18 at 19:31; Status DC Amlodipine Besylate (Norvasc) 5 mg DAILY PO Last administered on 08/21/18 09:00; Start 08/20/18 at 09:00; Stop 08/21/18 at 10:05; Status DC Lisinopril (Prinivil) 20 mg DAILY PO Last administered on 08/20/18 09:09; Start 08/20/18 at 09:00; Stop 08/20/18 at 10:45; Status DC Lisinopril (Prinivil) 20 mg 1X ONCE PO ; Start 08/19/18 at 19:30; Stop 08/19/18 at 19:31; Status DC Enoxaparin Sodium (Lovenox Per Pharmacy Prophylaxis Dosing) 1 each PRN DAILY PRN MC SEE COMMENTS; Start 08/19/18 at 20:15; Stop 08/20/18 at 11:44; Status DC Enoxaparin Sodium (Lovenox 40mg Syringe) 40 mg Q12H SQ Last administered on 08/19/18 21:31; Start 08/19/18 at 21:00; Stop 08/20/18 at 11:44; Status DC Clonidine HCl (Catapres Tts-1) 1 patch WEEKLY TD Last administered on 08/19/18 21:30; Start 08/19/18 at 21:00; Stop 08/20/18 at 11:33; Status DC Pantoprazole Sodium (PROTONIX VIAL for IV PUSH) 40 mg BIDAC IVP Last administered on 08/22/18 08:53; Start 08/20/18 at 09:00 Carvedilol (Coreg) 12.5 mg BIDWMEALS PO Last administered on 08/22/18 08:52; Start 08/20/18 at 10:30 Labetalol HCl (Normodyne Iv Push) 20 mg PRN Q2HR PRN IVP HYPERTENSION, 2ND CHOICE Last administered on 08/20/18 14:18; Start 08/20/18 at 10:15 Aspirin (Ecotrin) 81 mg DAILY PO Last administered on 08/22/18 08:53; Start 08/20/18 at 11:00 Atorvastatin Calcium (Lipitor) 40 mg HS PO Last administered on 4/25/19at 21:08; Start 08/20/18 at 21:00 Bupropion HCl (Wellbutrin Sr) 150 mg BID PO Last administered on 08/22/18at 08:53; Start 08/20/18 at 21:00 Vitamin D (Vitamin D3) 1,000 unit DAILY PO ; Start 08/20/18 at 11:00; Stop 08/20 at 12:53; Status DC Clonidine HCl (Catapres) 0.3 mg QHS PO ; Start 08/20/18 at 21:00; Stop 08/20/18 at 21:00; Status DC Docusate Sodium (Colace) 100 mg BID PO Last administered on 08/22/18at 08:54; Start 08/20/18 at 11:00 Lisinopril (Prinivil) 20 mg BID PO Last administered on 08/22/18at 08:52; Start 08/20/18 at 21:00 Oxycodone/ Acetaminophen (Percocet 10/325) 1 tab PRN Q6HRS PRN PO PAIN; Start 08/20/18 at 10:45 Hydrochlorothiazide (Hydrodiuril) 25 mg DAILY PO ; Start 08/20/18 at 11:00; Stop 08/20/18 at 12:53; Status DC Polyethylene Glycol (miraLAX PACKET) 17 gm DAILY PO ; Start 08/20/18 at 11:00; Stop 08/21/18 at 15:29; Status DC Spironolactone (Aldactone) 25 mg DAILY PO ; Start 08/20/18 at 12:00; Stop 08/20/18 at 12:53; Status DC Warfarin Sodium (Coumadin) 5 mg 1X WARF ONCE PO Last administered on 08/20/18at 18:51; Start 08/20/18 at 16:00; Stop 08/20/18 at 16:01; Status DC Potassium Chloride/Dextrose/ Sod Cl 1,000 ml @ 75 mls/hr [id number] IV Last administered on 08/22/18at 03:43; Start 08/20/18 at 11:00 Warfarin Sodium (Coumadin Per Pharmacy) 1 each PRN DAILY PRN MC SEE COMMENTS Last administered on 08/21/18at 10:35; Start 08/20/18 at 12:00; Stop 08/21/18 at 10:57; Status DC Clonidine HCl (Catapres Tts-2) 1 patch We TD Last administered on 08/20/18at 13:56; Start 08/20/18 at 13:00 Ondansetron HCl (Zofran) 4 mg PRN Q8HRS PRN IV NAUSEA/VOMITING Last administered on 08/21/18at 09:04; Start 08/20/18 at 13:15; Stop 08/21/18 at 11:00; Status DC Hydralazine HCl (Apresoline Inj) 10 mg PRN Q2HRS PRN IVP ELEVATED BP, 1ST CHOICE Last administered on 08/22/18at 07:42; Start 08/20/18 at 18:15 Amlodipine Besylate (Norvasc) 5 mg DAILY PO ; Start 08/21/18 at 09:00; Status UNV Amlodipine Besylate (Norvasc) 10 mg DAILY PO Last administered on 08/22/18at 08:53; Start 08/22/18 at 09:00 Amlodipine Besylate (Norvasc) 5 mg 1X ONCE PO Last administered on 08/21/18at 11:19; Start 08/21/18 at 10:15; Stop 08/21/18 at 10:16; Status DC Warfarin Sodium (Coumadin - No Dose Today) 1 each 1X WARF ONCE MC ; Start 08/21/18 at 16:00; Stop 08/21/18 at 16:01; Status DC Phytonadione (Vitamin K Ampule) 5 mg 1X ONCE SQ Last administered on 08/21/18at 11:19; Start 08/21/18 at 11:00; Stop 08/21/18 at 11:07; Status DC Ondansetron HCl (Zofran) 4 mg PRN Q6HRS PRN IV NAUSEA/VOMITING, 1ST CHOICE Last administered on 08/22/18at 05:57; Start 08/21/18 at 11:00 Prochlorperazine Edisylate (Compazine) 10 mg PRN Q6HRS PRN IV NAUSEA/VOMITING, 2ND CHOICE Last administered on 08/22/18at 07:41; Start 08/21/18 at 11:00 Fentanyl Citrate (Fentanyl 2ml Vial) 50 mcg PRN Q2HR PRN IV SEVERE PAIN; Start 08/21/18 at 11:00 Multi-Ingredient Mouthwash/Gargle (Gi Cocktail) 20 ml PRN QID PRN PO CHEST PAIN; Start 08/21/18 at 11:00 Polyethylene Glycol (miraLAX PACKET) 17 gm BID PO Last administered on 08/22/18at 08:54; Start 08/21/18 at 21:00 Active Scripts Active Reported Spironolactone 25 Mg Tablet 1 Tab PO BID PRN Warfarin Sodium 5 Mg Tablet 5 Mg PO DAILY Miralax (Polyethylene Glycol 3350) 17 Gm Powd.pack 1 Packet PO DAILY Percocet 10-325 Mg Tablet (Oxycodone/Acetaminophen) 1 Each Tablet 1 Tab PO PRN Q6HRS PRN Metoprolol Tartrate 50 Mg Tablet 1 Tab PO BID Metformin Hcl 500 Mg Tablet 500 Mg PO BIDWMEALS Lisinopril 20 Mg Tablet 1 Tab PO BID Hydrochlorothiazide Tablet (Hydrochlorothiazide) 12.5 Mg Tablet 25 Mg PO DAILY Docusate Sodium 100 Mg Capsule 1 Cap PO BID Clonidine Hcl 0.3 Mg Tablet 1 Tab PO QHS Vitamin D3 (Cholecalciferol (Vitamin D3)) 1,000 Unit Tablet 1 Tab PO DAILY [calcium] Wellbutrin Sr (Bupropion Hcl) 150 Mg Tablet.er 1 Tab PO BID Atorvastatin Calcium 40 Mg Tablet 40 Mg PO HS Aspir-Low (Aspirin) 81 Mg Tablet.dr 1 Tab PO DAILY Proventil Hfa Inhaler (Albuterol Sulfate) 6.7 Gm Hfa.aer.ad 2 Puff IH PRN Q4HRS PRN Vitals/I & O Vital Sign - Last 24 Hours 08/21/18 08/21/18 08/21/18 08/21/18 11:19 15:00 15:11 16:31 Temp 98.0 98.0 Pulse 71 68 69 72 Resp 16 B/P (MAP) 148/73 158/85 (109) 181/94 131/76 Pulse Ox 96 O2 Delivery Room Air 08/21/18 08/21/18 08/21/18 08/21/18 19:22 19:35 21:08 23:23 Temp 98.8 98.7 98.8 98.7 Pulse 70 70 68 Resp 16 18 B/P (MAP) 129/71 (90) 129/71 155/79 (104) Pulse Ox 95 96 O2 Delivery Room Air Room Air Room Air 4/26/08/22/18 08/22/18 08/22/18 02:39 07:00 07:42 07:56 Temp 98.5 98.3 98.5 98.3 Pulse 67 71 65 Resp 18 20 B/P (MAP) 150/82 (104) 206/114 (144) 197/112 Pulse Ox 95 95 O2 Delivery Room Air Room Air Room Air 08/22/18 08/22/18 08/22/18 08:52 08:52 08:53 Pulse 73 73 73 B/P (MAP) 162/83 162/83 162/83 Intake and Output 08/21/18 08/21/18 08/22/18 15:00 23:00 07:00 Intake Total 1000 ml 170 ml 1000 ml Output Total 300 ml Balance 700 ml 170 ml 1000 ml GABO ROD MD Aug 22, 2018 10:41
[2018-08-22 11:00] VITALS: BP 184/89
--- NOTE | 2018-08-22 11:06 | PDOC ---
Renal-Progress Notes Subjective Notes Notes NONE History of Present Illness Hx of present illness STABLE Vitals Vitals Vital Signs Date Time Temp Pulse Resp B/P (MAP) Pulse Ox O2 Delivery O2 Flow Rate FiO2 08/22/18 08:53 73 162/83 08/22/18 07:56 Room Air 08/22/18 07:00 98.3 20 95 98.3 Weight Weight [ ] I.O. Intake and Output Intake and Output 08/22/18 07:00 Intake Total 2170 ml Output Total 300 ml Balance 1870 ml Intake Oral 270 ml IV Total 1900 ml Output Urine Total 300 ml # Voids 4 Labs Labs Laboratory Tests Test 08/22/18 05:15 White Blood Count 4.6 x10^3/uL (4.0-11.0) Red Blood Count 5.08 x10^6/uL (3.50-5.40) Hemoglobin 15.1 g/dL (12.0-15.5) Hematocrit 44.9 % (36.0-47.0) Mean Corpuscular Volume 88 fL (79-100) Mean Corpuscular Hemoglobin 30 pg (25-35) Mean Corpuscular Hemoglobin Concent 34 g/dL (31-37) Red Cell Distribution Width 13.5 % (11.5-14.5) Platelet Count 147 x10^3/uL (140-400) Prothrombin Time 34.8 SEC (11.7-14.0) Prothromb Time International Ratio 3.5 (0.8-1.1) Sodium Level 135 mmol/L (136-145) Potassium Level 3.8 mmol/L (3.5-5.1) Chloride Level 101 mmol/L (98-107) Carbon Dioxide Level 28 mmol/L (21-32) Anion Gap 6 (6-14) Blood Urea Nitrogen 13 mg/dL (7-20) Creatinine 1.2 mg/dL (0.6-1.0) Estimated GFR (Cockcroft-Gault) 53.4 Glucose Level 119 mg/dL (70-99) Calcium Level 10.0 mg/dL (8.5-10.1) Review of Systems Constitutional: yes: other (CONFUSED) Physical Exam General Appearance: no apparent distress Skin: warm Respiratory: decreased breath sounds Heart: S1S2 Abdomen: soft, bowel sounds present Genitourinary: bladder flat Extremities: pulses present Neurology: alert Musculoskeletal: Osteoarthritis Assessment Assessment IMP DEHYDRATION CORINNE - RESOLVED MILD HYPERCALCEMIA-VIT D AND OR DIURETIC RELATED-BETTER N/V/D-?GASTROENTERITIS OBESITY [id number] TO TAKE PO-IMPROVING RIGHT FLANK AREA LIPOMATOUS MASS-NO CHANGE SINCE 2009 PLAN DOING WELL FROM RENAL STANDPOINT WILL SIGN OFF PLEASE CALL IF NEEDED EMBER BACK MD Aug 22, 2018 11:06
--- NOTE | 2018-08-22 11:30 | PDOC ---
Subjective: Subjective: Granddaughter here from [place] - concerned w/ not much progress after "day 5" in the hospital, concerned she's not acting like herself (says she's "vibrant and with her girlfriends"), concerned with HTN. GES still in process; however, had tray of clears delivered and granddaughter gave her a couple sips of liquids - she says there was a miscommunication. Wants to know exactly what has been done from a GI perspective, wants to know all lab results, and wonders why we haven't checked for "bacteria in the gut." She does say that the patient told her she was feeling a little better. Objective: Objective: D/w RN - primary ordered GES, just left for that. No vomiting, not sure if she ate yesterday, still has nausea. Vital Signs: Vital Signs Date Time Temp Pulse Resp B/P (MAP) Pulse Ox O2 Delivery O2 Flow Rate FiO2 08/22/18 08:53 73 162/83 08/22/18 07:56 Room Air 08/22/18 07:00 98.3 20 95 98.3 Labs: Laboratory Tests Test 08/22/18 05:15 White Blood Count 4.6 x10^3/uL Red Blood Count 5.08 x10^6/uL Hemoglobin 15.1 g/dL Hematocrit 44.9 % Mean Corpuscular Volume 88 fL Mean Corpuscular Hemoglobin 30 pg Mean Corpuscular Hemoglobin Concent 34 g/dL Red Cell Distribution Width 13.5 % Platelet Count 147 x10^3/uL Prothrombin Time 34.8 SEC Prothromb Time International Ratio 3.5 Sodium Level 135 mmol/L Potassium Level 3.8 mmol/L Chloride Level 101 mmol/L Carbon Dioxide Level 28 mmol/L Anion Gap 6 Blood Urea Nitrogen 13 mg/dL Creatinine 1.2 mg/dL Estimated GFR (Cockcroft-Gault) 53.4 Glucose Level 119 mg/dL Calcium Level 10.0 mg/dL PE: GEN: up to chair, speaks quietly, drowsy LUNGS: room air HEART: RRR ABD: NABS, S/ND/NT PSYCH: A&O - ?more talkative today A/P: Nausea, weakness, AMS, HTN -- Attempted to answer all granddaughter's questions to her satisfaction. Will review granddaughter's concerns w/ Dr. Yeung and follow-up on GES results. Continue PPI and Miralax for now, advance diet as tolerated (ordered yesterday). Try suppository. ?image head - defer this to primary. PEDRO JONES Aug 22, 2018 11:30
[2018-08-22] MEDS ORDERED: CARVEDILOL 12.5 MG TABLET. PO ONE (12:45)
[2018-08-22] MEDS ORDERED: BISACODYL 10 MG SUPP.RECT. PR ONE (15:00)
[2018-08-22 15:54] VITALS: BP 164/89
--- NOTE | 2018-08-22 16:35 | RAD ---
Gastric Emptying Study: Clinical History: 3 days of nausea and vomiting 2.1 mCi of technetium 99m sulfur colloid was administered in an egg meal and spot scanning was performed on a gamma camera for 4 hours for a 4 hour gastric emptying protocol. Activity at 1 hour is 100%, normal is 35 to 91%. Activity at 2 hours is 95%, normal is 2.7% to 60%. Activity at 3 hours is 57%, normal is 0.5% to 28%. At 4 hours activity is 54%, normal is 0 to 10%. Impression: Delayed gastric emptying. Electronically signed by: Joseph Vogt III, MD (08/22/2018 4:32 PM) [facility]
--- NOTE | 2018-08-22 16:49 | EKG ---
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 Electronically Signed On 08-22-2018 17:00:27 CDT by Lyubov Maravilla MD
--- NOTE | 2018-08-22 17:13 | PDOC ---
CARDIOLOGY PROGRESS NOTE SUBJECTIVE: No acute events over night. She remains fairly ill with significant nausea. She is fatigued and with poor p.o intake. Had GES today which was highly abnormal. OBJECTIVE: Vital SIgns: Vital Signs Date Time Temp Pulse Resp B/P (MAP) Pulse Ox O2 Delivery O2 Flow Rate FiO2 08/22/18 15:54 97.5 75 16 164/89 (114) 95 Room Air 97.5 Vital signs are labile but she remains hypertensives. I & O Intake and Output 08/22/18 07:00 Intake Total 2170 ml Output Total 300 ml Balance 1870 ml Intake Oral 270 ml IV Total 1900 ml Output Urine Total 300 ml # Voids 4 Objective: Fatigued. Alert to place and time and person. Normal heart tones. No significant m/r. No significant edema Obese protrubent abdomen - soft, no rebound with mild palpation. Clear lungs anteriorly. CURRENT MEDICATIONS: Pertinent CV meds: coreg, amlodipine, lisinopril, atorvastatin and asa. DIAGNOSTIC TESTING: EKG - SR with rare PVC's Echo with normal LV function. GES - severely abnormal. Labs reviewed: Hgb, plts, cr, K, LFT's, TSH grossly wnl. ASSESSMENT: 1. Labile BP's - likely reactive due to severe gastroparesis, ? absorption of meds with intermittent emesis. 2. Prior DVT/P.E. - Off anticoagulation due to elevated INR. 3. Hx of CVA PLAN: 1. Continue oral meds if tolerated, otherwise continue labetalol and hydralazine IV 2. Continue anticoagulation when more stable. 3. Defer further w/u and treatment of gastroparesis to GI/PCP teams. 4. Suspect BP will improve when her nausea/vomiting/GI discomfort improves with regular administration of meds No further CV w/u. Pls call with questions. Thanks. LYUBOV MARAVILLA MD Aug 22, 2018 17:13
[2018-08-22 19:00] VITALS: BP 155/92
[2018-08-22] MEDS: ATORVASTATIN CALCIUM 40 MG TABLET. PO SCH (20:51)
[2018-08-22] MEDS: IPRATRPIUM/ALBUTEROL 0.5/2.5MG 3 ML NEBU. NEB SCH (21:10)
[2018-08-22 23:54] VITALS: BP 128/69
[2018-08-23 03:41] LABS: PROTHROMBIN TIME PATIENT 22.9 SEC (11.7-14.0)
[2018-08-23 03:46] LABS: CALCIUM 9.7 mg/dL (8.5-10.1); CREATININE 1.2 mg/dL (0.6-1.0); GFR 53.4; POTASSIUM 3.9 mmol/L (3.5-5.1)
[2018-08-23 03:50] VITALS: BP 160/75
[2018-08-23 07:00] VITALS: BP 174/80
[2018-08-23] MEDS: buPROPion SR 150 MG TABLET.SA PO SCH ×2 (08:09→20:41)
[2018-08-23] MEDS: ASPIRIN ENTERIC COATED 81 MG TABLET.DR. PO SCH (08:09)
[2018-08-23] MEDS: PANTOPRAZOLE IV PUSH 40 MG VIAL. IVP SCH (08:09)
[2018-08-23] MEDS: LISINOPRIL 20 MG TABLET PO SCH ×2 (08:10→20:42)
[2018-08-23] MEDS: amLODIPine BESYLATE 5 MG TABLET PO SCH (08:12)
[2018-08-23] MEDS: CARVEDILOL 12.5 MG TABLET. PO SCH ×2 (08:13→16:46)
[2018-08-23] MEDS: POTASSIUM CL 20MEQ D5-0.45NACL 1,000 ML IV SCH ×2 (08:26→19:00)
[2018-08-23] MEDS: IPRATRPIUM/ALBUTEROL 0.5/2.5MG 3 ML NEBU. NEB SCH ×4 (08:37→18:27)
[2018-08-23] MEDS: POLYETHYLENE GLYCOL 3350 17 GM PACKET. PO SCH ×2 (09:00→20:43)
[2018-08-23] MEDS: DOCUSATE SODIUM 100 MG CAPSULE. PO SCH ×2 (09:00→20:43)
--- NOTE | 2018-08-23 10:04 | PDOC ---
PROGRESS NOTES Chief Complaint Chief Complaint 1. GASTROPARESIS - NEW Dx - DELAYED GET - 08/22/18 2. Abdominal pain/n/v,some hematemesis - the latter resolved 3. LONG standing DM 4. Accelerated HTN: likely sec to constant retching 5. HLP 6. Hx of CVA 7. 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 CORINNE 9. Obesity BMI 42 10. Supra Therapeutic INR with mild hematemesis 11. HYpokalemia sec to emesis and poor po History of Present Illness History of Present Illness This Is the first day she looks better. BP also better today Gastric emptying is delayed I have discussed with her and provided her a copy I did educate her about small frequent meals instead of 3 big meals Educated her about not having dinner close to bedtime Educated her about remaining upright maybe for 2 hours after a meal INR 2.1-warfarin has been on hold because of supratherapeutic INR and hematemesis rather mild Plan Resume warfarin with target goal [id number] per pharmacy Start Reglan scheduled Add Compazine or Phenergan or antinausea meds when necessary PT OT today-has not ambulated since admission because of constant emesis Vitals Vitals Vital Signs Date Time Temp Pulse Resp B/P (MAP) Pulse Ox O2 Delivery O2 Flow Rate FiO2 08/23/18 08:38 93 Room Air 08/23/18 08:13 64 174/80 08/23/18 07:00 98.6 18 98.6 Physical Exam General: Alert, Oriented X3, Cooperative, No acute distress Heart: Regular rate (Sr no ectopies), Normal S1, Normal S2, No murmurs Abdomen: Soft, No tenderness Extremities: No cyanosis, No edema Skin: No breakdown, No significant lesion Labs LABS Laboratory Tests Test 08/23/18 03:15 Prothrombin Time 22.9 SEC (11.7-14.0) Prothromb Time International Ratio 2.1 (0.8-1.1) Sodium Level 137 mmol/L (136-145) Potassium Level 3.9 mmol/L (3.5-5.1) Chloride Level 103 mmol/L (98-107) Carbon Dioxide Level 28 mmol/L (21-32) Anion Gap 6 (6-14) Blood Urea Nitrogen 14 mg/dL (7-20) Creatinine 1.2 mg/dL (0.6-1.0) Estimated GFR (Cockcroft-Gault) 53.4 Glucose Level 129 mg/dL (70-99) Calcium Level 9.7 mg/dL (8.5-10.1) Review of Systems Review of Systems A 14 point ROS was completed with the following noted as positive: Other systems reviewed and negative. \CONSTITUTIONAL: No fever or chills EYES: No recent changes SKIN: No rash or itching CARDIOVASCULAR: No chest pain, syncope, palpitations, or edema RESPIRATORY: No SOB or cough GASTROINTESTINAL: No nausea, vomiting or abdominal pain NEUROLOGICAL: No headaches or weakness ENDOCRINE: No cold or heat intolerance GENITOURINARY: No urgency or frequency of urination MUSCULOSKELETAL: No back pain or joint pain LYMPHATICS: No enlarged lymph nodes PSYCHIATRIC: No anxiety or depression Assessment and Plan Assessmemt and Plan Problems Medical Problems: (1) Diarrhea Status: Acute (2) Elevated serum creatinine Status: Acute (3) Hypertension Status: Acute (4) Vomiting Status: Acute Comment Review of Relevant I have reviewed the following items grady (where applicable) has been applied. Labs Laboratory Tests Test 08/21/18 10:10 08/22/18 05:15 08/23/18 03:15 Prothrombin Time 38.7 SEC (11.7-14.0) 34.8 SEC (11.7-14.0) 22.9 SEC (11.7-14.0) Prothromb Time International Ratio 4.0 (0.8-1.1) 3.5 (0.8-1.1) 2.1 (0.8-1.1) White Blood Count 4.6 x10^3/uL (4.0-11.0) Red Blood Count 5.08 x10^6/uL (3.50-5.40) Hemoglobin 15.1 g/dL (12.0-15.5) Hematocrit 44.9 % (36.0-47.0) Mean Corpuscular Volume 88 fL (79-100) Mean Corpuscular Hemoglobin 30 pg (25-35) Mean Corpuscular Hemoglobin Concent 34 g/dL (31-37) Red Cell Distribution Width 13.5 % (11.5-14.5) Platelet Count 147 x10^3/uL (140-400) Sodium Level 135 mmol/L (136-145) 137 mmol/L (136-145) Potassium Level 3.8 mmol/L (3.5-5.1) 3.9 mmol/L (3.5-5.1) Chloride Level 101 mmol/L (98-107) 103 mmol/L (98-107) Carbon Dioxide Level 28 mmol/L (21-32) 28 mmol/L (21-32) Anion Gap 6 (6-14) 6 (6-14) Blood Urea Nitrogen 13 mg/dL (7-20) 14 mg/dL (7-20) Creatinine 1.2 mg/dL (0.6-1.0) 1.2 mg/dL (0.6-1.0) Estimated GFR (Cockcroft-Gault) 53.4 53.4 Glucose Level 119 mg/dL (70-99) 129 mg/dL (70-99) Calcium Level 10.0 mg/dL (8.5-10.1) 9.7 mg/dL (8.5-10.1) Laboratory Tests Test 08/23/18 03:15 Prothrombin Time 22.9 SEC (11.7-14.0) Prothromb Time International Ratio 2.1 (0.8-1.1) Sodium Level 137 mmol/L (136-145) Potassium Level 3.9 mmol/L (3.5-5.1) Chloride Level 103 mmol/L (98-107) Carbon Dioxide Level 28 mmol/L (21-32) Anion Gap 6 (6-14) Blood Urea Nitrogen 14 mg/dL (7-20) Creatinine 1.2 mg/dL (0.6-1.0) Estimated GFR (Cockcroft-Gault) 53.4 Glucose Level 129 mg/dL (70-99) Calcium Level 9.7 mg/dL (8.5-10.1) Medications Current Medications Ondansetron HCl (Zofran) 4 mg 1X ONCE IM Last administered on 08/19/18at 13:58; Start 08/19/18 at 14:00; Stop 08/19/18 at 14:01; Status DC Sodium Chloride 1,000 ml @ 1,000 mls/hr 1X ONCE IV Last administered on 08/19/18at 14:42; Start 08/19/18 at 14:30; Stop 08/19/18 at 15:29; Status DC Ondansetron HCl (Zofran) 4 mg PRN Q8HRS PRN IV NAUSEA/VOMITING Last a dministered on 08/20/18at 12:59; Start 08/19/18 at 15:45; Stop 08/20/18 at 15:44; Status DC Morphine Sulfate (Morphine Sulfate) 2 mg PRN Q2HR PRN IV PAIN; Start 08/19/18 at 15:45; Stop 08/20/18 at 15:44; Status DC Hydralazine HCl (Apresoline Inj) 10 mg 1X ONCE IVP Last administered on 08/19/18at 17:25; Start 08/19/18 at 17:15; Stop 08/19/18 at 17:17; Status DC Metoclopramide HCl (Reglan Vial) 10 mg 1X ONCE IV Last administered on 08/19/18at 18:32; Start 08/19/18 at 18:15; Stop 08/19/18 at 18:16; Status DC Amlodipine Besylate (Norvasc) 5 mg 1X ONCE PO ; Start 08/19/18 at 19:30; Stop 08/19/18 at 19:31; Status DC Amlodipine Besylate (Norvasc) 5 mg DAILY PO Last administered on 08/21/18at 09:00; Start 08/20/18 at 09:00; Stop 08/21/18 at 10:05; Status DC Lisinopril (Prinivil) 20 mg DAILY PO Last administered on 08/20/18at 09:09; Start 08/20/18 at 09:00; Stop 08/20/18 at 10:45; Status DC Lisinopril (Prinivil) 20 mg 1X ONCE PO ; Start 08/19/18 at 19:30; Stop 08/19/18 at 19:31; Status DC Enoxaparin Sodium (Lovenox Per Pharmacy Prophylaxis Dosing) 1 each PRN DAILY PRN MC SEE COMMENTS; Start 08/19/18 at 20:15; Stop 08/20/18 at 11:44; Status DC Enoxaparin Sodium (Lovenox 40mg Syringe) 40 mg Q12H SQ Last administered on 08/19/18at 21:31; Start 08/19/18 at 21:00; Stop 08/20/18 at 11:44; Status DC Clonidine HCl (Catapres Tts-1) 1 patch WEEKLY TD Last administered on 08/19/18 21:30; Start 08/19/18 at 21:00; Stop 08/20/18 at 11:33; Status DC Pantoprazole Sodium (PROTONIX VIAL for IV PUSH) 40 mg BIDAC IVP Last administered on 08/23/18 08:09; Start 08/20/18 at 09:00 Carvedilol (Coreg) 12.5 mg BIDWMEALS PO Last administered on 08/22/18 08:52; Start 08/20/18 at 10:30; Stop 08/22/18 at 12:42; Status DC Labetalol HCl (Normodyne Iv Push) 20 mg PRN Q2HR PRN IVP HYPERTENSION, 2ND CHOICE Last administered on 08/20/18 14:18; Start 08/20/18 at 10:15 Aspirin (Ecotrin) 81 mg DAILY PO Last administered on 08/23/18 08:09; Start 08/20/18 at 11:00 Atorvastatin Calcium (Lipitor) 40 mg HS PO Last administered on 08/22/18 20:51; Start 08/20/18 at 21:00 Bupropion HCl (Wellbutrin Sr) 150 mg BID PO Last administered on 08/23/18 08:09; Start 08/20/18 at 21:00 Vitamin D (Vitamin D3) 1,000 unit DAILY PO ; Start 08/20/18 at 11:00; Stop 08/20/18 at 12:53; Status DC Clonidine HCl (Catapres) 0.3 mg QHS PO ; Start 08/20/18 at 21:00; Stop 08/20/18 at 21:00; Status DC Docusate Sodium (Colace) 100 mg BID PO Last administered on 08/22/18 20:50; Start 08/20/18 at 11:00 Lisinopril (Prinivil) 20 mg BID PO Last administered on 08/23/18 08:10; Start 08/20/18 at 21:00 Oxycodone/ Acetaminophen (Percocet 10/325) 1 tab PRN Q6HRS PRN PO PAIN; Start 08/20/18 at 10:45 Hydrochlorothiazide (Hydrodiuril) 25 mg DAILY PO ; Start 08/20/18 at 11:00; Stop 08/20/18 at 12:53; Status DC Polyethylene Glycol (miraLAX PACKET) 17 gm DAILY PO ; Start 08/20/18 at 11:00; Stop 08/21/18 at 15:29; Status DC Spironolactone (Aldactone) 25 mg DAILY PO ; Start 08/20/18 at 12:00; Stop 08/20/18 at 12:53; Status DC Warfarin Sodium (Coumadin) 5 mg 1X WARF ONCE PO Last administered on 08/20/18at 18:51; Start 08/20/18 at 16:00; Stop 08/20/18 at 16:01; Status DC Potassium Chloride/Dextrose/ Sod Cl 1,000 ml @ 75 mls/hr [id number] IV Last administered on 08/23/18at 08:26; Start 08/20/18 at 11:00 Warfarin Sodium (Coumadin Per Pharmacy) 1 each PRN DAILY PRN MC SEE COMMENTS Last administered on 08/21/18at 10:35; Start 08/20/18 at 12:00; Stop 08/21/18 at 10:57; Status DC Clonidine HCl (Catapres Tts-2) 1 patch We TD Last administered on 08/20/18at 13:56; Start 08/20/18 at 13:00 Ondansetron HCl (Zofran) 4 mg PRN Q8HRS PRN IV NAUSEA/VOMITING Last administered on 08/21/18at 09:04; Start 08/20/18 at 13:15; Stop 08/21/18 at 11:00; Status DC Hydralazine HCl (Apresoline Inj) 10 mg PRN Q2HRS PRN IVP ELEVATED BP, 1ST CHOICE Last administered on 08/22/18at 15:45; Start 08/20/18 at 18:15 Amlodipine Besylate (Norvasc) 5 mg DAILY PO ; Start 08/21/18 at 09:00; Status UNV Amlodipine Besylate (Norvasc) 10 mg DAILY PO Last administered on 08/23/18at 08:12; Start 08/22/18 at 09:00 Amlodipine Besylate (Norvasc) 5 mg 1X ONCE PO Last administered on 08/21/18at 11:19; Start 08/21/18 at 10:15; Stop 08/21/18 at 10:16; Status DC Warfarin Sodium (Coumadin - No Dose Today) 1 each 1X WARF ONCE MC ; Start 08/21/18 at 16:00; Stop 08/21/18 at 16:01; Status DC Phytonadione (Vitamin K Ampule) 5 mg 1X ONCE SQ Last administered on 08/21/18at 11:19; Start 08/21/18 at 11:00; Stop 08/21/18 at 11:07; Status DC Ondansetron HCl (Zofran) 4 mg PRN Q6HRS PRN IV NAUSEA/VOMITING, 1ST CHOICE Last administered on 08/22/18at 05:57; Start 08/21/18 at 11:00 Prochlorperazine Edisylate (Compazine) 10 mg PRN Q6HRS PRN IV NAUSEA/VOMITING, 2ND CHOICE Last administered on 08/22/18at 07:41; Start 08/21/18 at 11:00 Fentanyl Citrate (Fentanyl 2ml Vial) 50 mcg PRN Q2HR PRN IV SEVERE PAIN; Start 08/21/18 at 11:00 Multi-Ingredient Mouthwash/Gargle (Gi Cocktail) 20 ml PRN QID PRN PO CHEST PAIN; Start 08/21/18 at 11:00 Polyethylene Glycol (miraLAX PACKET) 17 gm BID PO ; Start 08/21/18 at 21:00 Carvedilol (Coreg) 25 mg BIDWMEALS PO Last administered on 08/23/18at 08:13; Start 08/22/18 at 17:00 Carvedilol (Coreg) 12.5 mg 1X ONCE PO ; Start 08/22/18 at 12:45; Stop 08/22/18 at 12:46; Status DC Bisacodyl (Dulcolax Supp) 10 mg 1X ONCE NE Last administered on 08/22/18at 15:36; Start 08/22/18 at 15:00; Stop 08/22/18 at 15:03; Status DC Albuterol/ Ipratropium (Duoneb) 3 ml RTQID NEB Last administered on 08/23/18at 08:37; Start 08/22/18 at 22:00 Metoclopramide HCl (Reglan) 10 mg TIDAC PO ; Start 08/23/18 at 09:00 Active Scripts Active Reported Spironolactone 25 Mg Tablet 1 Tab PO BID PRN Warfarin Sodium 5 Mg Tablet 5 Mg PO DAILY Miralax (Polyethylene Glycol 3350) 17 Gm Powd.pack 1 Packet PO DAILY Percocet 10-325 Mg Tablet (Oxycodone/Acetaminophen) 1 Each Tablet 1 Tab PO PRN Q6HRS PRN Metoprolol Tartrate 50 Mg Tablet 1 Tab PO BID Metformin Hcl 500 Mg Tablet 500 Mg PO BIDWMEALS Lisinopril 20 Mg Tablet 1 Tab PO BID Hydrochlorothiazide Tablet (Hydrochlorothiazide) 12.5 Mg Tablet 25 Mg PO DAILY Docusate Sodium 100 Mg Capsule 1 Cap PO BID Clonidine Hcl 0.3 Mg Tablet 1 Tab PO QHS Vitamin D3 (Cholecalciferol (Vitamin D3)) 1,000 Unit Tablet 1 Tab PO DAILY [calcium] Wellbutrin Sr (Bupropion Hcl) 150 Mg Tablet.er 1 Tab PO BID Atorvastatin Calcium 40 Mg Tablet 40 Mg PO HS Aspir-Low (Aspirin) 81 Mg Tablet.dr 1 Tab PO DAILY Proventil Hfa Inhaler (Albuterol Sulfate) 6.7 Gm Hfa.aer.ad 2 Puff IH PRN Q4HRS PRN Vitals/I & O Vital Sign - Last 24 Hours 08/22/18 08/22/18 08/22/18 08/22/18 11:00 13:11 15:45 15:54 Temp 98.5 97.5 98.5 97.5 Pulse 72 72 70 75 Resp 18 16 B/P (MAP) 184/89 (120) 184/89 168/89 164/89 (114) Pulse Ox 96 95 O2 Delivery Room Air Room Air 08/22/18 08/22/18 08/22/18 08/22/18 19:00 19:30 20:51 20:51 Temp 98.0 98.0 Pulse 78 78 78 Resp 18 B/P (MAP) 155/92 (113) 155/92 155/92 Pulse Ox 93 O2 Delivery Room Air Room Air 08/22/18 08/22/18 08/23/18 08/23/18 21:13 23:54 03:50 07:00 Temp 99.0 98.0 98.6 99.0 98.0 98.6 Pulse 69 69 64 Resp 16 18 18 B/P (MAP) 128/69 (88) 160/75 (103) 174/80 (111) Pulse Ox 98 94 96 93 O2 Delivery Room Air Room Air Room Air Room Air 08/23/18 08/23/18 08/23/18 08/23/18 08:00 08:10 08:12 08:13 Pulse 64 64 64 B/P (MAP) 174/80 174/80 174/80 O2 Delivery Room Air 08/23/18 08:38 Pulse Ox 93 O2 Delivery Room Air Intake and Output 08/22/18 08/22/18 08/23/18 15:00 23:00 07:00 Intake Total 320 ml 100 ml 0 ml Balance 320 ml 100 ml 0 ml GABO ROD MD Aug 23, 2018 10:04
[2018-08-23] MEDS: METOCLOPRAMIDE 10 MG TABLET. PO SCH ×3 (10:08→16:46)
--- NOTE | 2018-08-23 10:22 | NUR ---
Pharmacy Warfarin Dosing Note S:Pharmacy consulted to assist with anticoagulation therapy started with target INR: 2 -3 O:GIBRAN ALVAREZ is a 73 year old F with DVT/PE LABS: Last INR: 2.1 Last HGB: 14.7 Last HCT: 43.9 Last PLT: 163 Last dose of 5 mg given on 08/20/18 at 1851 Previous Regimen: Vitamin K given: Y ON ADMISSION Drug Interaction Changes: Ongoing Drug Interactions: ASA A:INR of 2.1 is within desired range. Target range for this patient is: 2 -3 P: Warfarin dose: 4 mg Today at 1600 [facility] Therapy: Next INR due IN AM Pharmacy anticoagulation service will continue to follow. RACHELLE GARG [facility], 08/23/18 [id number]
[2018-08-23 11:00] VITALS: BP 134/71
[2018-08-23 15:10] VITALS: BP 137/74
[2018-08-23] MEDS ORDERED: WARFARIN 4 MG TABLET. PO ONE (16:00)
[2018-08-23 19:00] VITALS: BP 147/85
[2018-08-23] MEDS: ATORVASTATIN CALCIUM 40 MG TABLET. PO SCH (20:41)
[2018-08-23 22:58] VITALS: BP 145/68
[2018-08-24] VITALS (7 sets, daily range): BP systolic 112–186; BP diastolic 48–85
[2018-08-24 05:28] LABS: BASO % 0 % (0-3); EOS % 1 % (0-3); HEMATOCRIT 41.7 % (36.0-47.0); LYMPH # 1.1 x10^3/uL (1.0-4.8); LYMPH % 23 % (24-48); MEAN CORPUSCULAR HEMOGLOBIN 30 pg (25-35); MEAN CORPUSCULAR HGB CONC 34 g/dL (31-37); MEAN CORPUSCULAR VOLUME 88 fL (79-100); MONO # 0.5 x10^3/uL (0.0-1.1); MONO % 11 % (0-9); NEUT % 65 % (31-73); PLATELET COUNT 136 x10^3/uL (140-400); RED BLOOD COUNT 4.73 x10^6/uL (3.50-5.40); RED CELL DISTRIBUTION WIDTH 13.5 % (11.5-14.5); WHITE BLOOD COUNT 4.7 x10^3/uL (4.0-11.0)
[2018-08-24 05:48] LABS: PROTHROMBIN TIME PATIENT 17.1 SEC (11.7-14.0)
[2018-08-24] MEDS: IPRATRPIUM/ALBUTEROL 0.5/2.5MG 3 ML NEBU. NEB SCH ×4 (07:56→20:39)
[2018-08-24] MEDS: PANTOPRAZOLE 40 MG TABLET.DR. PO SCH (08:19)
[2018-08-24] MEDS: DOCUSATE SODIUM 100 MG CAPSULE. PO SCH ×2 (08:19→20:34)
[2018-08-24] MEDS: buPROPion SR 150 MG TABLET.SA PO SCH ×2 (08:19→20:34)
[2018-08-24] MEDS: METOCLOPRAMIDE 10 MG TABLET. PO SCH ×2 (08:19→11:30)
[2018-08-24] MEDS: amLODIPine BESYLATE 5 MG TABLET PO SCH (08:20)
[2018-08-24] MEDS: POTASSIUM CL 20MEQ D5-0.45NACL 1,000 ML IV SCH (08:20)
[2018-08-24] MEDS: ASPIRIN ENTERIC COATED 81 MG TABLET.DR. PO SCH (08:20)
[2018-08-24] MEDS: CARVEDILOL 12.5 MG TABLET. PO SCH (08:21)
[2018-08-24] MEDS: POLYETHYLENE GLYCOL 3350 17 GM PACKET. PO SCH ×2 (08:21→20:34)
[2018-08-24] MEDS: LISINOPRIL 20 MG TABLET PO SCH ×2 (08:22→20:34)
--- NOTE | 2018-08-24 09:32 | NUR ---
Pharmacy Warfarin Dosing Note S:Pharmacy consulted to assist with anticoagulation therapy started with target INR: 2 -3 O:GIBRAN ALVAREZ is a 73 year old F with DVT/PE LABS: Last INR: 1.4 Last HGB: 14.7 Last HCT: 43.9 Last PLT: 163 Last dose of 4 mg given on 08/23/18 at 1851 Previous Regimen: Vitamin K given: Y ON ADMISSION Drug Interaction Changes: Ongoing Drug Interactions: ASA A:INR of 1.4 is below desired range. Target range for this patient is: 2 -3 P: Warfarin dose: 5 mg Today at 1600 [facility] Therapy: Next INR due IN AM Pharmacy anticoagulation service will continue to follow. RACHELLE GARG [facility], 08/24/18 [id number]
--- NOTE | 2018-08-24 11:04 | PDOC ---
PROGRESS NOTES Chief Complaint Chief Complaint 1. GASTROPARESIS - NEW Dx - DELAYED GET - 08/22/18 2. Abdominal pain/n/v,some hematemesis - the latter resolved 3. LONG standing DM 4. Accelerated HTN: likely sec to constant retching - crads has made adjustments today 08/24/18 5. HLP 6. Hx of CVA 7. 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 CORINNE 9. Obesity BMI 42 10. Supra Therapeutic INR with mild hematemesis nOW SUBTHERAPEUTIC 11. HYpokalemia sec to emesis and poor po - CORRECTED History of Present Illness History of Present Illness Second day that she is much better in terms of the nausea an GET is abN - delayed Initially had INR of 4 with some hematemesis with vomiting-initially planned for EGD but that did not push through hence got vitamin K and Coumadin was on hold Now INR 1.4. Needs to be on lifetime Coumadin for DVT PE history blood pressure on the high side,-I have discussed with cardiology, they made adjustments today grand daughter at bedside had a lot of questions and we have provided appropriate answers to her content and provided even copies of her tests Plan Okay transfer out of [facility] to a nonmonitored bed Continue blood pressure checks every 4 which is protocol on the floors Warfarin per pharmacy She did get 4 mg of warfarin yesterday and INR is today 1.4 INR check tomorrow PT recommended SNU and granddaughter agreeable Consult social work DC K containing IVF as potassium is already normal and she is starting by mouth intake Possibly home tomorrow with new blood pressure regimen to SNU Full code Vitals Vitals Vital Signs Date Time Temp Pulse Resp B/P (MAP) Pulse Ox O2 Delivery O2 Flow Rate FiO2 08/24/18 08:22 66 186/92 08/24/18 08:00 Room Air 08/24/18 07:56 97 08/24/18 07:36 98.8 16 98.8 Physical Exam General: Alert, Oriented X3, Cooperative, No acute distress Heart: Regular rate (Sr no ectopies), Normal S1, Normal S2, No murmurs Abdomen: Soft, No tenderness Extremities: No cyanosis, No edema Skin: No breakdown, No significant lesion Labs LABS Laboratory Tests Test 08/24/18 04:44 White Blood Count 4.7 x10^3/uL (4.0-11.0) Red Blood Count 4.73 x10^6/uL (3.50-5.40) Hemoglobin 14.0 g/dL (12.0-15.5) Hematocrit 41.7 % (36.0-47.0) Mean Corpuscular Volume 88 fL (79-100) Mean Corpuscular Hemoglobin 30 pg (25-35) Mean Corpuscular Hemoglobin Concent 34 g/dL (31-37) Red Cell Distribution Width 13.5 % (11.5-14.5) Platelet Count 136 x10^3/uL (140-400) Neutrophils (%) (Auto) 65 % (31-73) Lymphocytes (%) (Auto) 23 % (24-48) Monocytes (%) (Auto) 11 % (0-9) Eosinophils (%) (Auto) 1 % (0-3) Basophils (%) (Auto) 0 % (0-3) Neutrophils # (Auto) 3.0 x10^3uL (1.8-7.7) Lymphocytes # (Auto) 1.1 x10^3/uL (1.0-4.8) Monocytes # (Auto) 0.5 x10^3/uL (0.0-1.1) Eosinophils # (Auto) 0.0 x10^3/uL (0.0-0.7) Basophils # (Auto) 0.0 x10^3/uL (0.0-0.2) Prothrombin Time 17.1 SEC (11.7-14.0) Prothromb Time International Ratio 1.4 (0.8-1.1) Review of Systems Review of Systems A 14 point ROS was completed with the following noted as positive: Other systems reviewed and negative. \CONSTITUTIONAL: No fever or chills EYES: No recent changes SKIN: No rash or itching CARDIOVASCULAR: No chest pain, syncope, palpitations, or edema RESPIRATORY: No SOB or cough GASTROINTESTINAL: No nausea, vomiting or abdominal pain NEUROLOGICAL: No headaches or weakness ENDOCRINE: No cold or heat intolerance GENITOURINARY: No urgency or frequency of urination MUSCULOSKELETAL: No back pain or joint pain LYMPHATICS: No enlarged lymph nodes PSYCHIATRIC: No anxiety or depression Assessment and Plan Assessmemt and Plan Problems Medical Problems: (1) Diarrhea Status: Acute (2) Elevated serum creatinine Status: Acute (3) Hypertension Status: Acute (4) Vomiting Status: Acute Comment Review of Relevant I have reviewed the following items grady (where applicable) has been applied. Labs Laboratory Tests Test 08/23/18 03:15 08/23/18 10:41 08/24/18 04:44 Prothrombin Time 22.9 SEC (11.7-14.0) 17.1 SEC (11.7-14.0) Prothromb Time International Ratio 2.1 (0.8-1.1) 1.4 (0.8-1.1) Sodium Level 137 mmol/L (136-145) Potassium Level 3.9 mmol/L (3.5-5.1) Chloride Level 103 mmol/L (98-107) Carbon Dioxide Level 28 mmol/L (21-32) Anion Gap 6 (6-14) Blood Urea Nitrogen 14 mg/dL (7-20) Creatinine 1.2 mg/dL (0.6-1.0) Estimated GFR (Cockcroft-Gault) 53.4 Glucose Level 129 mg/dL (70-99) Calcium Level 9.7 mg/dL (8.5-10.1) Glucose (Fingerstick) 125 mg/dL (70-99) White Blood Count 4.7 x10^3/uL (4.0-11.0) Red Blood Count 4.73 x10^6/uL (3.50-5.40) Hemoglobin 14.0 g/dL (12.0-15.5) Hematocrit 41.7 % (36.0-47.0) Mean Corpuscular Volume 88 fL (79-100) Mean Corpuscular Hemoglobin 30 pg (25-35) Mean Corpuscular Hemoglobin Concent 34 g/dL (31-37) Red Cell Distribution Width 13.5 % (11.5-14.5) Platelet Count 136 x10^3/uL (140-400) Neutrophils (%) (Auto) 65 % (31-73) Lymphocytes (%) (Auto) 23 % (24-48) Monocytes (%) (Auto) 11 % (0-9) Eosinophils (%) (Auto) 1 % (0-3) Basophils (%) (Auto) 0 % (0-3) Neutrophils # (Auto) 3.0 x10^3uL (1.8-7.7) Lymphocytes # (Auto) 1.1 x10^3/uL (1.0-4.8) Monocytes # (Auto) 0.5 x10^3/uL (0.0-1.1) Eosinophils # (Auto) 0.0 x10^3/uL (0.0-0.7) Basophils # (Auto) 0.0 x10^3/uL (0.0-0.2) Laboratory Tests Test 08/24/18 04:44 White Blood Count 4.7 x10^3/uL (4.0-11.0) Red Blood Count 4.73 x10^6/uL (3.50-5.40) Hemoglobin 14.0 g/dL (12.0-15.5) Hematocrit 41.7 % (36.0-47.0) Mean Corpuscular Volume 88 fL (79-100) Mean Corpuscular Hemoglobin 30 pg (25-35) Mean Corpuscular Hemoglobin Concent 34 g/dL (31-37) Red Cell Distribution Width 13.5 % (11.5-14.5) Platelet Count 136 x10^3/uL (140-400) Neutrophils (%) (Auto) 65 % (31-73) Lymphocytes (%) (Auto) 23 % (24-48) Monocytes (%) (Auto) 11 % (0-9) Eosinophils (%) (Auto) 1 % (0-3) Basophils (%) (Auto) 0 % (0-3) Neutrophils # (Auto) 3.0 x10^3uL (1.8-7.7) Lymphocytes # (Auto) 1.1 x10^3/uL (1.0-4.8) Monocytes # (Auto) 0.5 x10^3/uL (0.0-1.1) Eosinophils # (Auto) 0.0 x10^3/uL (0.0-0.7) Basophils # (Auto) 0.0 x10^3/uL (0.0-0.2) Prothrombin Time 17.1 SEC (11.7-14.0) Prothromb Time International Ratio 1.4 (0.8-1.1) Medications Current Medications Ondansetron HCl (Zofran) 4 mg 1X ONCE IM Last administered on 08/19/18at 13:58; Start 08/19/18 at 14:00; Stop 08/19/18 at 14:01; Status DC Sodium Chloride 1,000 ml @ 1,000 mls/hr 1X ONCE IV Last administered on 08/19/18at 14:42; Start 08/19/18 at 14:30; Stop 08/19/18 at 15:29; Status DC Ondansetron HCl (Zofran) 4 mg PRN Q8HRS PRN IV NAUSEA/VOMITING Last administered on 08/20/18at 12:59; Start 08/19/18 at 15:45; Stop 08/20/18 at 15:44; Status DC Morphine Sulfate (Morphine Sulfate) 2 mg PRN Q2HR PRN IV PAIN; Start 08/19/18 at 15:45; Stop 08/20/18 at 15:44; Status DC Hydralazine HCl (Apresoline Inj) 10 mg 1X ONCE IVP Last administered on 07/29 07/15at 17:25; Start 08/19/18 at 17:15; Stop 08/19/18 at 17:17; Status DC Metoclopramide HCl (Reglan Vial) 10 mg 1X ONCE IV Last administered on 08/19/18at 18:32; Start 08/19/18 at 18:15; Stop 08/19/18 at 18:16; Status DC Amlodipine Besylate (Norvasc) 5 mg 1X ONCE PO ; Start 08/19/18 at 19:30; Stop 08/19/18 at 19:31; Status DC Amlodipine Besylate (Norvasc) 5 mg DAILY PO Last administered on 08/21/18at 09:00; Start 08/20/18 at 09:00; Stop 08/21/18 at 10:05; Status DC Lisinopril (Prinivil) 20 mg DAILY PO Last administered on 08/20/18at 09:09; Start 08/20/18 at 09:00; Stop 08/20/18 at 10:45; Status DC Lisinopril (Prinivil) 20 mg 1X ONCE PO ; Start 08/19/18 at 19:30; Stop 08/19/18 at 19:31; Status DC Enoxaparin Sodium (Lovenox Per Pharmacy Prophylaxis Dosing) 1 each PRN DAILY PRN MC SEE COMMENTS; Start 08/19/18 at 20:15; Stop 08/20/18 at 11:44; Status DC Enoxaparin Sodium (Lovenox 40mg Syringe) 40 mg Q12H SQ Last administered on 08/19/18at 21:31; Start 08/19/18 at 21:00; Stop 08/20/18 at 11:44; Status DC Clonidine HCl (Catapres Tts-1) 1 patch WEEKLY TD Last administered on 08/19/18at 21:30; Start 08/19/18 at 21:00; Stop 08/20/18 at 11:33; Status DC Pantoprazole Sodium (PROTONIX VIAL for IV PUSH) 40 mg BIDAC IVP Last administered on 08/23/18at 08:09; Start 08/20/18 at 09:00; Stop 08/23/18 at 16:22; Status DC Carvedilol (Coreg) 12.5 mg BIDWMEALS PO Last administered on 08/22/18at 08:52; Start 08/20/18 at 10:30; Stop 08/22/18 at 12:42; Status DC Labetalol HCl (Normodyne Iv Push) 20 mg PRN Q2HR PRN IVP HYPERTENSION, 2ND CHOICE Last administered on 08/20/18at 14:18; Start 08/20/18 at 10:15 Aspirin (Ecotrin) 81 mg DAILY PO Last administered on 08/24/18at 08:20; Start 08/20/18 at 11:00 Atorvastatin Calcium (Lipitor) 40 mg HS PO Last administered on 08/23/18at 20:41; Start 08/20/18 at 21:00 Bupropion HCl (Wellbutrin Sr) 150 mg BID PO Last administered on 08/24/18at 08:19; Start 08/20/18 at 21:00 Vitamin D (Vitamin D3) 1,000 unit DAILY PO ; Start 08/20/18 at 11:00; Stop 08/20/18 at 12:53; Status DC Clonidine HCl (Catapres) 0.3 mg QHS PO ; Start 08/20/18 at 21:00; Stop 08/20/18 at 21:00; Status DC Docusate Sodium (Colace) 100 mg BID PO Last administered on 08/24/18at 08:19; Start 08/20/18 at 11:00 Lisinopril (Prinivil) 20 mg BID PO Last administered on 08/24/18at 08:22; Start 08/20/18 at 21:00 Oxycodone/ Acetaminophen (Percocet 10/325) 1 tab PRN Q6HRS PRN PO PAIN; Start 08/20/18 at 10:45 Hydrochlorothiazide (Hydrodiuril) 25 mg DAILY PO ; Start 08/20/18 at 11:00; Stop 08/20/18 at 12:53; Status DC Polyethylene Glycol (miraLAX PACKET) 17 gm DAILY PO ; Start 08/20/18 at 11:00; Stop 08/21/18 at 15:29; Status DC Spironolactone (Aldactone) 25 mg DAILY PO ; Start 08/20/18 at 12:00; Stop 08/20/18 at 12:53; Status DC Warfarin Sodium (Coumadin) 5 mg 1X WARF ONCE PO Last administered on 08/20/18at 18:51; Start 08/20/18 at 16:00; Stop 08/20/18 at 16:01; Status DC Potassium Chloride/Dextrose/ Sod Cl 1,000 ml @ 75 mls/hr [id number] IV Last administered on 08/23/18at 08:26; Start 08/20/18 at 11:00; Stop 08/24/18 at 09:08; Status DC Warfarin Sodium (Coumadin Per Pharmacy) 1 each PRN DAILY PRN MC SEE COMMENTS Last administered on 08/21/18at 10:35; Start 08/20/18 at 12:00; Stop 08/21/18 at 10:57; Status DC Clonidine HCl (Catapres Tts-2) 1 patch We TD Last administered on 08/20/18at 13:56; Start 08/20/18 at 13:00 Ondansetron HCl (Zofran) 4 mg PRN Q8HRS PRN IV NAUSEA/VOMITING Last administered on 08/21/18at 09:04; Start 08/20/18 at 13:15; Stop 08/21/18 at 11:00; Status DC Hydralazine HCl (Apresoline Inj) 10 mg PRN Q2HRS PRN IVP ELEVATED BP, 1ST CHOICE Last administered on 08/22/18at 15:45; Start 08/20/18 at 18:15 Amlodipine Besylate (Norvasc) 5 mg DAILY PO ; Start 08/21/18 at 09:00; Status UNV Amlodipine Besylate (Norvasc) 10 mg DAILY PO Last administered on 08/24/18at 08:20; Start 08/22/18 at 09:00 Amlodipine Besylate (Norvasc) 5 mg 1X ONCE PO Last administered on 08/21/18at 11:19; Start 08/21/18 at 10:15; Stop 08/21/18 at 10:16; Status DC Warfarin Sodium (Coumadin - No Dose Today) 1 each 1X WARF ONCE MC ; Start 08/21/18 at 16:00; Stop 08/21/18 at 16:01; Status DC Phytonadione (Vitamin K Ampule) 5 mg 1X ONCE SQ Last administered on 08/21/18at 11:19; Start 08/21/18 at 11:00; Stop 08/21/18 at 11:07; Status DC Ondansetron HCl (Zofran) 4 mg PRN Q6HRS PRN IV NAUSEA/VOMITING, 1ST CHOICE Last administered on 08/22/18at 05:57; Start 08/21/18 at 11:00 Prochlorperazine Edisylate (Compazine) 10 mg PRN Q6HRS PRN IV NAUSEA/VOMITING, 2ND CHOICE Last administered on 08/22/18at 07:41; Start 08/21/18 at 11:00 Fentanyl Citrate (Fentanyl 2ml Vial) 50 mcg PRN Q2HR PRN IV SEVERE PAIN; Start 08/21/18 at 11:00 Multi-Ingredient Mouthwash/Gargle (Gi Cocktail) 20 ml PRN QID PRN PO CHEST PAIN; Start 08/21/18 at 11:00 Polyethylene Glycol (miraLAX PACKET) 17 gm BID PO Last administered on 08/24/18at 08:21; Start 08/21/18 at 21:00 Carvedilol (Coreg) 25 mg BIDWMEALS PO Last administered on 08/24/18at 08:21; Start 08/22/18 at 17:00; Stop 08/24/18 at 10:26; Status DC Carvedilol (Coreg) 12.5 mg 1X ONCE PO ; Start 08/22/18 at 12:45; Stop 08/22/18 at 12:46; Status DC Bisacodyl (Dulcolax Supp) 10 mg 1X ONCE MS Last administered on 08/22/18at 15:36; Start 08/22/18 at 15:00; Stop 08/22/18 at 15:03; Status DC Albuterol/ Ipratropium (Duoneb) 3 ml RTQID NEB Last administered on 08/24/18at 07:56; Start 08/22/18 at 22:00 Metoclopramide HCl (Reglan) 10 mg TIDAC PO Last administered on 08/24/18at 08:19; Start 08/23/18 at 09:00 Warfarin Sodium (Coumadin Per Pharmacy) 1 each PRN DAILY PRN MC SEE COMMENTS Last administered on 08/24/18at 09:32; Start 08/23/18 at 10:15 Warfarin Sodium (Coumadin) 4 mg 1X WARF ONCE PO Last administered on 08/23/18at 16:47; Start 08/23/18 at 16:00; Stop 08/23/18 at 16:01; Status DC Pantoprazole Sodium (Protonix) 40 mg DAILYAC PO Last administered on 08/24/18at 08:19; Start 08/24/18 at 07:30 Warfarin Sodium (Coumadin) 5 mg 1X WARF ONCE PO ; Start 08/24/18 at 16:00; Stop 08/24/18 at 16:01 Labetalol HCl (Trandate) 200 mg BID PO ; Start 08/24/18 at 21:00 Active Scripts Active Reported Spironolactone 25 Mg Tablet 1 Tab PO BID PRN Warfarin Sodium 5 Mg Tablet 5 Mg PO DAILY Miralax (Polyethylene Glycol 3350) 17 Gm Powd.pack 1 Packet PO DAILY Percocet 10-325 Mg Tablet (Oxycodone/Acetaminophen) 1 Each Tablet 1 Tab PO PRN Q6HRS PRN Metoprolol Tartrate 50 Mg Tablet 1 Tab PO BID Metformin Hcl 500 Mg Tablet 500 Mg PO BIDWMEALS Lisinopril 20 Mg Tablet 1 Tab PO BID Hydrochlorothiazide Tablet (Hydrochlorothiazide) 12.5 Mg Tablet 25 Mg PO DAILY Docusate Sodium 100 Mg Capsule 1 Cap PO BID Clonidine Hcl 0.3 Mg Tablet 1 Tab PO QHS Vitamin D3 (Cholecalciferol (Vitamin D3)) 1,000 Unit Tablet 1 Tab PO DAILY [calcium] Wellbutrin Sr (Bupropion Hcl) 150 Mg Tablet.er 1 Tab PO BID Atorvastatin Calcium 40 Mg Tablet 40 Mg PO HS Aspir-Low (Aspirin) 81 Mg Tablet.dr 1 Tab PO DAILY Proventil Hfa Inhaler (Albuterol Sulfate) 6.7 Gm Hfa.aer.ad 2 Puff IH PRN Q4HRS PRN Vitals/I & O Vital Sign - Last 24 Hours 08/23/18 08/23/18 08/23/18 08/23/18 12:19 15:10 15:41 16:46 Temp 97.7 97.7 Pulse 60 Resp 12 B/P (MAP) 137/74 (95) 137/74 Pulse Ox 96 98 O2 Delivery Room Air Room Air Room Air 08/23/18 08/23/18 08/23/18 08/23/18 18:28 19:00 20:00 20:42 Temp 98.1 98.1 Pulse 58 Resp 16 B/P (MAP) 147/85 (105) 147/85 Pulse Ox 93 O2 Delivery Room Air Room Air Room Air 08/23/18 08/24/18 08/24/18 08/24/18 22:58 03:00 07:36 07:56 Temp 98.7 98.6 98.8 98.7 98.6 98.8 Pulse 60 64 60 Resp 16 16 16 B/P (MAP) 145/68 (93) 152/73 (99) 186/72 (110) Pulse Ox 91 95 96 97 O2 Delivery Room Air Room Air Room Air Room Air 08/24/18 08/24/18 08/24/18 08/24/18 08:00 08:20 08:21 08:22 Pulse 66 66 66 B/P (MAP) 186/92 186/92 186/92 O2 Delivery Room Air Intake and Output 08/23/18 08/23/18 08/24/18 15:00 23:00 07:00 Intake Total 2080 ml 60 ml 140 ml Output Total 950 ml Balance 2080 ml -890 ml 140 ml GABO ROD MD Aug 24, 2018 11:04
[2018-08-24] MEDS ORDERED: METOCLOPRAMIDE 5 MG TABLET. PO PRN (11:45)
--- NOTE | 2018-08-24 12:00 | NUR ---
This patient transferred up to the floor via wheelchair, was able to ambulate to bed with assist. Family at bedside, patient is ready to shower, family is going to assist. Family stated concerns about placement, would like social work to call tomorrow to discuss options, phone number is located on the board in patient's room. This nurse will continue to monitor.
[2018-08-24] MEDS ORDERED: WARFARIN 5 MG TABLET. PO ONE (16:00)
[2018-08-24] MEDS: ATORVASTATIN CALCIUM 40 MG TABLET. PO SCH (20:34)
[2018-08-24] MEDS: LABETALOL HCL 200 MG TABLET PO SCH (20:38)
[2018-08-25] VITALS (7 sets, daily range): BP systolic 114–157; BP diastolic 72–83
[2018-08-25 05:55] LABS: PROTHROMBIN TIME PATIENT 16.6 SEC (11.7-14.0)
[2018-08-25] MEDS: IPRATRPIUM/ALBUTEROL 0.5/2.5MG 3 ML NEBU. NEB SCH ×4 (07:30→20:28)
[2018-08-25] MEDS: POLYETHYLENE GLYCOL 3350 17 GM PACKET. PO SCH ×2 (08:19→21:51)
[2018-08-25] MEDS: PANTOPRAZOLE 40 MG TABLET.DR. PO SCH (08:19)
[2018-08-25] MEDS: DOCUSATE SODIUM 100 MG CAPSULE. PO SCH ×2 (08:19→21:53)
[2018-08-25] MEDS: buPROPion SR 150 MG TABLET.SA PO SCH ×2 (08:19→21:52)
[2018-08-25] MEDS: LISINOPRIL 20 MG TABLET PO SCH ×2 (08:20→21:52)
[2018-08-25] MEDS: amLODIPine BESYLATE 5 MG TABLET PO SCH (08:20)
[2018-08-25] MEDS: ASPIRIN ENTERIC COATED 81 MG TABLET.DR. PO SCH (08:20)
[2018-08-25] MEDS: LABETALOL HCL 200 MG TABLET PO SCH ×2 (08:21→21:53)
--- NOTE | 2018-08-25 10:22 | PDOC ---
PROGRESS NOTES Chief Complaint Chief Complaint 1. GASTROPARESIS - NEW Dx - DELAYED GET - 08/22/18 2. Abdominal pain/n/v,some hematemesis - the latter resolved 3. LONG standing DM 4. Accelerated HTN: likely sec to constant retching - crads has made adjustments today 08/24/18 5. HLP 6. Hx of CVA 7. 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 CORINNE 9. Obesity BMI 42 10. Supra Therapeutic INR with mild hematemesis nOW SUBTHERAPEUTIC 11. HYpokalemia sec to emesis and poor po - CORRECTED 12. reported dysphagia plan low fiber/fat diet, small frequent meals. Continue PPI and Miralax - apparently no results from suppot ST Swallow screen GI CONSULTED History of Present Illness History of Present Illness Second day that she is much better in terms of the nausea an GET is abN - delayed Initially had INR of 4 with some hematemesis with vomiting-initially planned for EGD but that did not push through hence got vitamin K and Coumadin was on hold Now INR 1.4. Needs to be on lifetime Coumadin for DVT PE history blood pressure on the high side,-I have discussed with cardiology, they made adjustments today grand daughter at bedside had a lot of questions and we have provided appropriate answers to her content and provided even copies of her tests Plan Okay transfer out of [facility] to a nonmonitored bed Continue blood pressure checks every 4 which is protocol on the floors Warfarin per pharmacy She did get 4 mg of warfarin yesterday and INR is today 1.4 INR check tomorrow PT recommended SNU and granddaughter agreeable Consult social work DC K containing IVF as potassium is already normal and she is starting by mouth intake Possibly home tomorrow with new blood pressure regimen to SNU Full code Vitals Vitals Vital Signs Date Time Temp Pulse Resp B/P (MAP) Pulse Ox O2 Delivery O2 Flow Rate FiO2 08/25/18 08:21 60 157/82 08/25/18 07:31 99 Room Air 08/25/18 03:00 97.8 16 97.8 Physical Exam General: Alert, Oriented X3, Cooperative, No acute distress, mild distress Heart: Regular rate (Sr no ectopies), Normal S1, Normal S2, No murmurs Lungs: Clear Abdomen: Soft, No tenderness Extremities: No cyanosis, No edema Skin: No breakdown, No significant lesion Labs LABS REASON: resistant HTN, r/o EDWIN, PAT. ATE DO AFTER 5PM PROCEDURE: RENAL BILAT RENAL DUPLEX CO Bilateral deep Doppler renal ultrasound, 08/22/2018: HISTORY: Hypertension Duplex evaluation of the main renal arteries was attempted including grayscale, color-flow and spectral Doppler analysis. The origins of the renal arteries from the aorta were not clearly visualized due to overlying bowel gas. On the right, peak systolic velocity in the mid right renal artery is 137 cm/s and in the distal right renal artery is 58 cm/s. No parvus/tardus phenomena is seen. On the left, the peak systolic velocity in the mid left renal artery is 75 cm/s and in the distal left renal artery is 64 cm/s. No parvus/tardus phenomena is seen. Both renal veins are patent. The right kidney measures 9.8 cm in length while the left kidney measures 10.7 cm. IMPRESSION: No duplex evidence of significant renal artery stenosis, although the renal artery origins could not be adequately visualized on either side. Electronically signed by: Grady Monae MD (08/25/2018 12:35 PM) [facility] Laboratory Tests Test 08/25/18 05:22 Prothrombin Time 16.6 SEC (11.7-14.0) Prothromb Time International Ratio 1.4 (0.8-1.1) Assessment and Plan Assessmemt and Plan Problems Medical Problems: (1) Diarrhea Status: Acute (2) Elevated serum creatinine Status: Acute (3) Hypertension Status: Acute (4) Vomiting Status: Acute REASON: resistant HTN, r/o EDWIN, PAT. ATE DO AFTER 5PM PROCEDURE: RENAL BILAT RENAL DUPLEX CO Bilateral deep Doppler renal ultrasound, 08/22/2018: HISTORY: Hypertension Duplex evaluation of the main renal arteries was attempted including grayscale, color-flow and spectral Doppler analysis. The origins of the renal arteries from the aorta were not clearly visualized due to overlying bowel gas. On the right, peak systolic velocity in the mid right renal artery is 137 cm/s and in the distal right renal artery is 58 cm/s. No parvus/tardus phenomena is seen. On the left, the peak systolic velocity in the mid left renal artery is 75 cm/s and in the distal left renal artery is 64 cm/s. No parvus/tardus phenomena is seen. Both renal veins are patent. The right kidney measures 9.8 cm in length while the left kidney measures 10.7 cm. IMPRESSION: No duplex evidence of significant renal artery stenosis, although the renal artery origins could not be adequately visualized on either side. Electronically signed by: Grady Monae MD (08/25/2018 12:35 PM) [facility] Comment Review of Relevant I have reviewed the following items grady (where applicable) has been applied. Labs Laboratory Tests Test 08/23/18 10:41 08/24/18 04:44 08/25/18 05:22 Glucose (Fingerstick) 125 mg/dL (70-99) White Blood Count 4.7 x10^3/uL (4.0-11.0) Red Blood Count 4.73 x10^6/uL (3.50-5.40) Hemoglobin 14.0 g/dL (12.0-15.5) Hematocrit 41.7 % (36.0-47.0) Mean Corpuscular Volume 88 fL (79-100) Mean Corpuscular Hemoglobin 30 pg (25-35) Mean Corpuscular Hemoglobin Concent 34 g/dL (31-37) Red Cell Distribution Width 13.5 % (11.5-14.5) Platelet Count 136 x10^3/uL (140-400) Neutrophils (%) (Auto) 65 % (31-73) Lymphocytes (%) (Auto) 23 % (24-48) Monocytes (%) (Auto) 11 % (0-9) Eosinophils (%) (Auto) 1 % (0-3) Basophils (%) (Auto) 0 % (0-3) Neutrophils # (Auto) 3.0 x10^3uL (1.8-7.7) Lymphocytes # (Auto) 1.1 x10^3/uL (1.0-4.8) Monocytes # (Auto) 0.5 x10^3/uL (0.0-1.1) Eosinophils # (Auto) 0.0 x10^3/uL (0.0-0.7) Basophils # (Auto) 0.0 x10^3/uL (0.0-0.2) Prothrombin Time 17.1 SEC (11.7-14.0) 16.6 SEC (11.7-14.0) Prothromb Time International Ratio 1.4 (0.8-1.1) 1.4 (0.8-1.1) Laboratory Tests Test 08/25/18 05:22 Prothrombin Time 16.6 SEC (11.7-14.0) Prothromb Time International Ratio 1.4 (0.8-1.1) Medications Current Medications Ondansetron HCl (Zofran) 4 mg 1X ONCE IM Last administered on 08/19/18at 13:58; Start 08/19/18 at 14:00; Stop 08/19/18 at 14:01; Status DC Sodium Chloride 1,000 ml @ 1,000 mls/hr 1X ONCE IV Last administered on 08/19/18at 14:42; Start 08/19/18 at 14:30; Stop 08/19/18 at 15:29; Status DC Ondansetron HCl (Zofran) 4 mg PRN Q8HRS PRN IV NAUSEA/VOMITING Last administered on 08/20/18at 12:59; Start 08/19/18 at 15:45; Stop 08/20/18 at 15:44; Status DC Morphine Sulfate (Morphine Sulfate) 2 mg PRN Q2HR PRN IV PAIN; Start 08/19/18 at 15:45; Stop 08/20/18 at 15:44; Status DC Hydralazine HCl (Apresoline Inj) 10 mg 1X ONCE IVP Last administered on 08/19/18at 17:25; Start 08/19/18 at 17:15; Stop 08/19/18 at 17:17; Status DC Metoclopramide HCl (Reglan Vial) 10 mg 1X ONCE IV Last administered on 08/19/18at 18:32; Start 08/19/18 at 18:15; Stop 08/19/18 at 18:16; Status DC Amlodipine Besylate (Norvasc) 5 mg 1X ONCE PO ; Start 08/19/18 at 19:30; Stop 08/19/18 at 19:31; Status DC Amlodipine Besylate (Norvasc) 5 mg DAILY PO Last administered on 08/21/18at 09:00; Start 08/20/18 at 09:00; Stop 08/21/18 at 10:05; Status DC Lisinopril (Prinivil) 20 mg DAILY PO Last administered on 08/20/18at 09:09; Start 08/20/18 at 09:00; Stop 08/20/18 at 10:45; Status DC Lisinopril (Prinivil) 20 mg 1X ONCE PO ; Start 08/19/18 at 19:30; Stop 08/19/18 at 19:31; Status DC Enoxaparin Sodium (Lovenox Per Pharmacy Prophylaxis Dosing) 1 each PRN DAILY PRN MC SEE COMMENTS; Start 08/19/18 at 20:15; Stop 08/20/18 at 11:44; Status DC Enoxaparin Sodium (Lovenox 40mg Syringe) 40 mg Q12H SQ Last administered on 08/19/18at 21:31; Start 08/19/18 at 21:00; Stop 08/20/18 at 11:44; Status DC Clonidine HCl (Catapres Tts-1) 1 patch WEEKLY TD Last administered on 08/19/18 21:30; Start 08/19/18 at 21:00; Stop 08/20/18 at 11:33; Status DC Pantoprazole Sodium (PROTONIX VIAL for IV PUSH) 40 mg BIDAC IVP Last administered on 08/23/18at 08:09; Start 08/20/18 at 09:00; Stop 08/23/18 at 16:22; Status DC Carvedilol (Coreg) 12.5 mg BIDWMEALS PO Last administered on 08/22/18at 08:52; Start 08/20/18 at 10:30; Stop 08/22/18 at 12:42; Status DC Labetalol HCl (Normodyne Iv Push) 20 mg PRN Q2HR PRN IVP HYPERTENSION, 2ND CHOICE Last administered on 08/20/18at 14:18; Start 08/20/18 at 10:15 Aspirin (Ecotrin) 81 mg DAILY PO Last administered on 08/25/18 08:20; Start 08/20/18 at 11:00 Atorvastatin Calcium (Lipitor) 40 mg HS PO Last administered on 08/24/18at 20:34; Start 08/20/18 at 21:00 Bupropion HCl (Wellbutrin Sr) 150 mg BID PO Last administered on 08/25/18 08: 19; Start 08/20/18 at 21:00 Vitamin D (Vitamin D3) 1,000 unit DAILY PO ; Start 08/20/18 at 11:00; Stop 08/20/18 at 12:53; Status DC Clonidine HCl (Catapres) 0.3 mg QHS PO ; Start 08/20/18 at 21:00; Stop 08/20/18 at 21:00; Status DC Docusate Sodium (Colace) 100 mg BID PO Last administered on 08/25/18at 08:19; Start 08/20/18 at 11:00 Lisinopril (Prinivil) 20 mg BID PO Last administered on 08/25/18at 08:20; Start 08/20/18 at 21:00 Oxycodone/ Acetaminophen (Percocet 10/325) 1 tab PRN Q6HRS PRN PO PAIN; Start 08/20/18 at 10:45 Hydrochlorothiazide (Hydrodiuril) 25 mg DAILY PO ; Start 08/20/18 at 11:00; Stop 08/20/18 at 12:53; Status DC Polyethylene Glycol (miraLAX PACKET) 17 gm DAILY PO ; Start 08/20/18 at 11:00; Stop 08/21/18 at 15:29; Status DC Spironolactone (Aldactone) 25 mg DAILY PO ; Start 08/20/18 at 12:00; Stop 08/20/18 at 12:53; Status DC Warfarin Sodium (Coumadin) 5 mg 1X WARF ONCE PO Last administered on 08/20/18at 18:51; Start 08/20/18 at 16:00; Stop 08/20/18 at 16:01; Status DC Potassium Chloride/Dextrose/ Sod Cl 1,000 ml @ 75 mls/hr [id number] IV Last administered on 08/23/18at 08:26; Start 08/20/18 at 11:00; Stop 08/24/18 at 09:08; Status DC Warfarin Sodium (Coumadin Per Pharmacy) 1 each PRN DAILY PRN MC SEE COMMENTS Last administered on 08/21/18at 10:35; Start 08/20/18 at 12:00; Stop 08/21/18 at 10:57; Status DC Clonidine HCl (Catapres Tts-2) 1 patch We TD Last administered on 08/20/18at 13:56; Start 08/20/18 at 13:00 Ondansetron HCl (Zofran) 4 mg PRN Q8HRS PRN IV NAUSEA/VOMITING Last adminis tered on 08/21/18at 09:04; Start 08/20/18 at 13:15; Stop 08/21/18 at 11:00; Status DC Hydralazine HCl (Apresoline Inj) 10 mg PRN Q2HRS PRN IVP ELEVATED BP, 1ST CHOICE Last administered on 08/22/18at 15:45; Start 08/20/18 at 18:15 Amlodipine Besylate (Norvasc) 5 mg DAILY PO ; Start 08/21/18 at 09:00; Status UNV Amlodipine Besylate (Norvasc) 10 mg DAILY PO Last administered on 08/25/18at 08:20; Start 08/22/18 at 09:00 Amlodipine Besylate (Norvasc) 5 mg 1X ONCE PO Last administered on 08/21/18at 11:19; Start 08/21/18 at 10:15; Stop 08/21/18 at 10:16; Status DC Warfarin Sodium (Coumadin - No Dose Today) 1 each 1X WARF ONCE MC ; Start 08/21/18 at 16:00; Stop 08/21/18 at 16:01; Status DC Phytonadione (Vitamin K Ampule) 5 mg 1X ONCE SQ Last administered on 08/21/18at 11:19; Start 08/21/18 at 11:00; Stop 08/21/18 at 11:07; Status DC Ondansetron HCl (Zofran) 4 mg PRN Q6HRS PRN IV NAUSEA/VOMITING, 1ST CHOICE Last administered on 08/22/18at 05:57; Start 08/21/18 at 11:00 Prochlorperazine Edisylate (Compazine) 10 mg PRN Q6HRS PRN IV NAUSEA/VOMITING, 2ND CHOICE Last administered on 08/22/18at 07:41; Start 08/21/18 at 11:00 Fentanyl Citrate (Fentanyl 2ml Vial) 50 mcg PRN Q2HR PRN IV SEVERE PAIN; Start 08/21/18 at 11:00 Multi-Ingredient Mouthwash/Gargle (Gi Cocktail) 20 ml PRN QID PRN PO CHEST PAIN; Start 08/21/18 at 11:00 Polyethylene Glycol (miraLAX PACKET) 17 gm BID PO Last administered on 08/25/18at 08:19; Start 08/21/18 at 21:00 Carvedilol (Coreg) 25 mg BIDWMEALS PO Last administered on 08/24/18at 08:21; Start 08/22/18 at 17:00; Stop 08/24/18 at 10:26; Status DC Carvedilol (Coreg) 12.5 mg 1X ONCE PO ; Start 08/22/18 at 12:45; Stop 08/22/18 at 12:46; Status DC Bisacodyl (Dulcolax Supp) 10 mg 1X ONCE ME Last administered on 08/22/18at 15:36; Start 08/22/18 at 15:00; Stop 08/22/18 at 15:03; Status DC Albuterol/ Ipratropium (Duoneb) 3 ml RTQID NEB Last administered on 08/25/18at 07:30; Start 08/22/18 at 22:00 Metoclopramide HCl (Reglan) 10 mg TIDAC PO Last administered on 08/24/18at 08:19; Start 08/23/18 at 09:00; Stop 08/24/18 at 11:40; Status DC Warfarin Sodium (Coumadin Per Pharmacy) 1 each PRN DAILY PRN MC SEE COMMENTS Last administered on 08/24/18at 09:32; Start 08/23/18 at 10:15 Warfarin Sodium (Coumadin) 4 mg 1X WARF ONCE PO Last administered on 08/23/18at 16:47; Start 08/23/18 at 16:00; Stop 08/23/18 at 16:01; Status DC Pantoprazole Sodium (Protonix) 40 mg DAILYAC PO Last administered on 08/25/18at 08:19; Start 08/24/18 at 07:30 Warfarin Sodium (Coumadin) 5 mg 1X WARF ONCE PO Last administered on 08/24/18at 16:46; Start 08/24/18 at 16:00; Stop 08/24/18 at 16:01; Status DC Labetalol HCl (Trandate) 200 mg BID PO Last administered on 08/25/18at 08:21; Start 08/24/18 at 21:00 Metoclopramide HCl (Reglan) 5 mg PRN TID PRN PO NAUSEA/VOMITING; Start 08/24/18 at 11:45 Active Scripts Active Reported Spironolactone 25 Mg Tablet 1 Tab PO BID PRN Warfarin Sodium 5 Mg Tablet 5 Mg PO DAILY Miralax (Polyethylene Glycol 3350) 17 Gm Powd.pack 1 Packet PO DAILY Percocet 10-325 Mg Tablet (Oxycodone/Acetaminophen) 1 Each Tablet 1 Tab PO PRN Q6HRS PRN Metoprolol Tartrate 50 Mg Tablet 1 Tab PO BID Metformin Hcl 500 Mg Tablet 500 Mg PO BIDWMEALS Lisinopril 20 Mg Tablet 1 Tab PO BID Hydrochlorothiazide Tablet (Hydrochlorothiazide) 12.5 Mg Tablet 25 Mg PO DAILY Docusate Sodium 100 Mg Capsule 1 Cap PO BID Clonidine Hcl 0.3 Mg Tablet 1 Tab PO QHS Vitamin D3 (Cholecalciferol (Vitamin D3)) 1,000 Unit Tablet 1 Tab PO DAILY [calcium] Wellbutrin Sr (Bupropion Hcl) 150 Mg Tablet.er 1 Tab PO BID Atorvastatin Calcium 40 Mg Tablet 40 Mg PO HS Aspir-Low (Aspirin) 81 Mg Tablet.dr 1 Tab PO DAILY Proventil Hfa Inhaler (Albuterol Sulfate) 6.7 Gm Hfa.aer.ad 2 Puff IH PRN Q4HRS PRN Vitals/I & O Vital Sign - Last 24 Hours 08/24/18 08/24/18 08/24/18 08/24/18 11:13 12:08 12:50 15:00 Temp 98.0 98.2 98.1 98.0 98.2 98.1 Pulse 62 62 65 Resp 16 16 B/P (MAP) 112/48 (69) 132/69 (90) 163/79 (107) Pulse Ox 97 99 96 O2 Delivery Room Air Room Air Room Air Room Air 08/24/18 08/24/18 08/24/18 08/24/18 16:07 19:00 20:00 20:34 Temp 98.1 98.1 Pulse 69 69 Resp 16 B/P (MAP) 139/85 (103) 139/85 Pulse Ox 99 O2 Delivery Room Air Room Air Room Air 08/24/18 08/24/18 08/24/18 08/25/18 20:38 20:40 23:00 03:00 Temp 98.0 97.8 98.0 97.8 Pulse 69 63 56 Resp 16 16 B/P (MAP) 139/85 161/78 (105) 156/79 (104) Pulse Ox 92 94 O2 Delivery Room Air Room Air Room Air 08/25/18 08/25/18 08/25/18 08/25/18 07:31 08:20 08:20 08:21 Pulse 60 60 60 B/P (MAP) 157/82 157/82 157/82 Pulse Ox 99 O2 Delivery Room Air Intake and Output 08/24/18 08/24/18 08/25/18 15:00 23:00 07:00 Intake Total 200 ml Output Total 0 ml Balance 200 ml 0 ml FREDDIE HELLER MD Aug 25, 2018 10:22
--- NOTE | 2018-08-25 11:38 | PDOC ---
Subjective: Subjective: Says she feels better. Denies n/v and abd pain. Hasn't stooled. Tolerating diet. Objective: Objective: Has [place] ordered PRN. Vital Signs: Vital Signs Date Time Temp Pulse Resp B/P (MAP) Pulse Ox O2 Delivery O2 Flow Rate FiO2 08/25/18 11:26 100 Room Air 08/25/18 08:21 60 157/82 08/25/18 03:00 97.8 16 97.8 Imaging: GES 08/22 At 4 hours activity is 54%, normal is 0 to 10%. Impression: Delayed gastric emptying. Renal Artery Duplex 08/22 pending PE: GEN: NAD - up to chair, looks better LUNGS: CTAB HEART: RRR ABD: NABS, S/ND/NT NEURO/PSYCH: A & O 3 - more responsive/talkative A/P: Delayed gastric emptying Confusion, HTN - better -- Improved. Previously advised low fiber/fat diet, small frequent meals. Continue PPI and Miralax - apparently no results from suppository, will try PO Dulcolax. PEDRO JONES Aug 25, 2018 11:38
[2018-08-25] MEDS ORDERED: BISACODYL 5 MG TABLET.DR. PO ONE (12:00)
--- NOTE | 2018-08-25 12:38 | RAD ---
Bilateral deep Doppler renal ultrasound, 08/22/2018: HISTORY: Hypertension Duplex evaluation of the main renal arteries was attempted including grayscale, color-flow and spectral Doppler analysis. The origins of the renal arteries from the aorta were not clearly visualized due to overlying bowel gas. On the right, peak systolic velocity in the mid right renal artery is 137 cm/s and in the distal right renal artery is 58 cm/s. No parvus/tardus phenomena is seen. On the left, the peak systolic velocity in the mid left renal artery is 75 cm/s and in the distal left renal artery is 64 cm/s. No parvus/tardus phenomena is seen. Both renal veins are patent. The right kidney measures 9.8 cm in length while the left kidney measures 10.7 cm. IMPRESSION: No duplex evidence of significant renal artery stenosis, although the renal artery origins could not be adequately visualized on either side. Electronically signed by: Grady Monae MD (08/25/2018 12:35 PM) [facility]
--- NOTE | 2018-08-25 14:09 | NUR ---
GENESIS following for discharge planning. Discussed with RN, pt lives in a retirement apartment. PT/OT recommending SNU, GENEISS met with pt to discuss, pt requested SW contact her granddaughter, Natalie ([phone]). GENESIS met with Natalie, Natalie requested list of facilities in the area and near and wanted to check to decide which one she wanted pt to go to. GENESIS provided [facility], [place], [facility], [facility]. Natalie advised SW she wants referral to be sent to [facility]. GENEISS left voicemail for the facility to determine bed availability. Natalie's second choice is [facility]. GENESIS will continue to follow.
--- NOTE | 2018-08-25 14:49 | NUR ---
Pharmacy Warfarin Dosing Note S:Pharmacy consulted to assist with anticoagulation therapy started with target INR: 2 -3 O:GIBRAN ALVAREZ is a 73 year old F with DVT/PE LABS: Last INR: 1.4 Last HGB: 14.0 Last HCT: 41.7 Last PLT: 136 Last dose of 5 mg given on 08/24/18 at 1646 Previous Regimen: Vitamin K given: Y ON ADMISSION Drug Interaction Changes: Ongoing Drug Interactions: ASA A:INR of 1.4 is below desired range. Target range for this patient is: 2 -3 P: Warfarin dose: 6 mg Today at 1600. Bridge Therapy: None Next INR due tomorrow. Pharmacy anticoagulation service will continue to follow. Jacob Ordaz [facility], 08/25/18 [id number]
[2018-08-25] MEDS ORDERED: WARFARIN 3 MG TABLET. PO ONE (16:00)
--- NOTE | 2018-08-25 16:26 | NUR ---
SW following. [facility] advised SW they cannot accept pt due to cognition. SW to fax referral to [facility] as pt's granddaughters second choice. SW will continue to follow.
--- NOTE | 2018-08-25 17:18 | NUR ---
Pt and her granddaughter Natalie discussing need for EGD, Natalie is unsure if procedure is necessary at this time and would like to discuss this with pt before signing consents. Both pt and granddaughter have many questions re: the procedure and the need for it. This nurse explained to the best of her knowledge but advised that they think about and possible speak with the provider before agreeing to it. They will notify me or night nurse if pt will agree with to get procedure in the am.
[2018-08-25] MEDS: ATORVASTATIN CALCIUM 40 MG TABLET. PO SCH (21:53)
[2018-08-26] VITALS (10 sets, daily range): BP systolic 117–180; BP diastolic 76–97
[2018-08-26 04:43] LABS: PROTHROMBIN TIME PATIENT 17.2 SEC (11.7-14.0)
[2018-08-26] MEDS ORDERED: MORPHINE SULFATE 2 MG/ML VIAL. IV PRN (07:00)
[2018-08-26] MEDS ORDERED: HYDROmorphone 2 MG/ML VIAL IV PRN (07:00)
[2018-08-26] MEDS ORDERED: LIDOCAINE 1% PF 2 ML VIAL. ID PRN (07:00)
[2018-08-26] MEDS ORDERED: ONDANSETRON PF 4 MG/2 ML VIAL. IV PRN (07:00)
[2018-08-26] MEDS ORDERED: IV RINGERS,LACTATED 1000ML 1,000 ML IV SCH (07:00)
[2018-08-26] MEDS ORDERED: fentaNYL PF VIAL 100 MCG/2 ML VIAL IV PRN ×2 (07:00)
[2018-08-26] MEDS: PANTOPRAZOLE 40 MG TABLET.DR. PO SCH ×2 (07:30→14:03)
[2018-08-26] MEDS: IPRATRPIUM/ALBUTEROL 0.5/2.5MG 3 ML NEBU. NEB SCH ×4 (07:35→20:01)
[2018-08-26] MEDS: POLYETHYLENE GLYCOL 3350 17 GM PACKET. PO SCH ×2 (09:00→20:44)
[2018-08-26] MEDS ORDERED: PROPOFOL 20 ML IV ONE (11:51)
[2018-08-26] MEDS ORDERED: LIDOCAINE 2% PF 5 ML VIAL. ONE (11:51)
[2018-08-26] MEDS ORDERED: ePHEDrine PF IN SALINE 50 MG/10 ML SYRINGE. IV ONE (12:00)
--- NOTE | 2018-08-26 12:09 | NUR ---
pt left for EGD at 1042
--- NOTE | 2018-08-26 12:22 | NUR ---
SW following. Discussed with RN, pt having an EGD today. [facility] checking medication pricing before clinically accepting. Will also need Insurance approval for pt to go to SNU. GENESIS will continue to follow.
--- NOTE | 2018-08-26 13:18 | PDOC ---
PROGRESS NOTES Chief Complaint Chief Complaint IMPRESSION 1. GASTROPARESIS - NEW Dx - DELAYED GET - 08/22/18, NOT IMPROVED 2. Abdominal pain/n/v,some hematemesis - the latter resolved 3. LONG standing DM 4. Accelerated HTN: likely sec to constant retching - crads has made adjustments today 08/24/18 5. HLP 6. Hx of CVA 7. 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 CORINNE 9. Obesity BMI 42 10. Supra Therapeutic INR with mild hematemesis nOW SUBTHERAPEUTIC 11. HYpokalemia sec to emesis and poor po - CORRECTED 12. reported dysphagia plan EGD IN AM low fiber/fat diet, small frequent meals. Continue PPI and Miralax - apparently no results from suppot ST Swallow screen GI CONSULTED History of Present Illness History of Present Illness Second day that she is much better in terms of the nausea an GET is abN - delayed Initially had INR of 4 with some hematemesis with vomiting-initially planned for EGD but that did not push through hence got vitamin K and Coumadin was on hold Now INR 1.4. Needs to be on lifetime Coumadin for DVT PE history blood pressure on the high side,-I have discussed with cardiology, they made adjustments today grand daughter at bedside had a lot of questions and we have provided appropriate answers to her content and provided even copies of her tests Plan Okay transfer out of [facility] to a nonmonitored bed Continue blood pressure checks every 4 which is protocol on the floors Warfarin per pharmacy She did get 4 mg of warfarin yesterday and INR is today 1.4 INR check tomorrow PT recommended SNU and granddaughter agreeable Consult social work DC K containing IVF as potassium is already normal and she is starting by mouth intake Possibly home tomorrow with new blood pressure regimen to SNU Full code Vitals Vitals Vital Signs Date Time Temp Pulse Resp B/P (MAP) Pulse Ox O2 Delivery O2 Flow Rate FiO2 08/26/18 12:58 63 16 126/78 97 Room Air 08/26/18 12:26 97.0 97.0 Physical Exam General: Alert, Oriented X3, Cooperative, No acute distress, mild distress Heart: Regular rate (Sr no ectopies), Normal S1, Normal S2, No murmurs Lungs: Clear Abdomen: Soft, No tenderness Extremities: No cyanosis, No edema Skin: No breakdown, No significant lesion Labs LABS Laboratory Tests Test 08/26/18 02:50 Prothrombin Time 17.2 SEC (11.7-14.0) Prothromb Time International Ratio 1.4 (0.8-1.1) Assessment and Plan Assessmemt and Plan Problems Medical Problems: (1) Diarrhea Status: Acute (2) Elevated serum creatinine Status: Acute (3) Hypertension Status: Acute (4) Vomiting Status: Acute Comment Review of Relevant I have reviewed the following items grady (where applicable) has been applied. Labs Laboratory Tests Test 08/25/18 05:22 08/26/18 02:50 Prothrombin Time 16.6 SEC (11.7-14.0) 17.2 SEC (11.7-14.0) Prothromb Time International Ratio 1.4 (0.8-1.1) 1.4 (0.8-1.1) Laboratory Tests Test 08/26/18 02:50 Prothrombin Time 17.2 SEC (11.7-14.0) Prothromb Time International Ratio 1.4 (0.8-1.1) Medications Current Medications Ondansetron HCl (Zofran) 4 mg 1X ONCE IM Last administered on 08/19/18at 13:58; Start 08/19/18 at 14:00; Stop 08/19/18 at 14:01; Status DC Sodium Chloride 1,000 ml @ 1,000 mls/hr 1X ONCE IV Last administered on 08/19/18at 14:42; Start 08/19/18 at 14:30; Stop 08/19/18 at 15:29; Status DC Ondansetron HCl (Zofran) 4 mg PRN Q8HRS PRN IV NAUSEA/VOMITING Last administered on 08/20/18at 12:59; Start 08/19/18 at 15:45; Stop 08/20/18 at 15:44; Status DC Morphine Sulfate (Morphine Sulfate) 2 mg PRN Q2HR PRN IV PAIN; Start 08/19/18 at 15:45; Stop 08/20/18 at 15:44; Status DC Hydralazine HCl (Apresoline Inj) 10 mg 1X ONCE IVP Last administered on 08/19/18at 17:25; Start 08/19/18 at 17:15; Stop 08/19/18 at 17:17; Status DC Metoclopramide HCl (Reglan Vial) 10 mg 1X ONCE IV Last administered on 08/19/18at 18:32; Start 08/19/18 at 18:15; Stop 08/19/18 at 18:16; Status DC Amlodipine Besylate (Norvasc) 5 mg 1X ONCE PO ; Start 08/19/18 at 19:30; Stop 08/19/18 at 19:31; Status DC Amlodipine Besylate (Norvasc) 5 mg DAILY PO Last administered on 08/21/18at 09:00; Start 08/20/18 at 09:00; Stop 08/21/18 at 10:05; Status DC Lisinopril (Prinivil) 20 mg DAILY PO Last administered on 08/20/18at 09:09; Start 08/20/18 at 09:00; Stop 08/20/18 at 10:45; Status DC Lisinopril (Prinivil) 20 mg 1X ONCE PO ; Start 08/19/18 at 19:30; Stop 08/19/18 at 19:31; Status DC Enoxaparin Sodium (Lovenox Per Pharmacy Prophylaxis Dosing) 1 each PRN DAILY PRN MC SEE COMMENTS; Start 08/19/18 at 20:15; Stop 08/20/18 at 11:44; Status DC Enoxaparin Sodium (Lovenox 40mg Syringe) 40 mg Q12H SQ Last administered on 08/19/18at 21:31; Start 08/19/18 at 21:00; Stop 08/20/18 at 11:44; Status DC Clonidine HCl (Catapres Tts-1) 1 patch WEEKLY TD Last administered on 08/19/18at 21:30; Start 08/19/18 at 21:00; Stop 08/20/18 at 11:33; Status DC Pantoprazole Sodium (PROTONIX VIAL for IV PUSH) 40 mg BIDAC IVP Last administered on 08/23/18at 08:09; Start 08/20/18 at 09:00; Stop 08/23/18 at 16:22; Status DC Carvedilol (Coreg) 12.5 mg BIDWMEALS PO Last administered on 08/22/18at 08:52; Start 08/20/18 at 10:30; Stop 08/22/18 at 12:42; Status DC Labetalol HCl (Normodyne Iv Push) 20 mg PRN Q2HR PRN IVP HYPERTENSION, 2ND CHOICE Last administered on 08/20/18at 14:18; Start 08/20/18 at 10:15 Aspirin (Ecotrin) 81 mg DAILY PO Last administered on 08/25/18at 08:20; Start 08/20/18 at 11:00 Atorvastatin Calcium (Lipitor) 40 mg HS PO Last administered on 08/25/18 21:53; Start 08/20/18 at 21:00 Bupropion HCl (Wellbutrin Sr) 150 mg BID PO Last administered on 08/25/18 21:52; Start 08/20/18 at 21:00 Vitamin D (Vitamin D3) 1,000 unit DAILY PO ; Start 08/20/18 at 11:00; Stop 08/20/18 at 12:53; Status DC Clonidine HCl (Catapres) 0.3 mg QHS PO ; Start 08/20/18 at 21:00; Stop 08/20/18 at 21:00; Status DC Docusate Sodium (Colace) 100 mg BID PO Last administered on 08/25/18at 21:53; Start 08/20/18 at 11:00 Lisinopril (Prinivil) 20 mg BID PO Last administered on 08/25/18 21:52; Start 08/20/18 at 21:00 Oxycodone/ Acetaminophen (Percocet 10/325) 1 tab PRN Q6HRS PRN PO PAIN Last administered on 08/25/18 21:52; Start 08/20/18 at 10:45 Hydrochlorothiazide (Hydrodiuril) 25 mg DAILY PO ; Start 08/20/18 at 11:00; Stop 08/20/18 at 12:53; Status DC Polyethylene Glycol (miraLAX PACKET) 17 gm DAILY PO ; Start 08/20/18 at 11:00; Stop 08/21/18 at 15:29; Status DC Spironolactone (Aldactone) 25 mg DAILY PO ; Start 08/20/18 at 12:00; Stop 08/20/18 at 12:53; Status DC Warfarin Sodium (Coumadin) 5 mg 1X WARF ONCE PO Last administered on 08/20/18at 18:51; Start 08/20/18 at 16:00; Stop 08/20/18 at 16:01; Status DC Potassium Chloride/Dextrose/ Sod Cl 1,000 ml @ 75 mls/hr [id number] IV Last administered on 08/23/18 08:26; Start 08/20/18 at 11:00; Stop 08/24/18 at 09:08; Status DC Warfarin Sodium (Coumadin Per Pharmacy) 1 each PRN DAILY PRN MC SEE COMMENTS Last administered on 08/21/18at 10:35; Start 08/20/18 at 12:00; Stop 08/21/18 at 10:57; Status DC Clonidine HCl (Catapres Tts-2) 1 patch We TD Last administered on 08/20/18at 13:56; Start 08/20/18 at 13:00 Ondansetron HCl (Zofran) 4 mg PRN Q8HRS PRN IV NAUSEA/VOMITING Last administered on 08/21/18 09:04; Start 08/20/18 at 13:15; Stop 08/21/18 at 11:00; Status DC Hydralazine HCl (Apresoline Inj) 10 mg PRN Q2HRS PRN IVP ELEVATED BP, 1ST CHOICE Last administered on 08/22/18at 15:45; Start 08/20/18 at 18:15 Amlodipine Besylate (Norvasc) 5 mg DAILY PO ; Start 08/21/18 at 09:00; Status UNV Amlodipine Besylate (Norvasc) 10 mg DAILY PO Last administered on 08/25/18at 08:20; Start 08/22/18 at 09:00 Amlodipine Besylate (Norvasc) 5 mg 1X ONCE PO Last administered on 08/21/18at 11:19; Start 08/21/18 at 10:15; Stop 08/21/18 at 10:16; Status DC Warfarin Sodium (Coumadin - No Dose Today) 1 each 1X WARF ONCE MC ; Start 08/21/18 at 16:00; Stop 08/21/18 at 16:01; Status DC Phytonadione (Vitamin K Ampule) 5 mg 1X ONCE SQ Last administered on 08/21/18at 11:19; Start 08/21/18 at 11:00; Stop 08/21/18 at 11:07; Status DC Ondansetron HCl (Zofran) 4 mg PRN Q6HRS PRN IV NAUSEA/VOMITING, 1ST CHOICE Last administered on 08/22/18 05:57; Start 08/21/18 at 11:00 Prochlorperazine Edisylate (Compazine) 10 mg PRN Q6HRS PRN IV NAUSEA/VOMITING, 2ND CHOICE Last administered on 08/22/18 07:41; Start 08/21/18 at 11:00 Fentanyl Citrate (Fentanyl 2ml Vial) 50 mcg PRN Q2HR PRN IV SEVERE PAIN; Start 08/21/18 at 11:00 Multi-Ingredient Mouthwash/Gargle (Gi Cocktail) 20 ml PRN QID PRN PO CHEST PAIN; Start 08/21/18 at 11:00 Polyethylene Glycol (miraLAX PACKET) 17 gm BID PO Last administered on 08/25/18 21:51; Start 08/21/18 at 21:00 Carvedilol (Coreg) 25 mg BIDWMEALS PO Last administered on 08/24/18 08:21; Start 08/22/18 at 17:00; Stop 08/24/18 at 10:26; Status DC Carvedilol (Coreg) 12.5 mg 1X ONCE PO ; Start 08/22/18 at 12:45; Stop 08/22/18 at 12:46; Status DC Bisacodyl (Dulcolax Supp) 10 mg 1X ONCE WA Last administered on 08/22/18 15:36; Start 08/22/18 at 15:00; Stop 08/22/18 at 15:03; Status DC Albuterol/ Ipratropium (Duoneb) 3 ml RTQID NEB Last administered on 08/26/18 07:35; Start 08/22/18 at 22:00 Metoclopramide HCl (Reglan) 10 mg TIDAC PO Last administered on 08/24/18 08:19; Start 08/23/18 at 09:00; Stop 08/24/18 at 11:40; Status DC Warfarin Sodium (Coumadin Per Pharmacy) 1 each PRN DAILY PRN MC SEE COMMENTS Last administered on 08/25/18 14:48; Start 08/23/18 at 10:15 Warfarin Sodium (Coumadin) 4 mg 1X WARF ONCE PO Last administered on 08/23/18 16:47; Start 08/23/18 at 16:00; Stop 08/23/18 at 16:01; Status DC Pantoprazole Sodium (Protonix) 40 mg DAILYAC PO Last administered on 08/25/18at 08:19; Start 08/24/18 at 07:30; Stop 08/26/18 at 12:52; Status DC Warfarin Sodium (Coumadin) 5 mg 1X WARF ONCE PO Last administered on 08/24/18at 16:46; Start 08/24/18 at 16:00; Stop 08/24/18 at 16:01; Status DC Labetalol HCl (Trandate) 200 mg BID PO Last administered on 08/25/18at 21:53; Start 08/24/18 at 21:00 Metoclopramide HCl (Reglan) 5 mg PRN TID PRN PO NAUSEA/VOMITING; Start 08/24/18 at 11:45 Bisacodyl (Dulcolax Tab) 10 mg 1X ONCE PO Last administered on 08/25/18at 14:04; Start 08/25/18 at 12:00; Stop 08/25/18 at 12:01; Status DC Warfarin Sodium (Coumadin) 6 mg 1X WARF ONCE PO Last administered on 08/25/18at 16:46; Start 08/25/18 at 16:00; Stop 08/25/18 at 16:01; Status DC Ondansetron HCl (Zofran) 4 mg PRN Q6HRS PRN IV NAUSEA/VOMITING; Start 08/26/18 at 07:00; Stop 08/27/18 at 06:59 Fentanyl Citrate (Fentanyl 2ml Vial) 25 mcg PRN Q5MIN PRN IV MILD PAIN; Start 08/26/18 at 07:00; Stop 08/27/18 at 06:59 Fentanyl Citrate (Fentanyl 2ml Vial) 50 mcg PRN Q5MIN PRN IV MODERATE TO SEVERE PAIN; Start 08/26/18 at 07:00; Stop 08/27/18 at 06:59 Morphine Sulfate (Morphine Sulfate) 1 mg PRN Q10MIN PRN IV SEVERE PAIN; Start 08/26/18 at 07:00; Stop 08/27/18 at 06:59 Ringer's Solution 1,000 ml @ 30 mls/hr Q24H IV ; Start 08/26/18 at 07:00; Stop 08/26/18 at 18:59 Lidocaine HCl (Xylocaine-Mpf 1% 2ml Vial) 2 ml PRN 1X PRN ID IV START; Start 08/26/18 at 07:00; Stop 08/27/18 at 06:59 Hydromorphone HCl (Dilaudid) 0.5 mg PRN Q10MIN PRN IV SEV PAIN, Second choice; Start 08/26/18 at 07:00; Stop 08/27/18 at 06:59 Propofol 20 ml @ As Directed STK-MED ONCE IV ; Start 08/26/18 at 11:51; Stop 08/26/18 at 11:52; Status DC Lidocaine HCl (Lidocaine Pf 2% Vial) 5 ml STK-MED ONCE .ROUTE ; Start 08/26/18 at 11:51; Stop 08/26/18 at 11:52; Status DC Pantoprazole Sodium (Protonix) 40 mg BIDAC PO ; Start 08/26/18 at 16:30 Active Scripts Active Reported Spironolactone 25 Mg Tablet 1 Tab PO BID PRN Warfarin Sodium 5 Mg Tablet 5 Mg PO DAILY Miralax (Polyethylene Glycol 3350) 17 Gm Powd.pack 1 Packet PO DAILY Percocet 10-325 Mg Tablet (Oxycodone/Acetaminophen) 1 Each Tablet 1 Tab PO PRN Q6HRS PRN Metoprolol Tartrate 50 Mg Tablet 1 Tab PO BID Metformin Hcl 500 Mg Tablet 500 Mg PO BIDWMEALS Lisinopril 20 Mg Tablet 1 Tab PO BID Hydrochlorothiazide Tablet (Hydrochlorothiazide) 12.5 Mg Tablet 25 Mg PO DAILY Docusate Sodium 100 Mg Capsule 1 Cap PO BID Clonidine Hcl 0.3 Mg Tablet 1 Tab PO QHS Vitamin D3 (Cholecalciferol (Vitamin D3)) 1,000 Unit Tablet 1 Tab PO DAILY [calcium] Wellbutrin Sr (Bupropion Hcl) 150 Mg Tablet.er 1 Tab PO BID Atorvastatin Calcium 40 Mg Tablet 40 Mg PO HS Aspir-Low (Aspirin) 81 Mg Tablet.dr 1 Tab PO DAILY Proventil Hfa Inhaler (Albuterol Sulfate) 6.7 Gm Hfa.aer.ad 2 Puff IH PRN Q4HRS PRN Vitals/I & O Vital Sign - Last 24 Hours 08/25/18 08/25/18 08/25/18 08/25/18 15:00 15:51 17:22 19:40 Temp 98.4 98.4 98.2 98.4 98.4 98.2 Pulse 77 77 63 Resp 20 20 16 B/P (MAP) 137/81 (99) 137/81 (99) 156/83 (107) Pulse Ox 94 94 98 O2 Delivery Room Air Room Air Room Air Room Air 08/25/18 08/25/18 08/25/18 08/25/18 20:00 20:25 21:52 21:52 Pulse 63 Resp 18 B/P (MAP) 156/83 Pulse Ox 98 O2 Delivery Room Air Room Air Room Air 08/25/18 08/25/18 08/25/18 08/26/18 21:53 22:52 23:00 02:59 Temp 97.8 98.2 97.8 98.2 Pulse 63 76 72 Resp 18 20 20 B/P (MAP) 156/83 114/77 (89) 164/95 (118) Pulse Ox 98 96 97 O2 Delivery Room Air Room Air Room Air 08/26/18 08/26/18 08/26/18 08/26/18 07:00 07:37 08:00 12:26 Temp 98.1 97.0 98.1 97.0 Pulse 62 56 Resp 16 16 B/P (MAP) 142/76 (98) 95/54 Pulse Ox 96 98 94 O2 Delivery Room Air Room Air Room Air Room Air 08/26/18 08/26/18 08/26/18 12:40 12:49 12:58 Pulse 73 61 63 Resp 16 16 16 B/P (MAP) 119/74 119/76 126/78 Pulse Ox 97 95 97 O2 Delivery Room Air Room Air Room Air Intake and Output 08/25/18 08/25/18 08/26/18 15:00 23:00 07:00 Intake Total 587 ml 0 ml Balance 587 ml 0 ml FREDDIE HELLER MD Aug 26, 2018 13:18
[2018-08-26] MEDS: ASPIRIN ENTERIC COATED 81 MG TABLET.DR. PO SCH (14:03)
[2018-08-26] MEDS: LISINOPRIL 20 MG TABLET PO SCH ×2 (14:03→20:51)
[2018-08-26] MEDS: buPROPion SR 150 MG TABLET.SA PO SCH ×2 (14:03→20:44)
[2018-08-26] MEDS: amLODIPine BESYLATE 5 MG TABLET PO SCH (14:04)
[2018-08-26] MEDS: DOCUSATE SODIUM 100 MG CAPSULE. PO SCH ×2 (14:04→20:44)
[2018-08-26] MEDS: LABETALOL HCL 200 MG TABLET PO SCH ×2 (14:04→20:52)
[2018-08-26] MEDS ORDERED: WARFARIN 7.5 MG TABLET. PO ONE (16:00)
--- NOTE | 2018-08-26 17:23 | NUR ---
pt returned to floor at 1315 via gurney from [facility] in stable condition. pt is alert and oriented. pt is not complaining of any pain at this time. frequent vital signs set up. will continue to monitor. Addendum: 08/26/18 at 1724 by NAIMA GARCIA RN RN received report from SHYLA Thornton in outpatient
[2018-08-26 18:10] LABS: ANA INTERP Positive (.)
[2018-08-26] MEDS: ATORVASTATIN CALCIUM 40 MG TABLET. PO SCH (20:56)
[2018-08-27 03:00] VITALS: BP 140/73
[2018-08-27] MEDS: PANTOPRAZOLE 40 MG TABLET.DR. PO SCH ×2 (05:58→17:54)
[2018-08-27 07:00] VITALS: BP 160/91
[2018-08-27] MEDS: IPRATRPIUM/ALBUTEROL 0.5/2.5MG 3 ML NEBU. NEB SCH ×4 (07:53→20:00)
[2018-08-27] MEDS: POLYETHYLENE GLYCOL 3350 17 GM PACKET. PO SCH ×2 (08:39→20:42)
[2018-08-27] MEDS: DOCUSATE SODIUM 100 MG CAPSULE. PO SCH ×2 (08:40→20:43)
[2018-08-27] MEDS: buPROPion SR 150 MG TABLET.SA PO SCH ×2 (08:40→20:43)
[2018-08-27] MEDS: ASPIRIN ENTERIC COATED 81 MG TABLET.DR. PO SCH (08:40)
[2018-08-27] MEDS: LABETALOL HCL 200 MG TABLET PO SCH ×2 (08:40→20:43)
[2018-08-27] MEDS: amLODIPine BESYLATE 5 MG TABLET PO SCH (08:41)
[2018-08-27] MEDS: LISINOPRIL 20 MG TABLET PO SCH ×2 (08:41→20:43)
--- NOTE | 2018-08-27 09:22 | PDOC ---
Subjective: Subjective: Tolerating PO, no abd pain, still hasn't stooled. Objective: Objective: D/w Dr. Yeung yesterday - inflammation and congestion in pre-pyloric and duodenum on EGD - biopsies pending. Vital Signs: Vital Signs Date Time Temp Pulse Resp B/P (MAP) Pulse Ox O2 Delivery O2 Flow Rate FiO2 08/27/18 08:44 Room Air 08/27/18 08:41 69 160/91 08/27/18 07:54 94 08/27/18 07:00 98.0 18 98.0 PE: GEN: NAD - sitting up, breakfast tray nearly empty LUNGS: CTAB HEART: RRR ABD: S/ND/NT NEURO/PSYCH: A & O 3 A/P: N/v - resolved Delayed gastric emptying Gastritis, duodenitis +MALATHI -- DC per primary on BID PPI and low fiber/fat diet. Continue Miralax - try Dulcolax again, will also add Amitiza. Consider Relistor w/ ongoing use of Percocet. Follow-up w/ Dr. Yeung in clinic re: biopsy results. PEDRO JONES August 27, 2018 09:22
[2018-08-27] MEDS ORDERED: BISACODYL 5 MG TABLET.DR. PO ONE (09:30)
--- NOTE | 2018-08-27 10:07 | NUR ---
GENESIS following for discharge planning. Discussed with RN, pt has been clinically accepted at [facility], pending insurance auth. [facility] requested pt bring inhaler from home, GENESIS met with pt to discuss - pt reported her son can bring it from home. GENESIS phoned pt's son, Kev ([phone]) to request pt's inhaler be brought to [facility], Kev agreed. GENESIS will continue to follow.
[2018-08-27] MEDS: LUBIPROSTONE 8 MCG CAPSULE PO SCH ×2 (10:40→17:54)
[2018-08-27 11:00] VITALS: BP 144/75
[2018-08-27 11:40] LABS: BASO % 0 % (0-3); EOS % 1 % (0-3); HEMATOCRIT 40.8 % (36.0-47.0); HEMOGLOBIN 13.4 g/dL (12.0-15.5); LYMPH # 0.8 x10^3/uL (1.0-4.8); LYMPH % 19 % (24-48); MEAN CORPUSCULAR HEMOGLOBIN 29 pg (25-35); MEAN CORPUSCULAR HGB CONC 33 g/dL (31-37); MEAN CORPUSCULAR VOLUME 88 fL (79-100); MONO # 0.4 x10^3/uL (0.0-1.1); MONO % 9 % (0-9); NEUT # 2.9 x10^3uL (1.8-7.7); NEUT % 71 % (31-73); PLATELET COUNT 131 x10^3/uL (140-400); RED BLOOD COUNT 4.65 x10^6/uL (3.50-5.40); RED CELL DISTRIBUTION WIDTH 13.6 % (11.5-14.5); WHITE BLOOD COUNT 4.1 x10^3/uL (4.0-11.0)
[2018-08-27 11:45] LABS: PROTHROMBIN TIME PATIENT 22.4 SEC (11.7-14.0)
[2018-08-27 12:03] LABS: ALBUMIN 3.1 g/dL (3.4-5.0); ALBUMIN/GLOBULIN RATIO 0.9 (1.0-1.7); CALCIUM 10.2 mg/dL (8.5-10.1); CREATININE 1.2 mg/dL (0.6-1.0); GFR 53.4; POTASSIUM 3.7 mmol/L (3.5-5.1); TOTAL BILIRUBIN 0.5 mg/dL (0.2-1.0); TOTAL PROTEIN 6.4 g/dL (6.4-8.2)
--- NOTE | 2018-08-27 12:16 | NUR ---
Pharmacy Warfarin Dosing Note S:Pharmacy consulted to assist with anticoagulation therapy started with target INR: 2 -3 O:GIBRAN ALVAREZ is a 73 year old F with DVT/PE LABS: Last INR: 2.0 Last HGB: 13.4 Last HCT: 40.8 Last PLT: 131 Last dose of 7.5 mg given on 08/26/18 at 1542 Previous Regimen: 5MKG/DAY Vitamin K given: Y ON ADMISSION Drug Interaction Changes: Ongoing Drug Interactions: ASA A:INR of 2.0 is within desired range. Target range for this patient is: 2 -3 P: Warfarin dose: 5 mg Today at 1600 Bridge Therapy: None Next INR due tomorrow. Pharmacy anticoagulation service will continue to follow. Jacob Ordaz [facility], 08/27/18 [id number]
--- NOTE | 2018-08-27 12:22 | PDOC ---
PROGRESS NOTES Chief Complaint Chief Complaint IMPRESSION 1. GASTROPARESIS - NEW Dx - DELAYED GET - 08/22/18, IMPROVED 2. Abdominal pain/n/v,some hematemesis - the latter resolved 3. LONG standing DM 4. Accelerated HTN: likely sec to constant retching - crads has made adjustments today 08/24/18 5. HLP 6. Hx of CVA 7. 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 CORINNE 9. Obesity BMI 42 10. Supra Therapeutic INR with mild hematemesis nOW SUBTHERAPEUTIC 11. HYpokalemia sec to emesis and poor po - CORRECTED 12. reported dysphagia plan EGD IN noted inflammation and congestion in pre-pyloric and duodenum on EGD - biopsies pending. low fiber/fat diet, small frequent meals. Continue PPI and Miralax - apparently no results from support ST Swallow screen GI CONSULTED d/c today to snf History of Present Illness History of Present Illness Second day that she is much better in terms of the nausea an GET is abN - delayed Initially had INR of 4 with some hematemesis with vomiting-initially planned for EGD but that did not push through hence got vitamin K and Coumadin was on hold Now INR 1.4. Needs to be on lifetime Coumadin for DVT PE history blood pressure on the high side,-I have discussed with cardiology, they made adjustments today grand daughter at bedside had a lot of questions and we have provided appropriate answers to her content and provided even copies of her tests Plan Okay transfer out of [facility] to a nonmonitored bed Continue blood pressure checks every 4 which is protocol on the floors Warfarin per pharmacy She did get 4 mg of warfarin yesterday and INR is today 1.4 INR check tomorrow PT recommended SNU and granddaughter agreeable Consult social work DC K containing IVF as potassium is already normal and she is starting by mouth intake Possibly home tomorrow with new blood pressure regimen to SNU Full code Vitals Vitals Vital Signs Date Time Temp Pulse Resp B/P (MAP) Pulse Ox O2 Delivery O2 Flow Rate FiO2 08/27/18 12:15 98 Room Air 08/27/18 11:00 97.9 60 18 144/75 (98) 97.9 Physical Exam General: Alert, Oriented X3, Cooperative, No acute distress Heart: Regular rate (Sr no ectopies), Normal S1, Normal S2, No murmurs Lungs: Clear Abdomen: Soft, No tenderness Extremities: No cyanosis, No edema Skin: No breakdown, No significant lesion Labs LABS Laboratory Tests Test 08/27/18 08:53 White Blood Count 4.1 x10^3/uL (4.0-11.0) Red Blood Count 4.65 x10^6/uL (3.50-5.40) Hemoglobin 13.4 g/dL (12.0-15.5) Hematocrit 40.8 % (36.0-47.0) Mean Corpuscular Volume 88 fL (79-100) Mean Corpuscular Hemoglobin 29 pg (25-35) Mean Corpuscular Hemoglobin Concent 33 g/dL (31-37) Red Cell Distribution Width 13.6 % (11.5-14.5) Platelet Count 131 x10^3/uL (140-400) Neutrophils (%) (Auto) 71 % (31-73) Lymphocytes (%) (Auto) 19 % (24-48) Monocytes (%) (Auto) 9 % (0-9) Eosinophils (%) (Auto) 1 % (0-3) Basophils (%) (Auto) 0 % (0-3) Neutrophils # (Auto) 2.9 x10^3uL (1.8-7.7) Lymphocytes # (Auto) 0.8 x10^3/uL (1.0-4.8) Monocytes # (Auto) 0.4 x10^3/uL (0.0-1.1) Eosinophils # (Auto) 0.0 x10^3/uL (0.0-0.7) Basophils # (Auto) 0.0 x10^3/uL (0.0-0.2) Prothrombin Time 22.4 SEC (11.7-14.0) Prothromb Time International Ratio 2.0 (0.8-1.1) Sodium Level 139 mmol/L (136-145) Potassium Level 3.7 mmol/L (3.5-5.1) Chloride Level 103 mmol/L (98-107) Carbon Dioxide Level 27 mmol/L (21-32) Anion Gap 9 (6-14) Blood Urea Nitrogen 15 mg/dL (7-20) Creatinine 1.2 mg/dL (0.6-1.0) Estimated GFR (Cockcroft-Gault) 53.4 BUN/Creatinine Ratio 13 (6-20) Glucose Level 132 mg/dL (70-99) Calcium Level 10.2 mg/dL (8.5-10.1) Total Bilirubin 0.5 mg/dL (0.2-1.0) Aspartate Amino Transf (AST/SGOT) 13 U/L (15-37) Alanine Aminotransferase (ALT/SGPT) 18 U/L (14-59) Alkaline Phosphatase 65 U/L (46-116) Total Protein 6.4 g/dL (6.4-8.2) Albumin 3.1 g/dL (3.4-5.0) Albumin/Globulin Ratio 0.9 (1.0-1.7) Assessment and Plan Assessmemt and Plan Problems Medical Problems: (1) Diarrhea Status: Acute (2) Elevated serum creatinine Status: Acute (3) Hypertension Status: Acute (4) Vomiting Status: Acute Comment Review of Relevant I have reviewed the following items grady (where applicable) has been applied. Labs Laboratory Tests Test 08/26/18 02:50 08/27/18 08:53 Prothrombin Time 17.2 SEC (11.7-14.0) 22.4 SEC (11.7-14.0) Prothromb Time International Ratio 1.4 (0.8-1.1) 2.0 (0.8-1.1) White Blood Count 4.1 x10^3/uL (4.0-11.0) Red Blood Count 4.65 x10^6/uL (3.50-5.40) Hemoglobin 13.4 g/dL (12.0-15.5) Hematocrit 40.8 % (36.0-47.0) Mean Corpuscular Volume 88 fL (79-100) Mean Corpuscular Hemoglobin 29 pg (25-35) Mean Corpuscular Hemoglobin Concent 33 g/dL (31-37) Red Cell Distribution Width 13.6 % (11.5-14.5) Platelet Count 131 x10^3/uL (140-400) Neutrophils (%) (Auto) 71 % (31-73) Lymphocytes (%) (Auto) 19 % (24-48) Monocytes (%) (Auto) 9 % (0-9) Eosinophils (%) (Auto) 1 % (0-3) Basophils (%) (Auto) 0 % (0-3) Neutrophils # (Auto) 2.9 x10^3uL (1.8-7.7) Lymphocytes # (Auto) 0.8 x10^3/uL (1.0-4.8) Monocytes # (Auto) 0.4 x10^3/uL (0.0-1.1) Eosinophils # (Auto) 0.0 x10^3/uL (0.0-0.7) Basophils # (Auto) 0.0 x10^3/uL (0.0-0.2) Sodium Level 139 mmol/L (136-145) Potassium Level 3.7 mmol/L (3.5-5.1) Chloride Level 103 mmol/L (98-107) Carbon Dioxide Level 27 mmol/L (21-32) Anion Gap 9 (6-14) Blood Urea Nitrogen 15 mg/dL (7-20) Creatinine 1.2 mg/dL (0.6-1.0) Estimated GFR (Cockcroft-Gault) 53.4 BUN/Creatinine Ratio 13 (6-20) Glucose Level 132 mg/dL (70-99) Calcium Level 10.2 mg/dL (8.5-10.1) Total Bilirubin 0.5 mg/dL (0.2-1.0) Aspartate Amino Transf (AST/SGOT) 13 U/L (15-37) Alanine Aminotransferase (ALT/SGPT) 18 U/L (14-59) Alkaline Phosphatase 65 U/L (46-116) Total Protein 6.4 g/dL (6.4-8.2) Albumin 3.1 g/dL (3.4-5.0) Albumin/Globulin Ratio 0.9 (1.0-1.7) Laboratory Tests Test 08/27/18 08:53 White Blood Count 4.1 x10^3/uL (4.0-11.0) Red Blood Count 4.65 x10^6/uL (3.50-5.40) Hemoglobin 13.4 g/dL (12.0-15.5) Hematocrit 40.8 % (36.0-47.0) Mean Corpuscular Volume 88 fL (79-100) Mean Corpuscular Hemoglobin 29 pg (25-35) Mean Corpuscular Hemoglobin Concent 33 g/dL (31-37) Red Cell Distribution Width 13.6 % (11.5-14.5) Platelet Count 131 x10^3/uL (140-400) Neutrophils (%) (Auto) 71 % (31-73) Lymphocytes (%) (Auto) 19 % (24-48) Monocytes (%) (Auto) 9 % (0-9) Eosinophils (%) (Auto) 1 % (0-3) Basophils (%) (Auto) 0 % (0-3) Neutrophils # (Auto) 2.9 x10^3uL (1.8-7.7) Lymphocytes # (Auto) 0.8 x10^3/uL (1.0-4.8) Monocytes # (Auto) 0.4 x10^3/uL (0.0-1.1) Eosinophils # (Auto) 0.0 x10^3/uL (0.0-0.7) Basophils # (Auto) 0.0 x10^3/uL (0.0-0.2) Prothrombin Time 22.4 SEC (11.7-14.0) Prothromb Time International Ratio 2.0 (0.8-1.1) Sodium Level 139 mmol/L (136-145) Potassium Level 3.7 mmol/L (3.5-5.1) Chloride Level 103 mmol/L (98-107) Carbon Dioxide Level 27 mmol/L (21-32) Anion Gap 9 (6-14) Blood Urea Nitrogen 15 mg/dL (7-20) Creatinine 1.2 mg/dL (0.6-1.0) Estimated GFR (Cockcroft-Gault) 53.4 BUN/Creatinine Ratio 13 (6-20) Glucose Level 132 mg/dL (70-99) Calcium Level 10.2 mg/dL (8.5-10.1) Total Bilirubin 0.5 mg/dL (0.2-1.0) Aspartate Amino Transf (AST/SGOT) 13 U/L (15-37) Alanine Aminotransferase (ALT/SGPT) 18 U/L (14-59) Alkaline Phosphatase 65 U/L (46-116) Total Protein 6.4 g/dL (6.4-8.2) Albumin 3.1 g/dL (3.4-5.0) Albumin/Globulin Ratio 0.9 (1.0-1.7) Medications Current Medications Ondansetron HCl (Zofran) 4 mg 1X ONCE IM Last administered on 08/19/18at 13:58; Start 08/19/18 at 14:00; Stop 08/19/18 at 14:01; Status DC Sodium Chloride 1,000 ml @ 1,000 mls/hr 1X ONCE IV Last administered on 08/19/18at 14:42; Start 08/19/18 at 14:30; Stop 08/19/18 at 15:29; Status DC Ondansetron HCl (Zofran) 4 mg PRN Q8HRS PRN IV NAUSEA/VOMITING Last administered on 08/20/18at 12:59; Start 08/19/18 at 15:45; Stop 08/20/18 at 15:44; Status DC Morphine Sulfate (Morphine Sulfate) 2 mg PRN Q2HR PRN IV PAIN; Start 08/19/18 at 15:45; Stop 08/20/18 at 15:44; Status DC Hydralazine HCl (Apresoline Inj) 10 mg 1X ONCE IVP Last administered on 08/19/18at 17:25; Start 08/19/18 at 17:15; Stop 08/19/18 at 17:17; Status DC Metoclopramide HCl (Reglan Vial) 10 mg 1X ONCE IV Last administered on 08/19/18 at 18:32; Start 08/19/18 at 18:15; Stop 08/19/18 at 18:16; Status DC Amlodipine Besylate (Norvasc) 5 mg 1X ONCE PO ; Start 08/19/18 at 19:30; Stop 08/19/18 at 19:31; Status DC Amlodipine Besylate (Norvasc) 5 mg DAILY PO Last administered on 08/21/18at 0 9:00; Start 08/20/18 at 09:00; Stop 08/21/18 at 10:05; Status DC Lisinopril (Prinivil) 20 mg DAILY PO Last administered on 08/20/18at 09:09; Start 08/20/18 at 09:00; Stop 08/20/18 at 10:45; Status DC Lisinopril (Prinivil) 20 mg 1X ONCE PO ; Start 08/19/18 at 19:30; Stop 08/19/18 at 19:31; Status DC Enoxaparin Sodium (Lovenox Per Pharmacy Prophylaxis Dosing) 1 each PRN DAILY KS N MC SEE COMMENTS; Start 08/19/18 at 20:15; Stop 08/20/18 at 11:44; Status DC Enoxaparin Sodium (Lovenox 40mg Syringe) 40 mg Q12H SQ Last administered on 08/19/18at 21:31; Start 08/19/18 at 21:00; Stop 08/20/18 at 11:44; Status DC Clonidine HCl (Catapres Tts-1) 1 patch WEEKLY TD Last administered on 08/19/18at 21:30; Start 08/19/18 at 21:00; Stop 08/20/18 at 11:33; Status DC Pantoprazole Sodium (PROTONIX VIAL for IV PUSH) 40 mg BIDAC IVP Last administered on 08/23/18 08:09; Start 08/20/18 at 09:00; Stop 08/23/18 at 16:22; Status DC Carvedilol (Coreg) 12.5 mg BIDWMEALS PO Last administered on 08/22/18 08:52; Start 08/20/18 at 10:30; Stop 08/22/18 at 12:42; Status DC Labetalol HCl (Normodyne Iv Push) 20 mg PRN Q2HR PRN IVP HYPERTENSION, 2ND CHOICE Last administered on 08/20/18 14:18; Start 08/20/18 at 10:15 Aspirin (Ecotrin) 81 mg DAILY PO Last administered on 08/27/18 08:40; Start 08/20/18 at 11:00 Atorvastatin Calcium (Lipitor) 40 mg HS PO Last administered on 08/26/18 20:56; Start 08/20/18 at 21:00 Bupropion HCl (Wellbutrin Sr) 150 mg BID PO Last administered on 08/27/18 08:40; Start 08/20/18 at 21:00 Vitamin D (Vitamin D3) 1,000 unit DAILY PO ; Start 08/20/18 at 11:00; Stop 08/20/18 at 12:53; Status DC Clonidine HCl (Catapres) 0.3 mg QHS PO ; Start 08/20/18 at 21:00; Stop 08/20/18 at 21:00; Status DC Docusate Sodium (Colace) 100 mg BID PO Last administered on 08/27/18 08:40; Start 08/20/18 at 11:00 Lisinopril (Prinivil) 20 mg BID PO Last administered on 08/27/18 08:41; Start 08/20/18 at 21:00 Oxycodone/ Acetaminophen (Percocet 10/325) 1 tab PRN Q6HRS PRN PO PAIN Last administered on 08/25/18 21:52; Start 08/20/18 at 10:45 Hydrochlorothiazide (Hydrodiuril) 25 mg DAILY PO ; Start 08/20/18 at 11:00; Stop 08/20/18 at 12:53; Status DC Polyethylene Glycol (miraLAX PACKET) 17 gm DAILY PO ; Start 08/20/18 at 11:00; Stop 08/21/18 at 15:29; Status DC Spironolactone (Aldactone) 25 mg DAILY PO ; Start 08/20/18 at 12:00; Stop 08/20/18 at 12:53; Status DC Warfarin Sodium (Coumadin) 5 mg 1X WARF ONCE PO Last administered on 08/20/18 18:51; Start 08/20/18 at 16:00; Stop 08/20/18 at 16:01; Status DC Potassium Chloride/Dextrose/ Sod Cl 1,000 ml @ 75 mls/hr [id number] IV Last administered on 08/23/18 08:26; Start 08/20/18 at 11:00; Stop 08/24/18 at 09:0 8; Status DC Warfarin Sodium (Coumadin Per Pharmacy) 1 each PRN DAILY PRN MC SEE COMMENTS Last administered on 08/21/18at 10:35; Start 08/20/18 at 12:00; Stop 08/21/18 at 10:57; Status DC Clonidine HCl (Catapres Tts-2) 1 patch We TD Last administered on 08/20/18 13:56; Start 08/20/18 at 13:00 Ondansetron HCl (Zofran) 4 mg PRN Q8HRS PRN IV NAUSEA/VOMITING Last administered on 08/21/18 09:04; Start 08/20/18 at 13:15; Stop 08/21/18 at 11:00; Status DC Hydralazine HCl (Apresoline Inj) 10 mg PRN Q2HRS PRN IVP ELEVATED BP, 1ST CHOICE Last administered on 08/22/18at 15:45; Start 08/20/18 at 18:15 Amlodipine Besylate (Norvasc) 5 mg DAILY PO ; Start 08/21/18 at 09:00; Status UNV Amlodipine Besylate (Norvasc) 10 mg DAILY PO Last administered on 08/27/18at 08:41; Start 08/22/18 at 09:00 Amlodipine Besylate (Norvasc) 5 mg 1X ONCE PO Last administered on 08/21/18at 11:19; Start 08/21/18 at 10:15; Stop 08/21/18 at 10:16; Status DC Warfarin Sodium (Coumadin - No Dose Today) 1 each 1X WARF ONCE MC ; Start 08/21/18 at 16:00; Stop 08/21/18 at 16:01; Status DC Phytonadione (Vitamin K Ampule) 5 mg 1X ONCE SQ Last administered on 08/21/18at 11:19; Start 08/21/18 at 11:00; Stop 08/21/18 at 11:07; Status DC Ondansetron HCl (Zofran) 4 mg PRN Q6HRS PRN IV NAUSEA/VOMITING, 1ST CHOICE Last administered on 08/22/18at 05:57; Start 08/21/18 at 11:00 Prochlorperazine Edisylate (Compazine) 10 mg PRN Q6HRS PRN IV NAUSEA/VOMITING, 2ND CHOICE Last administered on 08/22/18at 07:41; Start 08/21/18 at 11:00 Fentanyl Citrate (Fentanyl 2ml Vial) 50 mcg PRN Q2HR PRN IV SEVERE PAIN; Start 08/21/18 at 11:00 Multi-Ingredient Mouthwash/Gargle (Gi Cocktail) 20 ml PRN QID PRN PO CHEST PAIN; Start 08/21/18 at 11:00 Polyethylene Glycol (miraLAX PACKET) 17 gm BID PO Last administered on 08/27/18at 08:39; Start 08/21/18 at 21:00 Carvedilol (Coreg) 25 mg BIDWMEALS PO Last administered on 08/24/18at 08:21; Start 08/22/18 at 17:00; Stop 08/24/18 at 10:26; Status DC Carvedilol (Coreg) 12.5 mg 1X ONCE PO ; Start 08/22/18 at 12:45; Stop 08/22/18 at 12:46; Status DC Bisacodyl (Dulcolax Supp) 10 mg 1X ONCE KS Last administered on 08/22/18at 15:36; Start 08/22/18 at 15:00; Stop 08/22/18 at 15:03; Status DC Albuterol/ Ipratropium (Duoneb) 3 ml RTQID NEB Last administered on 08/27/18at 12:15; Start 08/22/18 at 22:00 Metoclopramide HCl (Reglan) 10 mg TIDAC PO Last administered on 08/24/18at 08:19; Start 08/23/18 at 09:00; Stop 08/24/18 at 11:40; Status DC Warfarin Sodium (Coumadin Per Pharmacy) 1 each PRN DAILY PRN MC SEE COMMENTS Last administered on 08/27/18at 12:15; Start 08/23/18 at 10:15 Warfarin Sodium (Coumadin) 4 mg 1X WARF ONCE PO Last administered on 08/23/18at 16:47; Start 08/23/18 at 16:00; Stop 08/23/18 at 16:01; Status DC Pantoprazole Sodium (Protonix) 40 mg DAILYAC PO Last administered on 08/25/18 08:19; Start 08/24/18 at 07:30; Stop 08/26/18 at 12:52; Status DC Warfarin Sodium (Coumadin) 5 mg 1X WARF ONCE PO Last administered on 08/24/18at 16:46; Start 08/24/18 at 16:00; Stop 08/24/18 at 16:01; Status DC Labetalol HCl (Trandate) 200 mg BID PO Last administered on 08/27/18 08:40; Start 08/24/18 at 21:00 Metoclopramide HCl (Reglan) 5 mg PRN TID PRN PO NAUSEA/VOMITING; Start 08/24/18 at 11:45; Stop 08/26/18 at 14:37; Status DC Bisacodyl (Dulcolax Tab) 10 mg 1X ONCE PO Last administered on 08/25/18at 14:04; Start 08/25/18 at 12:00; Stop 08/25/18 at 12:01; Status DC Warfarin Sodium (Coumadin) 6 mg 1X WARF ONCE PO Last administered on 08/25/18at 16:46; Start 08/25/18 at 16:00; Stop 08/25/18 at 16:01; Status DC Ondansetron HCl (Zofran) 4 mg PRN Q6HRS PRN IV NAUSEA/VOMITING; Start 08/26/18 at 07:00; Stop 08/27/18 at 06:59; Status DC Fentanyl Citrate (Fentanyl 2ml Vial) 25 mcg PRN Q5MIN PRN IV MILD PAIN; Start 08/26/18 at 07:00; Stop 08/27/18 at 06:59; Status DC Fentanyl Citrate (Fentanyl 2ml Vial) 50 mcg PRN Q5MIN PRN IV MODERATE TO SEVERE PAIN; Start 08/26/18 at 07:00; Stop 08/27/18 at 06:59; Status DC Morphine Sulfate (Morphine Sulfate) 1 mg PRN Q10MIN PRN IV SEVERE PAIN; Start 08/26/18 at 07:00; Stop 08/27/18 at 06:59; Status DC Ringer's Solution 1,000 ml @ 30 mls/hr Q24H IV ; Start 08/26/18 at 07:00; Stop 08/26/18 at 18:59; Status DC Lidocaine HCl (Xylocaine-Mpf 1% 2ml Vial) 2 ml PRN 1X PRN ID IV START; Start 08/26/18 at 07:00; Stop 08/27/18 at 06:59; Status DC Hydromorphone HCl (Dilaudid) 0.5 mg PRN Q10MIN PRN IV SEV PAIN, Second choice; Start 08/26/18 at 07:00; Stop 08/27/18 at 06:59; Status DC Propofol 20 ml @ As Directed STK-MED ONCE IV ; Start 08/26/18 at 11:51; Stop 08/26/18 at 11:52; Status DC Lidocaine HCl (Lidocaine Pf 2% Vial) 5 ml STK-MED ONCE .ROUTE ; Start 08/26/18 at 11:51; Stop 08/26/18 at 11:52; Status DC Pantoprazole Sodium (Protonix) 40 mg BIDAC PO Last administered on 08/27/18at 05:58; Start 08/26/18 at 16:30 Warfarin Sodium (Coumadin) 7.5 mg 1X WARF ONCE PO Last administered on 08/26/18at 15:42; Start 08/26/18 at 16:00; Stop 08/26/18 at 16:01; Status DC Ephedrine Sulfate (ePHEDrine PF IN SALINE SYRINGE) 50 mg STK-MED ONCE IV ; Start 08/26/18 at 12:00; Stop 08/27/18 at 07:00; Status DC Bisacodyl (Dulcolax Tab) 10 mg 1X ONCE PO Last administered on 08/27/18at 10:39; Start 08/27/18 at 09:30; Stop 08/27/18 at 09:31; Status DC Lubiprostone (Amitiza) 24 mcg BIDWMEALS PO Last administered on 08/27/18at 10:40; Start 08/27/18 at 09:30 Warfarin Sodium (Coumadin) 5 mg 1X WARF ONCE PO ; Start 08/27/18 at 16:00; Stop 08/27/18 at 16:01 Active Scripts Active Reported Spironolactone 25 Mg Tablet 1 Tab PO BID PRN Warfarin Sodium 5 Mg Tablet 5 Mg PO DAILY Miralax (Polyethylene Glycol 3350) 17 Gm Powd.pack 1 Packet PO DAILY Percocet 10-325 Mg Tablet (Oxycodone/Acetaminophen) 1 Each Tablet 1 Tab PO PRN Q6HRS PRN Metoprolol Tartrate 50 Mg Tablet 1 Tab PO BID Metformin Hcl 500 Mg Tablet 500 Mg PO BIDWMEALS Lisinopril 20 Mg Tablet 1 Tab PO BID Hydrochlorothiazide Tablet (Hydrochlorothiazide) 12.5 Mg Tablet 25 Mg PO DAILY Docusate Sodium 100 Mg Capsule 1 Cap PO BID Clonidine Hcl 0.3 Mg Tablet 1 Tab PO QHS Vitamin D3 (Cholecalciferol (Vitamin D3)) 1,000 Unit Tablet 1 Tab PO DAILY [calcium] Wellbutrin Sr (Bupropion Hcl) 150 Mg Tablet.er 1 Tab PO BID Atorvastatin Calcium 40 Mg Tablet 40 Mg PO HS Aspir-Low (Aspirin) 81 Mg Tablet.dr 1 Tab PO DAILY Proventil Hfa Inhaler (Albuterol Sulfate) 6.7 Gm Hfa.aer.ad 2 Puff IH PRN Q4HRS PRN Vitals/I & O Vital Sign - Last 24 Hours 08/26/18 08/26/18 08/26/1819 12:26 12:40 12:49 12:58 Temp 97.0 97.0 Pulse 56 73 61 63 Resp 16 16 16 16 B/P (MAP) 95/54 119/74 119/76 126/78 Pulse Ox 94 97 95 97 O2 Delivery Room Air Room Air Room Air Room Air 08/26/18 08/26/18 08/26/18 08/26/18 13:20 13:30 13:45 14:00 Temp 97.6 97.6 Pulse 62 64 67 67 Resp 18 B/P (MAP) 117/89 (98) 161/97 (118) 168/97 (120) 176/96 (122) Pulse Ox 98 92 92 96 O2 Delivery Room Air Room Air Room Air Room Air 08/26/18 08/26/18 08/26/18 08/26/18 14:03 14:04 14:04 14:30 Pulse 67 67 67 58 B/P (MAP) 168/96 168/96 168/96 180/89 (119) Pulse Ox 100 08/26/18 08/26/18 08/26/18 08/26/18 15:25 16:11 19:00 19:32 Temp 97.7 97.8 97.7 97.8 Pulse 63 58 Resp 18 18 B/P (MAP) 156/86 (109) 156/96 (116) Pulse Ox 96 90 95 96 O2 Delivery Room Air Room Air Room Air Room Air 08/26/18 08/26/18 08/26/18 08/26/18 20:00 20:51 20:52 23:00 Temp 98.9 98.9 Pulse 58 62 64 Resp 18 B/P (MAP) 156/96 156/96 142/79 (100) Pulse Ox 99 O2 Delivery Room Air Room Air 08/27/18 08/27/18 08/27/18 08/27/18 03:00 06:41 07:00 07:54 Temp 98.1 98.0 98.1 98.0 Pulse 64 69 Resp 20 18 B/P (MAP) 140/73 (95) 160/91 (114) Pulse Ox 98 95 94 O2 Delivery Room Air Room Air Room Air Room Air 08/27/18 08/27/18 08/27/18 08/27/18 08:40 08:41 08:41 08:44 Pulse 69 69 69 B/P (MAP) 160/91 160/91 160/91 O2 Delivery Room Air 08/27/18 08/27/18 11:00 12:15 Temp 97.9 97.9 Pulse 60 Resp 18 B/P (MAP) 144/75 (98) Pulse Ox 98 98 O2 Delivery Room Air Room Air Intake and Output 08/26/18 08/26/18 08/27/18 15:00 23:00 07:00 Intake Total 500 ml 240 ml 100 ml Balance 500 ml 240 ml 100 ml FREDDIE HELLER MD August 27, 2018 12:22
[2018-08-27] MEDS: cloNIDine TTS-2 1 PATCH PATCH TD SCH (12:50)
--- NOTE | 2018-08-27 14:09 | PDOC3 ---
Discharge Summary Date of Admission: Aug 19, 2018 Date of Discharge: August 27, 2018 Follow-Up: 1-2 days Admitting Diagnosis comment: DISCHARGE DX Chief Complaint IMPRESSION 1. GASTROPARESIS - NEW Dx - DELAYED GET - 08/22/18, NOW IMPROVED 2. Abdominal pain/n/v,some hematemesis - resolved 3. LONG standing DM 4. Accelerated HTN: likely sec to constant retching - 5. HLP 6. Hx of CVA 7. 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 CORINNE 9. Obesity BMI 42 10. Supra Therapeutic INR with mild hematemesis 11. HYpokalemia sec to emesis and poor po - CORRECTED 12. reported dysphagia plan EGD IN noted inflammation and congestion in pre-pyloric and duodenum on EGD - biopsies pending. low fiber/fat diet, small frequent meals. Continue PPI and Miralax - apparently no results from support ST Swallow screen GI CONSULTED d/c today to snf History of Present Illness History of Present Illness Second day that she is much better in terms of the nausea an GET is abN - delayed Initially had INR of 4 with some hematemesis with vomiting-initially planned for EGD but that did not push through hence got vitamin K and Coumadin was on hold Now INR 1.4. Needs to be on lifetime Coumadin for DVT PE history blood pressure on the high side,-I have discussed with cardiology, they made adjustments today grand daughter at bedside had a lot of questions and we have provided appropriate answers to her content and provided even copies of her tests Plan Okay transfer out of [facility] to a nonmonitored bed Continue blood pressure checks every 4 which is protocol on the floors Warfarin per pharmacy She did get 4 mg of warfarin yesterday and INR is today 1.4 INR check tomorrow PT recommended SNU and granddaughter agreeable Consult social work DC K containing IVF as potassium is already normal and she is starting by mouth intake home TODAY with new blood pressure regimen to SNU Full code D/C PLANNING 35 MIN Vitals Vitals Vital Signs Date Time Temp Pulse Resp B/P (MAP) Pulse Ox O2 Delivery O2 Flow Rate FiO2 08/27/18 12:15 98 Room Air 08/27/18 11:00 97.9 60 18 144/75 (98) 97.9 Physical Exam General: Alert, Oriented X3, Cooperative, No acute distress Heart: Regular rate (Sr no ectopies), Normal S1, Normal S2, No murmurs Lungs: Clear Abdomen: Soft, No tenderness Extremities: No cyanosis, No edema Skin: No breakdown, No significant lesion FINAL DIAGNOSIS Problems Medical Problems: (1) Diarrhea Status: Acute (2) Elevated serum creatinine Status: Acute (3) Hypertension Status: Acute (4) Vomiting Status: Acute Brief Hospital Course Ms. Chaney is a 73 old [sex] who presented with [INTRACTABLE VOMITING ] CONDITION AT DISCHARGE: Improved Discharge Medications Current Medications Ondansetron HCl (Zofran) 4 mg 1X ONCE IM Last administered on 08/19/18 13:58; Start 08/19/18 at 14:00; Stop 08/19/18 at 14:01; Status DC Sodium Chloride 1,000 ml @ 1,000 mls/hr 1X ONCE IV Last administered on 08/19/18at 14:42; Start 08/19/18 at 14:30; Stop 08/19/18 at 15:29; Status DC Ondansetron HCl (Zofran) 4 mg PRN Q8HRS PRN IV NAUSEA/VOMITING Last administered on 08/20/18at 12:59; Start 08/19/18 at 15:45; Stop 08/20/18 at 15:44; Status DC Morphine Sulfate (Morphine Sulfate) 2 mg PRN Q2HR PRN IV PAIN; Start 08/19/18 at 15:45; Stop 08/20/18 at 15:44; Status DC Hydralazine HCl (Apresoline Inj) 10 mg 1X ONCE IVP Last administered on 08/19/18at 17:25; Start 08/19/18 at 17:15; Stop 08/19/18 at 17:17; Status DC Metoclopramide HCl (Reglan Vial) 10 mg 1X ONCE IV Last administered on 08/19/18at 18:32; Start 08/19/18 at 18:15; Stop 08/19/18 at 18:16; Status DC Amlodipine Besylate (Norvasc) 5 mg 1X ONCE PO ; Start 08/19/18 at 19:30; Stop 08/19/18 at 19:31; Status DC Amlodipine Besylate (Norvasc) 5 mg DAILY PO Last administered on 08/21/18at 09:00; Start 08/20/18 at 09:00; Stop 08/21/18 at 10:05; Status DC Lisinopril (Prinivil) 20 mg DAILY PO Last administered on 08/20/18at 09:09; Start 08/20/18 at 09:00; Stop 08/20/18 at 10:45; Status DC Lisinopril (Prinivil) 20 mg 1X ONCE PO ; Start 08/19/18 at 19:30; Stop 08/19/18 at 19:31; Status DC Enoxaparin Sodium (Lovenox Per Pharmacy Prophylaxis Dosing) 1 each PRN DAILY PRN MC SEE COMMENTS; Start 08/19/18 at 20:15; Stop 08/20/18 at 11:44; Status DC Enoxaparin Sodium (Lovenox 40mg Syringe) 40 mg Q12H SQ Last administered on 08/19/18at 21:31; Start 08/19/18 at 21:00; Stop 08/20/18 at 11:44; Status DC Clonidine HCl (Catapres Tts-1) 1 patch WEEKLY TD Last administered on 08/19/18at 21:30; Start 08/19/18 at 21:00; Stop 08/20/18 at 11:33; Status DC Pantoprazole Sodium (PROTONIX VIAL for IV PUSH) 40 mg BIDAC IVP Last administered on 08/23/18at 08:09; Start 08/20/18 at 09:00; Stop 08/23/18 at 16:22; Status DC Carvedilol (Coreg) 12.5 mg BIDWMEALS PO Last administered on 08/22/18at 08:52; Start 08/20/18 at 10:30; Stop 08/22/18 at 12:42; Status DC Labetalol HCl (Normodyne Iv Push) 20 mg PRN Q2HR PRN IVP HYPERTENSION, 2ND CHOICE Last administered on 08/20/18at 14:18; Start 08/20/18 at 10:15 Aspirin (Ecotrin) 81 mg DAILY PO Last administered on 08/27/18at 08:40; Start 08/20/18 at 11:00 Atorvastatin Calcium (Lipitor) 40 mg HS PO Last administered on 08/26/18at 20:56; Start 08/20/18 at 21:00 Bupropion HCl (Wellbutrin Sr) 150 mg BID PO Last administered on 08/27/18 08:40; Start 08/20/18 at 21:00 Vitamin D (Vitamin D3) 1,000 unit DAILY PO ; Start 08/20/18 at 11:00; Stop at 12:53; Status DC Clonidine HCl (Catapres) 0.3 mg QHS PO ; Start 08/20/18 at 21:00; Stop 08/20/18 at 21:00; Status DC Docusate Sodium (Colace) 100 mg BID PO Last administered on 08/27/18at 08:40; Start 08/20/18 at 11:00 Lisinopril (Prinivil) 20 mg BID PO Last administered on 08/27/18at 08:41; Start 08/20/18 at 21:00 Oxycodone/ Acetaminophen (Percocet 10/325) 1 tab PRN Q6HRS PRN PO PAIN Last administered on 08/25/18at 21:52; Start 08/20/18 at 10:45 Hydrochlorothiazide (Hydrodiuril) 25 mg DAILY PO ; Start 08/20/18 at 11:00; Stop 08/20/18 at 12:53; Status DC Polyethylene Glycol (miraLAX PACKET) 17 gm DAILY PO ; Start 08/20/18 at 11:00; Stop 08/21/18 at 15:29; Status DC Spironolactone (Aldactone) 25 mg DAILY PO ; Start 08/20/18 at 12:00; Stop 08/20/18 at 12:53; Status DC Warfarin Sodium (Coumadin) 5 mg 1X WARF ONCE PO Last administered on 08/20/18at 18:51; Start 08/20/18 at 16:00; Stop 08/20/18 at 16:01; Status DC Potassium Chloride/Dextrose/ Sod Cl 1,000 ml @ 75 mls/hr [id number] IV Last administered on 08/23/18at 08:26; Start 08/20/18 at 11:00; Stop 08/24/18 at 09:08; Status DC Warfarin Sodium (Coumadin Per Pharmacy) 1 each PRN DAILY PRN MC SEE COMMENTS Last administered on 08/21/18at 10:35; Start 08/20/18 at 12:00; Stop 08/21/18 at 10:57; Status DC Clonidine HCl (Catapres Tts-2) 1 patch We TD Last administered on 08/27/18at 12:50; Start 08/20/18 at 13:00 Ondansetron HCl (Zofran) 4 mg PRN Q8HRS PRN IV NAUSEA/VOMITING Last administered on 08/21/18at 09:04; Start 08/20/18 at 13:15; Stop 08/21/18 at 11:0 0; Status DC Hydralazine HCl (Apresoline Inj) 10 mg PRN Q2HRS PRN IVP ELEVATED BP, 1ST CHOICE Last administered on 08/22/18at 15:45; Start 08/20/18 at 18:15 Amlodipine Besylate (Norvasc) 5 mg DAILY PO ; Start 08/21/18 at 09:00; Status UNV Amlodipine Besylate (Norvasc) 10 mg DAILY PO Last administered on 08/27/18 08:41; Start 08/22/18 at 09:00 Amlodipine Besylate (Norvasc) 5 mg 1X ONCE PO Last administered on 08/21/18at 11:19; Start 08/21/18 at 10:15; Stop 08/21/18 at 10:16; Status DC Warfarin Sodium (Coumadin - No Dose Today) 1 each 1X WARF ONCE MC ; Start 08/21/18 at 16:00; Stop 08/21/18 at 16:01; Status DC Phytonadione (Vitamin K Ampule) 5 mg 1X ONCE SQ Last administered on 08/21/18at 11:19; Start 08/21/18 at 11:00; Stop 08/21/18 at 11:07; Status DC Ondansetron HCl (Zofran) 4 mg PRN Q6HRS PRN IV NAUSEA/VOMITING, 1ST CHOICE Last administered on 08/22/18at 05:57; Start 08/21/18 at 11:00 Prochlorperazine Edisylate (Compazine) 10 mg PRN Q6HRS PRN IV NAUSEA/VOMITING, 2ND CHOICE Last administered on 08/22/18at 07:41; Start 08/21/18 at 11:00 Fentanyl Citrate (Fentanyl 2ml Vial) 50 mcg PRN Q2HR PRN IV SEVERE PAIN; Start 08/21/18 at 11:00 Multi-Ingredient Mouthwash/Gargle (Gi Cocktail) 20 ml PRN QID PRN PO CHEST PAIN; Start 08/21/18 at 11:00 Polyethylene Glycol (miraLAX PACKET) 17 gm BID PO Last administered on 08/27/18 08:39; Start 08/21/18 at 21:00 Carvedilol (Coreg) 25 mg BIDWMEALS PO Last administered on 08/24/18 08:21; Start 08/22/18 at 17:00; Stop 08/24/18 at 10:26; Status DC Carvedilol (Coreg) 12.5 mg 1X ONCE PO ; Start 08/22/18 at 12:45; Stop 08/22/18 at 12:46; Status DC Bisacodyl (Dulcolax Supp) 10 mg 1X ONCE SD Last administered on 08/22/18at 15:36; Start 08/22/18 at 15:00; Stop 08/22/18 at 15:03; Status DC Albuterol/ Ipratropium (Duoneb) 3 ml RTQID NEB Last administered on 08/27/18at 12:15; Start 08/22/18 at 22:00 Metoclopramide HCl (Reglan) 10 mg TIDAC PO Last administered on 08/24/18 08:19; Start 08/23/18 at 09:00; Stop 08/24/18 at 11:40; Status DC Warfarin Sodium (Coumadin Per Pharmacy) 1 each PRN DAILY PRN MC SEE COMMENTS Last administered on 08/27/18at 12:15; Start 08/23/18 at 10:15 Warfarin Sodium (Coumadin) 4 mg 1X WARF ONCE PO Last administered on 08/23/18at 16:47; Start 08/23/18 at 16:00; Stop 08/23/18 at 16:01; Status DC Pantoprazole Sodium (Protonix) 40 mg DAILYAC PO Last administered on 08/25/18 08:19; Start 08/24/18 at 07:30; Stop 08/26/18 at 12:52; Status DC Warfarin Sodium (Coumadin) 5 mg 1X WARF ONCE PO Last administered on 08/24/18at 16:46; Start 08/24/18 at 16:00; Stop 08/24/18 at 16:01; Status DC Labetalol HCl (Trandate) 200 mg BID PO Last administered on 5/1/19at 08:40; Start 08/24/18 at 21:00 Metoclopramide HCl (Reglan) 5 mg PRN TID PRN PO NAUSEA/VOMITING; Start 08/24/18 at 11:45; Stop 08/26/18 at 14:37; Status DC Bisacodyl (Dulcolax Tab) 10 mg 1X ONCE PO Last administered on 08/25/18at 14:04; Start 08/25/18 at 12:00; Stop 08/25/18 at 12:01; Status DC Warfarin Sodium (Coumadin) 6 mg 1X WARF ONCE PO Last administered on 08/25/18at 16:46; Start 08/25/18 at 16:00; Stop 08/25/18 at 16:01; Status DC Ondansetron HCl (Zofran) 4 mg PRN Q6HRS PRN IV NAUSEA/VOMITING; Start 08/26/18 at 07:00; Stop 08/27/18 at 06:59; Status DC Fentanyl Citrate (Fentanyl 2ml Vial) 25 mcg PRN Q5MIN PRN IV MILD PAIN; Start 08/26/18 at 07:00; Stop 08/27/18 at 06:59; Status DC Fentanyl Citrate (Fentanyl 2ml Vial) 50 mcg PRN Q5MIN PRN IV MODERATE TO SEVERE PAIN; Start 08/26/18 at 07:00; Stop 08/27/18 at 06:59; Status DC Morphine Sulfate (Morphine Sulfate) 1 mg PRN Q10MIN PRN IV SEVERE PAIN; Start 08/26/18 at 07:00; Stop 08/27/18 at 06:59; Status DC Ringer's Solution 1,000 ml @ 30 mls/hr Q24H IV ; Start 08/26/18 at 07:00; Stop 08/26/18 at 18:59; Status DC Lidocaine HCl (Xylocaine-Mpf 1% 2ml Vial) 2 ml PRN 1X PRN ID IV START; Start 08/26/18 at 07:00; Stop 08/27/18 at 06:59; Status DC Hydromorphone HCl (Dilaudid) 0.5 mg PRN Q10MIN PRN IV SEV PAIN, Second choice; Start 08/26/18 at 07:00; Stop 08/27/18 at 06:59; Status DC Propofol 20 ml @ As Directed STK-MED ONCE IV ; Start 08/26/18 at 11:51; Stop 08/26/18 at 11:52; Status DC Lidocaine HCl (Lidocaine Pf 2% Vial) 5 ml STK-MED ONCE .ROUTE ; Start 08/26/18 at 11:51; Stop 08/26/18 at 11:52; Status DC Pantoprazole Sodium (Protonix) 40 mg BIDAC PO Last administered on 08/27/18at 05:58; Start 08/26/18 at 16:30 Warfarin Sodium (Coumadin) 7.5 mg 1X WARF ONCE PO Last administered on 08/26/18at 15:42; Start 08/26/18 at 16:00; Stop 08/26/18 at 16:01; Status DC Ephedrine Sulfate (ePHEDrine PF IN SALINE SYRINGE) 50 mg STK-MED ONCE IV ; Start 08/26/18 at 12:00; Stop 08/27/18 at 07:00; Status DC Bisacodyl (Dulcolax Tab) 10 mg 1X ONCE PO Last administered on 08/27/18at 10:39; Start 08/27/18 at 09:30; Stop 08/27/18 at 09:31; Status DC Lubiprostone (Amitiza) 24 mcg BIDWMEALS PO Last administered on 08/27/18at 10:40; Start 08/27/18 at 09:30 Warfarin Sodium (Coumadin) 5 mg 1X WARF ONCE PO ; Start 08/27/18 at 16:00; Stop 08/27/18 at 16:01 Active Scripts Active Reported Spironolactone 25 Mg Tablet 1 Tab PO BID PRN Warfarin Sodium 5 Mg Tablet 5 Mg PO DAILY Miralax (Polyethylene Glycol 3350) 17 Gm Powd.pack 1 Packet PO DAILY Percocet 10-325 Mg Tablet (Oxycodone/Acetaminophen) 1 Each Tablet 1 Tab PO PRN Q6HRS PRN Metoprolol Tartrate 50 Mg Tablet 1 Tab PO BID Metformin Hcl 500 Mg Tablet 500 Mg PO BIDWMEALS Lisinopril 20 Mg Tablet 1 Tab PO BID Hydrochlorothiazide Tablet (Hydrochlorothiazide) 12.5 Mg Tablet 25 Mg PO DAILY Docusate Sodium 100 Mg Capsule 1 Cap PO BID Clonidine Hcl 0.3 Mg Tablet 1 Tab PO QHS Vitamin D3 (Cholecalciferol (Vitamin D3)) 1,000 Unit Tablet 1 Tab PO DAILY [calcium] Wellbutrin Sr (Bupropion Hcl) 150 Mg Tablet.er 1 Tab PO BID Atorvastatin Calcium 40 Mg Tablet 40 Mg PO HS Aspir-Low (Aspirin) 81 Mg Tablet.dr 1 Tab PO DAILY Proventil Hfa Inhaler (Albuterol Sulfate) 6.7 Gm Hfa.aer.ad 2 Puff IH PRN Q4HRS PRN Vital Signs Vital Signs Date Time Temp Pulse Resp B/P (MAP) Pulse Ox O2 Delivery O2 Flow Rate FiO2 08/27/18 12:15 98 Room Air 08/27/18 11:00 97.9 60 18 144/75 (98) 97.9 Labs Laboratory Tests Test 08/26/18 02:50 08/27/18 08:53 Prothrombin Time 17.2 SEC (11.7-14.0) 22.4 SEC (11.7-14.0) Prothromb Time International Ratio 1.4 (0.8-1.1) 2.0 (0.8-1.1) White Blood Count 4.1 x10^3/uL (4.0-11.0) Red Blood Count 4.65 x10^6/uL (3.50-5.40) Hemoglobin 13.4 g/dL (12.0-15.5) Hematocrit 40.8 % (36.0-47.0) Mean Corpuscular Volume 88 fL (79-100) Mean Corpuscular Hemoglobin 29 pg (25-35) Mean Corpuscular Hemoglobin Concent 33 g/dL (31-37) Red Cell Distribution Width 13.6 % (11.5-14.5) Platelet Count 131 x10^3/uL (140-400) Neutrophils (%) (Auto) 71 % (31-73) Lymphocytes (%) (Auto) 19 % (24-48) Monocytes (%) (Auto) 9 % (0-9) Eosinophils (%) (Auto) 1 % (0-3) Basophils (%) (Auto) 0 % (0-3) Neutrophils # (Auto) 2.9 x10^3uL (1.8-7.7) Lymphocytes # (Auto) 0.8 x10^3/uL (1.0-4.8) Monocytes # (Auto) 0.4 x10^3/uL (0.0-1.1) Eosinophils # (Auto) 0.0 x10^3/uL (0.0-0.7) Basophils # (Auto) 0.0 x10^3/uL (0.0-0.2) Sodium Level 139 mmol/L (136-145) Potassium Level 3.7 mmol/L (3.5-5.1) Chloride Level 103 mmol/L (98-107) Carbon Dioxide Level 27 mmol/L (21-32) Anion Gap 9 (6-14) Blood Urea Nitrogen 15 mg/dL (7-20) Creatinine 1.2 mg/dL (0.6-1.0) Estimated GFR (Cockcroft-Gault) 53.4 BUN/Creatinine Ratio 13 (6-20) Glucose Level 132 mg/dL (70-99) Calcium Level 10.2 mg/dL (8.5-10.1) Total Bilirubin 0.5 mg/dL (0.2-1.0) Aspartate Amino Transf (AST/SGOT) 13 U/L (15-37) Alanine Aminotransferase (ALT/SGPT) 18 U/L (14-59) Alkaline Phosphatase 65 U/L (46-116) Total Protein 6.4 g/dL (6.4-8.2) Albumin 3.1 g/dL (3.4-5.0) Albumin/Globulin Ratio 0.9 (1.0-1.7) Laboratory Tests Test 08/27/18 08:53 White Blood Count 4.1 x10^3/uL (4.0-11.0) Red Blood Count 4.65 x10^6/uL (3.50-5.40) Hemoglobin 13.4 g/dL (12.0-15.5) Hematocrit 40.8 % (36.0-47.0) Mean Corpuscular Volume 88 fL (79-100) Mean Corpuscular Hemoglobin 29 pg (25-35) Mean Corpuscular Hemoglobin Concent 33 g/dL (31-37) Red Cell Distribution Width 13.6 % (11.5-14.5) Platelet Count 131 x10^3/uL (140-400) Neutrophils (%) (Auto) 71 % (31-73) Lymphocytes (%) (Auto) 19 % (24-48) Monocytes (%) (Auto) 9 % (0-9) Eosinophils (%) (Auto) 1 % (0-3) Basophils (%) (Auto) 0 % (0-3) Neutrophils # (Auto) 2.9 x10^3uL (1.8-7.7) Lymphocytes # (Auto) 0.8 x10^3/uL (1.0-4.8) Monocytes # (Auto) 0.4 x10^3/uL (0.0-1.1) Eosinophils # (Auto) 0.0 x10^3/uL (0.0-0.7) Basophils # (Auto) 0.0 x10^3/uL (0.0-0.2) Prothrombin Time 22.4 SEC (11.7-14.0) Prothromb Time International Ratio 2.0 (0.8-1.1) Sodium Level 139 mmol/L (136-145) Potassium Level 3.7 mmol/L (3.5-5.1) Chloride Level 103 mmol/L (98-107) Carbon Dioxide Level 27 mmol/L (21-32) Anion Gap 9 (6-14) Blood Urea Nitrogen 15 mg/dL (7-20) Creatinine 1.2 mg/dL (0.6-1.0) Estimated GFR (Cockcroft-Gault) 53.4 BUN/Creatinine Ratio 13 (6-20) Glucose Level 132 mg/dL (70-99) Calcium Level 10.2 mg/dL (8.5-10.1) Total Bilirubin 0.5 mg/dL (0.2-1.0) Aspartate Amino Transf (AST/SGOT) 13 U/L (15-37) Alanine Aminotransferase (ALT/SGPT) 18 U/L (14-59) Alkaline Phosphatase 65 U/L (46-116) Total Protein 6.4 g/dL (6.4-8.2) Albumin 3.1 g/dL (3.4-5.0) Albumin/Globulin Ratio 0.9 (1.0-1.7) Allergies Allergies Coded Allergies Type Severity Reaction Last Updated Verified Penicillins Allergy Intermediate 09/20/15 Yes iodine Allergy Intermediate 09/20/15 Yes Disposition/Orders: Other (TO SNF BED) Patient Instructions D/C PLANNING 35 MIN FREDDIE HELLER MD August 27, 2018 14:09
[2018-08-27] MEDS ORDERED: AMLO5TAB10 PO (14:15)
[2018-08-27] MEDS ORDERED: CLON1PAT2 TD (14:15)
[2018-08-27] MEDS ORDERED: LABE200T4 PO (14:15)
[2018-08-27 15:00] VITALS: BP 129/70
[2018-08-27] MEDS ORDERED: WARFARIN 5 MG TABLET. PO ONE (16:00)
--- NOTE | 2018-08-27 16:06 | PATHOLOGY ---
[facility] Accession Number: [id number] . 01 Material submitted: . PART A: duodenum - BIOPSY FROM BULB AND 1ST PART OF DUODENUM. Modifiers: BULB, first PART B: stomach - GASTRIC BIOPSY PART C: esophagus - GE JUNCTION . 01 Clinical history: . Abdominal pain . 02 Diagnosis: A. Duodenal biopsies, duodenal bulb and first portion of duodenum: - Focal mild nonspecific duodenitis. . B. Gastric biopsies: - Active chronic gastritis, moderate to marked, with small focus of intestinal metaplasia and with Helicobacter organisms identified. . C. Gastroesophageal junction biopsies: - Segments of gastric and esophagogastric mucosa showing focally active moderate to marked chronic inflammation. (JPM:[facility] 08/27/2018) [facility]/08/27/2018 . 02 Comment: Sections of the duodenal bulb and first portion of duodenum biopsies reveal segments of duodenal mucosa showing focal congestion and mild chronic inflammation with focally prominent submucosal Glo's glands. There are no sprue-like changes. . Sections of the gastric biopsy reveal segments of gastric body and gastric antral mucosa showing moderate to marked active chronic inflammation with a small focus of intestinal metaplasia. A properly controlled immunoperoxidase stain for Helicobacter reveals prominent numbers of Helicobacter organisms primarily associated with the gastric body mucosa. There is no evidence of malignancy. . Sections of the gastroesophageal junction biopsy reveal segments of gastric mucosa, one of which has a small portion of squamous esophageal mucosa. There is focally active moderate to marked chronic inflammation. There is no evidence of Vargas's change, dysplasia, or malignancy. (JPM:[facility] 08/27/2018) . Special stain performed: Immunoperoxidase for Helicobacter on B1. . 02 Electronically signed: . Costa Sánchez MD, Pathologist NPI- [id number] . 01 Gross description: . A. Received in formalin labeled "Osbey, Karen, BX from bulb and 1st part of duodenum," are 5 segments of fernandes soft tissue measuring 1.4 x 0.7 x 0.3 cm in aggregate dimensions and ranging from 0.3 to 0.4 cm in maximum dimension. The specimen is submitted entirely in cassette A1. . B. Received in formalin labeled "Osbey, Karen, gastric BX," are multiple segments of fernandes soft tissue measuring 0.6 x 0.4 x 0.1 cm in aggregate dimensions. The specimen is filtered and entirely submitted in cassette B1. . C. Received in formalin labeled "Osbey, Karen, GE junction, rule out Vargas's," are 2 segments of fernandes soft tissue measuring 0.7 x 0.2 x 0.2 cm in aggregate dimensions and ranging from 0.3 to 0.4 cm in maximum dimension. The specimen is submitted entirely in cassette C1. ([facility]; 08/26/2018) TOB/TOB . 02 Pathologist provided ICD-10: K29.80, K29.50, K20.8, B96.81 . 02 CPT . 543104, 477495, [id number], [id number] Specimen Comment: A courtesy copy of this report has been sent to Specimen Comment: [phone], , . Specimen Comment: Report sent to ,DR VELEZ / DR JEFF Performed at: 01 [facility] [address], [place], [place] [id number] MD Luis E Sampson MD Phone: [phone] Performed at: 02 [facility] [address] [place], [place] [id number] MD Costa Sánchez MD Phone: [phone]
[2018-08-27 19:00] VITALS: BP 169/81
[2018-08-27] MEDS: ATORVASTATIN CALCIUM 40 MG TABLET. PO SCH (20:45)
[2018-08-27 23:00] VITALS: BP 169/84
[2018-08-28 03:00] VITALS: BP 137/76
--- NOTE | 2018-08-28 05:10 | NUR ---
Per slab lifting engineer, pt refused scheduled AM labs draws. notified, will continue to monitor.
[2018-08-28] MEDS: PANTOPRAZOLE 40 MG TABLET.DR. PO SCH ×2 (05:58→18:12)
[2018-08-28 07:00] VITALS: BP 169/79
[2018-08-28] MEDS: IPRATRPIUM/ALBUTEROL 0.5/2.5MG 3 ML NEBU. NEB SCH ×4 (07:28→20:02)
[2018-08-28] MEDS: buPROPion SR 150 MG TABLET.SA PO SCH ×2 (09:02→20:44)
[2018-08-28] MEDS: DOCUSATE SODIUM 100 MG CAPSULE. PO SCH ×2 (09:02→20:43)
[2018-08-28] MEDS: LUBIPROSTONE 8 MCG CAPSULE PO SCH ×2 (09:02→18:12)
[2018-08-28] MEDS: ASPIRIN ENTERIC COATED 81 MG TABLET.DR. PO SCH (09:02)
[2018-08-28] MEDS: POLYETHYLENE GLYCOL 3350 17 GM PACKET. PO SCH ×2 (09:02→21:00)
[2018-08-28] MEDS: LISINOPRIL 20 MG TABLET PO SCH ×2 (09:03→20:44)
[2018-08-28] MEDS: LABETALOL HCL 200 MG TABLET PO SCH ×2 (09:03→20:43)
[2018-08-28] MEDS: amLODIPine BESYLATE 5 MG TABLET PO SCH (09:04)
--- NOTE | 2018-08-28 09:51 | PDOC ---
PROGRESS NOTES Chief Complaint Chief Complaint IMPRESSION 1. GASTROPARESIS - NEW Dx - DELAYED GET - 08/22/18, IMPROVED 2. Abdominal pain/n/v,some hematemesis - the latter resolved 3. LONG standing DM 4. Accelerated HTN: likely sec to constant retching - crads has made adjustments today 08/24/18 5. HLP 6. Hx of CVA 7. 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 CORINNE 9. Obesity BMI 42 10. Supra Therapeutic INR with mild hematemesis nOW SUBTHERAPEUTIC 11. HYpokalemia sec to emesis and poor po - CORRECTED 12. reported dysphagia plan awaiting insurance approval for [facility]. EGD IN noted inflammation and congestion in pre-pyloric and duodenum on EGD - biopsies pending. low fiber/fat diet, small frequent meals. Continue PPI and Miralax - apparently no results from support ST Swallow screen GI CONSULTED d/c today to snf History of Present Illness History of Present Illness Second day that she is much better in terms of the nausea an GET is abN - delay ed Initially had INR of 4 with some hematemesis with vomiting-initially planned for EGD but that did not push through hence got vitamin K and Coumadin was on hold Now INR 1.4. Needs to be on lifetime Coumadin for DVT PE history blood pressure on the high side,-I have discussed with cardiology, they made adjustments today grand daughter at bedside had a lot of questions and we have provided appropriate answers to her content and provided even copies of her tests Plan Okay transfer out of [facility] to a nonmonitored bed Continue blood pressure checks every 4 which is protocol on the floors Warfarin per pharmacy She did get 4 mg of warfarin yesterday and INR is today 1.4 INR check tomorrow PT recommended SNU and granddaughter agreeable Consult social work DC K containing IVF as potassium is already normal and she is starting by mouth intake Possibly home tomorrow with new blood pressure regimen to SNU Full code Vitals Vitals Vital Signs Date Time Temp Pulse Resp B/P (MAP) Pulse Ox O2 Delivery O2 Flow Rate FiO2 08/28/18 09:04 65 169/79 08/28/18 07:28 96 Room Air 08/28/18 07:00 16 08/28/18 03:00 98.2 98.2 Physical Exam General: Alert, Oriented X3, Cooperative, No acute distress Heart: Regular rate (Sr no ectopies), Normal S1, Normal S2, No murmurs Lungs: Clear Abdomen: Normal bowel sounds, Soft, No tenderness Extremities: No cyanosis, No edema Skin: No breakdown, No significant lesion Assessment and Plan Assessmemt and Plan Problems Medical Problems: (1) Diarrhea Status: Acute (2) Elevated serum creatinine Status: Acute (3) Hypertension Status: Acute (4) Vomiting Status: Acute Comment Review of Relevant I have reviewed the following items grady (where applicable) has been applied. Labs Laboratory Tests Test 08/27/18 08:53 White Blood Count 4.1 x10^3/uL (4.0-11.0) Red Blood Count 4.65 x10^6/uL (3.50-5.40) Hemoglobin 13.4 g/dL (12.0-15.5) Hematocrit 40.8 % (36.0-47.0) Mean Corpuscular Volume 88 fL (79-100) Mean Corpuscular Hemoglobin 29 pg (25-35) Mean Corpuscular Hemoglobin Concent 33 g/dL (31-37) Red Cell Distribution Width 13.6 % (11.5-14.5) Platelet Count 131 x10^3/uL (140-400) Neutrophils (%) (Auto) 71 % (31-73) Lymphocytes (%) (Auto) 19 % (24-48) Monocytes (%) (Auto) 9 % (0-9) Eosinophils (%) (Auto) 1 % (0-3) Basophils (%) (Auto) 0 % (0-3) Neutrophils # (Auto) 2.9 x10^3uL (1.8-7.7) Lymphocytes # (Auto) 0.8 x10^3/uL (1.0-4.8) Monocytes # (Auto) 0.4 x10^3/uL (0.0-1.1) Eosinophils # (Auto) 0.0 x10^3/uL (0.0-0.7) Basophils # (Auto) 0.0 x10^3/uL (0.0-0.2) Prothrombin Time 22.4 SEC (11.7-14.0) Prothromb Time International Ratio 2.0 (0.8-1.1) Sodium Level 139 mmol/L (136-145) Potassium Level 3.7 mmol/L (3.5-5.1) Chloride Level 103 mmol/L (98-107) Carbon Dioxide Level 27 mmol/L (21-32) Anion Gap 9 (6-14) Blood Urea Nitrogen 15 mg/dL (7-20) Creatinine 1.2 mg/dL (0.6-1.0) Estimated GFR (Cockcroft-Gault) 53.4 BUN/Creatinine Ratio 13 (6-20) Glucose Level 132 mg/dL (70-99) Calcium Level 10.2 mg/dL (8.5-10.1) Total Bilirubin 0.5 mg/dL (0.2-1.0) Aspartate Amino Transf (AST/SGOT) 13 U/L (15-37) Alanine Aminotransferase (ALT/SGPT) 18 U/L (14-59) Alkaline Phosphatase 65 U/L (46-116) Total Protein 6.4 g/dL (6.4-8.2) Albumin 3.1 g/dL (3.4-5.0) Albumin/Globulin Ratio 0.9 (1.0-1.7) Medications Current Medications Ondansetron HCl (Zofran) 4 mg 1X ONCE IM Last administered on 08/19/18at 13:58; Start 08/19/18 at 14:00; Stop 08/19/18 at 14:01; Status DC Sodium Chloride 1,000 ml @ 1,000 mls/hr 1X ONCE IV Last administered on 08/19/18at 14:42; Start 08/19/18 at 14:30; Stop 08/19/18 at 15:29; Status DC Ondansetron HCl (Zofran) 4 mg PRN Q8HRS PRN IV NAUSEA/VOMITING Last administered on 08/20/18at 12:59; Start 08/19/18 at 15:45; Stop 08/20/18 at 15:44; Status DC Morphine Sulfate (Morphine Sulfate) 2 mg PRN Q2HR PRN IV PAIN; Start 08/19/18 at 15:45; Stop 08/20/18 at 15:44; Status DC Hydralazine HCl (Apresoline Inj) 10 mg 1X ONCE IVP Last administered on 08/19/18at 17:25; Start 08/19/18 at 17:15; Stop 08/19/18 at 17:17; Status DC Metoclopramide HCl (Reglan Vial) 10 mg 1X ONCE IV Last administered on 08/19/18at 18:32; Start 08/19/18 at 18:15; Stop 08/19/18 at 18:16; Status DC Amlodipine Besylate (Norvasc) 5 mg 1X ONCE PO ; Start 08/19/18 at 19:30; Stop 08/19/18 at 19:31; Status DC Amlodipine Besylate (Norvasc) 5 mg DAILY PO Last administered on 08/21/18at 09:00; Start 08/20/18 at 09:00; Stop 08/21/18 at 10:05; Status DC Lisinopril (Prinivil) 20 mg DAILY PO Last administered on 08/20/18at 09:09; Start 08/20/18 at 09:00; Stop 08/20/18 at 10:45; Status DC Lisinopril (Prinivil) 20 mg 1X ONCE PO ; Start 08/19/18 at 19:30; Stop 08/19/18 at 19:31; Status DC Enoxaparin Sodium (Lovenox Per Pharmacy Prophylaxis Dosing) 1 each PRN DAILY PRN MC SEE COMMENTS; Start 08/19/18 at 20:15; Stop 08/20/18 at 11:44; Status DC Enoxaparin Sodium (Lovenox 40mg Syringe) 40 mg Q12H SQ Last administered on 08/19/18at 21:31; Start 08/19/18 at 21:00; Stop 08/20/18 at 11:44; Status DC Clonidine HCl (Catapres Tts-1) 1 patch WEEKLY TD Last administered on 08/19/18at 21:30; Start 08/19/18 at 21:00; Stop 08/20/18 at 11:33; Status DC Pantoprazole Sodium (PROTONIX VIAL for IV PUSH) 40 mg BIDAC IVP Last administered on 08/23/18at 08:09; Start 08/20/18 at 09:00; Stop 08/23/18 at 16:22; Status DC Carvedilol (Coreg) 12.5 mg BIDWMEALS PO Last administered on 08/22/18at 08:52; Start 08/20/18 at 10:30; Stop 08/22/18 at 12:42; Status DC Labetalol HCl (Normodyne Iv Push) 20 mg PRN Q2HR PRN IVP HYPERTENSION, 2ND CHOICE Last administered on 08/20/18 14:18; Start 08/20/18 at 10:15 Aspirin (Ecotrin) 81 mg DAILY PO Last administered on 08/28/18 09:02; Start 08/20/18 at 11:00 Atorvastatin Calcium (Lipitor) 40 mg HS PO Last administered on 08/27/18at 20:45; Start 08/20/18 at 21:00 Bupropion HCl (Wellbutrin Sr) 150 mg BID PO Last administered on 08/28/18 09:02; Start 08/20/18 at 21:00 Vitamin D (Vitamin D3) 1,000 unit DAILY PO ; Start 08/20/18 at 11:00; Stop 08/20/18 at 12:53; Status DC Clonidine HCl (Catapres) 0.3 mg QHS PO ; Start 08/20/18 at 21:00; Stop 08/20/18 at 21:00; Status DC Docusate Sodium (Colace) 100 mg BID PO Last administered on 08/28/18 09:02; Start 08/20/18 at 11:00 Lisinopril (Prinivil) 20 mg BID PO Last administered on 08/28/18 09:03; Start 08/20/18 at 21:00 Oxycodone/ Acetaminophen (Percocet 10/325) 1 tab PRN Q6HRS PRN PO PAIN Last administered on 08/25/18at 21:52; Start 08/20/18 at 10:45 Hydrochlorothiazide (Hydrodiuril) 25 mg DAILY PO ; Start 08/20/18 at 11:00; Stop 08/20/18 at 12:53; Status DC Polyethylene Glycol (miraLAX PACKET) 17 gm DAILY PO ; Start 08/20/18 at 11:00; Stop 08/21/18 at 15:29; Status DC Spironolactone (Aldactone) 25 mg DAILY PO ; Start 08/20/18 at 12:00; Stop 08/20/18 at 12:53; Status DC Warfarin Sodium (Coumadin) 5 mg 1X WARF ONCE PO Last administered on 08/20/18at 18:51; Start 08/20/18 at 16:00; Stop 08/20/18 at 16:01; Status DC Potassium Chloride/Dextrose/ Sod Cl 1,000 ml @ 75 mls/hr [id number] IV Last administered on 08/23/18at 08:26; Start 08/20/18 at 11:00; Stop 08/24/18 at 09:08; Status DC Warfarin Sodium (Coumadin Per Pharmacy) 1 each PRN DAILY PRN MC SEE COMMENTS Last administered on 08/21/18at 10:35; Start 08/20/18 at 12:00; Stop 08/21/18 at 10:57; Status DC Clonidine HCl (Catapres Tts-2) 1 patch We TD Last administered on 08/27/18at 12:50; Start 08/20/18 at 13:00 Ondansetron HCl (Zofran) 4 mg PRN Q8HRS PRN IV NAUSEA/VOMITING Last a dministered on 08/21/18at 09:04; Start 08/20/18 at 13:15; Stop 08/21/18 at 11:00; Status DC Hydralazine HCl (Apresoline Inj) 10 mg PRN Q2HRS PRN IVP ELEVATED BP, 1ST CHOICE Last administered on 08/22/18at 15:45; Start 08/20/18 at 18:15 Amlodipine Besylate (Norvasc) 5 mg DAILY PO ; Start 08/21/18 at 09:00; Status UNV Amlodipine Besylate (Norvasc) 10 mg DAILY PO Last administered on 08/28/18at 09:04; Start 08/22/18 at 09:00 Amlodipine Besylate (Norvasc) 5 mg 1X ONCE PO Last administered on 08/21/18at 11:19; Start 08/21/18 at 10:15; Stop 08/21/18 at 10:16; Status DC Warfarin Sodium (Coumadin - No Dose Today) 1 each 1X WARF ONCE MC ; Start 08/21/18 at 16:00; Stop 08/21/18 at 16:01; Status DC Phytonadione (Vitamin K Ampule) 5 mg 1X ONCE SQ Last administered on 08/21/18at 11:19; Start 08/21/18 at 11:00; Stop 08/21/18 at 11:07; Status DC Ondansetron HCl (Zofran) 4 mg PRN Q6HRS PRN IV NAUSEA/VOMITING, 1ST CHOICE Last administered on 08/22/18 05:57; Start 08/21/18 at 11:00 Prochlorperazine Edisylate (Compazine) 10 mg PRN Q6HRS PRN IV NAUSEA/VOMITING, 2ND CHOICE Last administered on 08/22/18at 07:41; Start 08/21/18 at 11:00 Fentanyl Citrate (Fentanyl 2ml Vial) 50 mcg PRN Q2HR PRN IV SEVERE PAIN; Start 08/21/18 at 11:00 Multi-Ingredient Mouthwash/Gargle (Gi Cocktail) 20 ml PRN QID PRN PO CHEST PAIN; Start 08/21/18 at 11:00 Polyethylene Glycol (miraLAX PACKET) 17 gm BID PO Last administered on 08/28/18 09:02; Start 08/21/18 at 21:00 Carvedilol (Coreg) 25 mg BIDWMEALS PO Last administered on 08/24/18 08:21; St art 08/22/18 at 17:00; Stop 08/24/18 at 10:26; Status DC Carvedilol (Coreg) 12.5 mg 1X ONCE PO ; Start 08/22/18 at 12:45; Stop 08/22/18 at 12:46; Status DC Bisacodyl (Dulcolax Supp) 10 mg 1X ONCE NE Last administered on 08/22/18at 15:36; Start 08/22/18 at 15:00; Stop 08/22/18 at 15:03; Status DC Albuterol/ Ipratropium (Duoneb) 3 ml RTQID NEB Last administered on 08/28/18 07:28; Start 08/22/18 at 22:00 Metoclopramide HCl (Reglan) 10 mg TIDAC PO Last administered on 08/24/18 08:19; Start 08/23/18 at 09:00; Stop 08/24/18 at 11:40; Status DC Warfarin Sodium (Coumadin Per Pharmacy) 1 each PRN DAILY PRN MC SEE COMMENTS Last administered on 08/27/18 12:15; Start 08/23/18 at 10:15 Warfarin Sodium (Coumadin) 4 mg 1X WARF ONCE PO Last administered on 08/23/18at 16:47; Start 08/23/18 at 16:00; Stop 08/23/18 at 16:01; Status DC Pantoprazole Sodium (Protonix) 40 mg DAILYAC PO Last administered on 08/25/18at 08:19; Start 08/24/18 at 07:30; Stop 08/26/18 at 12:52; Status DC Warfarin Sodium (Coumadin) 5 mg 1X WARF ONCE PO Last administered on 08/24/18at 16:46; Start 08/24/18 at 16:00; Stop 08/24/18 at 16:01; Status DC Labetalol HCl (Trandate) 200 mg BID PO Last administered on 08/28/18at 09:03; Start 08/24/18 at 21:00 Metoclopramide HCl (Reglan) 5 mg PRN TID PRN PO NAUSEA/VOMITING; Start 08/24/18 at 11:45; Stop 08/26/18 at 14:37; Status DC Bisacodyl (Dulcolax Tab) 10 mg 1X ONCE PO Last administered on 08/25/18at 14:04; Start 08/25/18 at 12:00; Stop 08/25/18 at 12:01; Status DC Warfarin Sodium (Coumadin) 6 mg 1X WARF ONCE PO Last administered on 08/25/18at 16:46; Start 08/25/18 at 16:00; Stop 08/25/18 at 16:01; Status DC Ondansetron HCl (Zofran) 4 mg PRN Q6HRS PRN IV NAUSEA/VOMITING; Start 08/26/18 at 07:00; Stop 08/27/18 at 06:59; Status DC Fentanyl Citrate (Fentanyl 2ml Vial) 25 mcg PRN Q5MIN PRN IV MILD PAIN; Start 08/26/18 at 07:00; Stop 08/27/18 at 06:59; Status DC Fentanyl Citrate (Fentanyl 2ml Vial) 50 mcg PRN Q5MIN PRN IV MODERATE TO SEVERE PAIN; Start 08/26/18 at 07:00; Stop 08/27/18 at 06:59; Status DC Morphine Sulfate (Morphine Sulfate) 1 mg PRN Q10MIN PRN IV SEVERE PAIN; Start 08/26/18 at 07:00; Stop 08/27/18 at 06:59; Status DC Ringer's Solution 1,000 ml @ 30 mls/hr Q24H IV ; Start 08/26/18 at 07:00; Stop 08/26/18 at 18:59; Status DC Lidocaine HCl (Xylocaine-Mpf 1% 2ml Vial) 2 ml PRN 1X PRN ID IV START; Start 08/26/18 at 07:00; Stop 08/27/18 at 06:59; Status DC Hydromorphone HCl (Dilaudid) 0.5 mg PRN Q10MIN PRN IV SEV PAIN, Second choice; Start 08/26/18 at 07:00; Stop 08/27/18 at 06:59; Status DC Propofol 20 ml @ As Directed STK-MED ONCE IV ; Start 08/26/18 at 11:51; Stop 08/26/18 at 11:52; Status DC Lidocaine HCl (Lidocaine Pf 2% Vial) 5 ml STK-MED ONCE .ROUTE ; Start 08/26/18 at 11:51; Stop 08/26/18 at 11:52; Status DC Pantoprazole Sodium (Protonix) 40 mg BIDAC PO Last administered on 08/28/18at 05:58; Start 08/26/18 at 16:30 Warfarin Sodium (Coumadin) 7.5 mg 1X WARF ONCE PO Last administered on 08/26/18at 15:42; Start 08/26/18 at 16:00; Stop 08/26/18 at 16:01; Status DC Ephedrine Sulfate (ePHEDrine PF IN SALINE SYRINGE) 50 mg STK-MED ONCE IV ; Start 08/26/18 at 12:00; Stop 08/27/18 at 07:00; Status DC Bisacodyl (Dulcolax Tab) 10 mg 1X ONCE PO Last administered on 08/27/18at 10:39; Start 08/27/18 at 09:30; Stop 08/27/18 at 09:31; Status DC Lubiprostone (Amitiza) 24 mcg BIDWMEALS PO Last administered on 08/28/18at 09:02; Start 08/27/18 at 09:30 Warfarin Sodium (Coumadin) 5 mg 1X WARF ONCE PO Last administered on 08/27/18at 17:54; Start 08/27/18 at 16:00; Stop 08/27/18 at 16:01; Status DC Active Scripts Active Reported Spironolactone 25 Mg Tablet 1 Tab PO BID PRN Warfarin Sodium 5 Mg Tablet 5 Mg PO DAILY Miralax (Polyethylene Glycol 3350) 17 Gm Powd.pack 1 Packet PO DAILY Percocet 10-325 Mg Tablet (Oxycodone/Acetaminophen) 1 Each Tablet 1 Tab PO PRN Q6HRS PRN Metoprolol Tartrate 50 Mg Tablet 1 Tab PO BID Metformin Hcl 500 Mg Tablet 500 Mg PO BIDWMEALS Lisinopril 20 Mg Tablet 1 Tab PO BID Hydrochlorothiazide Tablet (Hydrochlorothiazide) 12.5 Mg Tablet 25 Mg PO DAILY Docusate Sodium 100 Mg Capsule 1 Cap PO BID Clonidine Hcl 0.3 Mg Tablet 1 Tab PO QHS Vitamin D3 (Cholecalciferol (Vitamin D3)) 1,000 Unit Tablet 1 Tab PO DAILY [calcium] Wellbutrin Sr (Bupropion Hcl) 150 Mg Tablet.er 1 Tab PO BID Atorvastatin Calcium 40 Mg Tablet 40 Mg PO HS Aspir-Low (Aspirin) 81 Mg Tablet. 1 Tab PO DAILY Proventil Hfa Inhaler (Albuterol Sulfate) 6.7 Gm Hfa.aer.ad 2 Puff IH PRN Q4HRS PRN Vitals/I & O Vital Sign - Last 24 Hours 08/27/18 08/27/18 08/27/18 08/27/18 11:00 12:15 15:00 15:37 Temp 97.9 98.2 97.9 98.2 Pulse 60 62 Resp 18 18 B/P (MAP) 144/75 (98) 129/70 (89) Pulse Ox 98 98 97 99 O2 Delivery Room Air Room Air Room Air Room Air 08/27/18 08/27/18 08/27/18 08/27/18 19:00 20:07 20:30 20:43 Temp 97.9 97.9 Pulse 57 68 Resp 18 B/P (MAP) 169/81 (110) 145/69 Pulse Ox 99 99 O2 Delivery Room Air Room Air Room Air 08/27/18 08/27/18 08/28/18 08/28/18 20:43 23:00 03:00 07:00 Temp 98.4 98.2 98.4 98.2 Pulse 68 64 62 65 Resp 18 18 16 B/P (MAP) 145/69 169/84 (112) 137/76 (96) 169/79 (109) Pulse Ox 98 99 97 O2 Delivery Room Air Room Air Room Air 08/28/18 08/28/18 08/28/18 08/28/18 07:28 09:03 09:03 09:04 Pulse 65 65 65 B/P (MAP) 169/79 169/79 169/79 Pulse Ox 96 O2 Delivery Room Air Intake and Output 08/27/18 08/27/18 08/28/18 14:59 22:59 06:59 Intake Total 740 ml 570 ml Balance 740 ml 570 ml FREDDIE HELLER MD August 28, 2018 09:51
[2018-08-28 11:00] VITALS: BP 139/81
--- NOTE | 2018-08-28 11:38 | PDOC ---
Subjective: Subjective: No complaints. Objective: Objective: Per RN - awaiting insurance approval for [facility]. Vital Signs: Vital Signs Date Time Temp Pulse Resp B/P (MAP) Pulse Ox O2 Delivery O2 Flow Rate FiO2 08/28/18 11:14 96 Room Air 08/28/18 09:04 65 169/79 08/28/18 07:00 16 08/28/18 03:00 98.2 98.2 Labs: PART A: duodenum - BIOPSY FROM BULB AND 1ST PART OF DUODENUM. Modifiers: BULB, first PART B: stomach - GASTRIC BIOPSY PART C: esophagus - GE JUNCTION Clinical history: Abdominal pain Diagnosis: A. Duodenal biopsies, duodenal bulb and first portion of duodenum: - Focal mild nonspecific duodenitis. B. Gastric biopsies: - Active chronic gastritis, moderate to marked, with small focus of intestinal metaplasia and with Helicobacter organisms identified. C. Gastroesophageal junction biopsies: - Segments of gastric and esophagogastric mucosa showing focally active moderate to marked chronic inflammation. Comment: Sections of the duodenal bulb and first portion of duodenum biopsies reveal segments of duodenal mucosa showing focal congestion and mild chronic inflammation with focally prominent submucosal Glo's glands. There are no sprue-like changes. Sections of the gastric biopsy reveal segments of gastric body and gastric antral mucosa showing moderate to marked active chronic inflammation with a small focus of intestinal metaplasia. A properly controlled immunoperoxidase stain for Helicobacter reveals prominent numbers of Helicobacter organisms primarily associated with the gastric body mucosa. There is no evidence of malignancy. Sections of the gastroesophageal junction biopsy reveal segments of gastric mucosa, one of which has a small portion of squamous esophageal mucosa. There is focally active moderate to marked chronic inflammation. There is no evidence of Vargas's change, dysplasia, or malignancy. PE: GEN: NAD - taking a sponge bath - we spoke through the door NEURO/PSYCH: A & O 3 A/P: N/v - resolved Gastritis, duodenitis - path as above w/ +H. pylori -- Left Rx for (generic) Pylera (has PCN allergy) + PPI w/ RN. Follow-up w/ Dr. Yeung in 2 weeks, plans for surveillance EGD in 2 years. PEDRO JONES August 28, 2018 11:38
--- NOTE | 2018-08-28 12:26 | NUR ---
GENESIS following for discharge planning. Discussed with RN, pt is ready to discharge to [facility], pending insurance auth. Cammy from [facility] advised GENESIS, [facility]'s computers were down yesterday so they were unable to give SNU auth. GENESIS met with pt at pt's request, pt advised her son's car broke down so she was worried he wouldn't be able to get pt's inhalers. GENESIS phoned pt's son, Kev, he advised his truck is being fixed now and he should still be able to get the inhalers to [facility]. SW awaiting auth from [facility]. GENESIS will continue to follow.
--- NOTE | 2018-08-28 14:18 | SNU/HH DC ---
DISCHARGE ORDERS DISCHARGE INFORMATION: FINAL DIAGNOSIS Problems Medical Problems: (1) Diarrhea Status: Acute (2) Elevated serum creatinine Status: Acute (3) Hypertension Status: Acute (4) Vomiting Status: Acute CONDITION ON DISCHARGE: Stable CODE STATUS: Code Status: Full SENIOR LIVING: SNF STAY <30 DAYS: Yes HOSPICE: HOSPICE: No HOSPICE EVAL & TREAT: No LTAC: ADMIT TO LTAC: No POST DISCHARGE ORDERS: ACTIVITY ORDERS: Activity as tolerated DIET AFTER DISCHARGE: Cardiac CHECKS AFTER DISCHARGE: CHECKS AFTER DISCHARGE: Check blood press - daily TREATMENT/EQUIPMENT ORDERS: Physical Therapy For: Evalulation/Treatment Occupational Therapy For: Evaluation/Treatment Speech Language Pathology For: Evaluation/Treatment DISCHARGE MEDICATIONS: Home Meds Reported Medications Spironolactone (SPIRONOLACTONE) 25 Mg Tablet, 1 TAB PO BID PRN for diuretic, #90 TAB 1 Refill 08/20/18 Warfarin Sodium (WARFARIN SODIUM) 5 Mg Tablet, 5 MG PO DAILY for blood thinner, #30 TAB 08/20/18 Polyethylene Glycol 3350 (MIRALAX) 17 Gm Powd.pack, 1 PACKET PO DAILY for constiopation, #30 PACKET 3 Refills 08/20/18 Oxycodone/Apap 10-325 (PERCOCET 10-325 MG TABLET ) 1 Each Tablet, 1 TAB PO PRN Q6HRS PRN for PAIN, TAB 0 Refills 08/20/18 Metoprolol Tartrate (METOPROLOL TARTRATE) 50 Mg Tablet, 1 TAB PO BID for htn, #60 TAB 5 Refills 08/20/18 Metformin Hcl (METFORMIN HCL) 500 Mg Tablet, 500 MG PO BIDWMEALS for ANTI- DIABETIC, TAB 0 Refills 08/20/18 Lisinopril (LISINOPRIL) 20 Mg Tablet, 1 TAB PO BID for htn, #30 TAB 5 Refills 08/20/18 Hydrochlorothiazide (HYDROCHLOROTHIAZIDE TABLET) 12.5 Mg Tablet, 25 MG PO DAILY for DIURETIC, TAB 0 Refills 08/20/18 Docusate Sodium (DOCUSATE SODIUM) 100 Mg Capsule, 1 CAP PO BID for constipation, #30 CAP 08/20/18 Clonidine Hcl (CLONIDINE HCL) 0.3 Mg Tablet, 1 TAB PO QHS for htn, #30 TAB 2 Refills 08/20/18 Cholecalciferol (Vitamin D3) (VITAMIN D3) 1,000 Unit Tablet, 1 TAB PO DAILY for supplement, #30 TAB 5 Refills 08/20/18 [calcium] No Conflict Check 08/20/18 Bupropion Hcl (WELLBUTRIN SR) 150 Mg Tablet.er, 1 TAB PO BID for depression, #60 TAB 5 Refills 08/20/18 Atorvastatin Calcium (ATORVASTATIN CALCIUM) 40 Mg Tablet, 40 MG PO HS for FOR CHOLESTEROL, #30 TAB 0 Refills 08/20/18 Aspirin (ASPIR-LOW) 81 Mg Tablet.dr, 1 TAB PO DAILY for blood thinner, #30 TAB 3 Refills 08/20/18 Albuterol Sulfate (PROVENTIL HFA INHALER) 6.7 Gm Hfa.aer.ad, 2 PUFF IH PRN Q4HRS PRN for FOR ASTHMA, INHALER 0 Refills 08/20/18 FREDDIE HELLER MD August 28, 2018 14:18
[2018-08-28 15:00] VITALS: BP 148/73
[2018-08-28] MEDS ORDERED: WARFARIN 5 MG TABLET. PO ONE (16:00)
--- NOTE | 2018-08-28 16:32 | NUR ---
Discharge continuing care plan needs to be redone due to medications not matching. Pt to transport to [facility] at some stage tomorrow (08/29/18). RN notified. SW will continue to follow.
[2018-08-28 19:20] VITALS: BP 155/88
[2018-08-28] MEDS: ATORVASTATIN CALCIUM 40 MG TABLET. PO SCH (20:43)
[2018-08-28 23:07] VITALS: BP 127/55
[2018-08-29 02:53] VITALS: BP 157/81
[2018-08-29 07:00] VITALS: BP 147/78
[2018-08-29] MEDS: IPRATRPIUM/ALBUTEROL 0.5/2.5MG 3 ML NEBU. NEB SCH ×3 (07:08→14:57)
[2018-08-29 07:27] LABS: PROTHROMBIN TIME PATIENT 22.8 SEC (11.7-14.0)
[2018-08-29] MEDS: POLYETHYLENE GLYCOL 3350 17 GM PACKET. PO SCH (09:00)
[2018-08-29] MEDS: PANTOPRAZOLE 40 MG TABLET.DR. PO SCH (09:01)
[2018-08-29] MEDS: LUBIPROSTONE 8 MCG CAPSULE PO SCH (09:01)
[2018-08-29] MEDS: LISINOPRIL 20 MG TABLET PO SCH (09:01)
[2018-08-29] MEDS: DOCUSATE SODIUM 100 MG CAPSULE. PO SCH (09:01)
[2018-08-29] MEDS: buPROPion SR 150 MG TABLET.SA PO SCH (09:02)
[2018-08-29] MEDS: amLODIPine BESYLATE 5 MG TABLET PO SCH (09:02)
[2018-08-29] MEDS: ASPIRIN ENTERIC COATED 81 MG TABLET.DR. PO SCH (09:02)
[2018-08-29] MEDS: LABETALOL HCL 200 MG TABLET PO SCH (09:03)
--- NOTE | 2018-08-29 10:33 | PDOC ---
PROGRESS NOTES Chief Complaint Chief Complaint IMPRESSION 1. GASTROPARESIS - NEW Dx - DELAYED GET - 08/22/18, IMPROVED 2. Abdominal pain/n/v,some hematemesis - the latter resolved 3. LONG standing DM 4. Accelerated HTN: likely sec to constant retching - crads has made adjustments today 08/24/18 5. HLP 6. Hx of CVA 7. 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 CORINNE 9. Obesity BMI 42 10. Supra Therapeutic INR with mild hematemesis nOW SUBTHERAPEUTIC 11. HYpokalemia sec to emesis and poor po - CORRECTED 12. reported dysphagia plan awaiting insurance approval for [facility]. EGD IN noted inflammation and congestion in pre-pyloric and duodenum on EGD - biopsies pending. low fiber/fat diet, small frequent meals. Continue PPI and Miralax - apparently no results from support ST Swallow screen GI CONSULTED d/c delayed to snf now d/c 08/29 History of Present Illness History of Present Illness Second day that she is much better in terms of the nausea an GET is abN - delayed Initially had INR of 4 with some hematemesis with vomiting-initially planned for EGD but that did not push through hence got vitamin K and Coumadin was on hold Now INR 1.4. Needs to be on lifetime Coumadin for DVT PE history blood pressure on the high side,-I have discussed with cardiology, they made adjustments today grand daughter at bedside had a lot of questions and we have provided appropriate answers to her content and provided even copies of her tests Plan Okay transfer out of [facility] to a nonmonitored bed Continue blood pressure checks every 4 which is protocol on the floors Warfarin per pharmacy She did get 4 mg of warfarin yesterday and INR is today 1.4 INR check tomorrow PT recommended SNU and granddaughter agreeable Consult social work DC K containing IVF as potassium is already normal and she is starting by mouth intake Possibly home tomorrow with new blood pressure regimen to SNU Full code Vitals Vitals Vital Signs Date Time Temp Pulse Resp B/P (MAP) Pulse Ox O2 Delivery O2 Flow Rate FiO2 08/29/18 09:03 69 147/78 08/29/18 07:09 100 Room Air 08/29/18 07:00 98.0 18 98.0 Physical Exam General: Alert, Oriented X3, Cooperative, No acute distress Heart: Regular rate (Sr no ectopies), Normal S1, Normal S2, No murmurs Lungs: Clear Abdomen: Normal bowel sounds, Soft, No tenderness Extremities: No cyanosis, No edema Skin: No breakdown, No significant lesion Labs LABS Laboratory Tests Test 08/29/18 06:15 Prothrombin Time 22.8 SEC (11.7-14.0) Prothromb Time International Ratio 2.0 (0.8-1.1) Assessment and Plan Assessmemt and Plan Problems Medical Problems: (1) Diarrhea Status: Acute (2) Elevated serum creatinine Status: Acute (3) Hypertension Status: Acute (4) Vomiting Status: Acute Comment Review of Relevant I have reviewed the following items grady (where applicable) has been applied. Labs Laboratory Tests Test 08/29/18 06:15 Prothrombin Time 22.8 SEC (11.7-14.0) Prothromb Time International Ratio 2.0 (0.8-1.1) Laboratory Tests Test 08/29/18 06:15 Prothrombin Time 22.8 SEC (11.7-14.0) Prothromb Time International Ratio 2.0 (0.8-1.1) Medications Current Medications Ondansetron HCl (Zofran) 4 mg 1X ONCE IM Last administered on 08/19/18at 13:58; Start 08/19/18 at 14:00; Stop 08/19/18 at 14:01; Status DC Sodium Chloride 1,000 ml @ 1,000 mls/hr 1X ONCE IV Last administered on 08/19/18at 14:42; Start 08/19/18 at 14:30; Stop 08/19/18 at 15:29; Status DC Ondansetron HCl (Zofran) 4 mg PRN Q8HRS PRN IV NAUSEA/VOMITING Last administered on 08/20/18at 12:59; Start 08/19/18 at 15:45; Stop 08/20/18 at 15:44; Status DC Morphine Sulfate (Morphine Sulfate) 2 mg PRN Q2HR PRN IV PAIN; Start 08/19/18 at 15:45; Stop 08/20/18 at 15:44; Status DC Hydralazine HCl (Apresoline Inj) 10 mg 1X ONCE IVP Last administered on 08/19/18at 17:25; Start 08/19/18 at 17:15; Stop 08/19/18 at 17:17; Status DC Metoclopramide HCl (Reglan Vial) 10 mg 1X ONCE IV Last administered on 08/19/18at 18:32; Start 08/19/18 at 18:15; Stop 08/19/18 at 18:16; Status DC Amlodipine Besylate (Norvasc) 5 mg 1X ONCE PO ; Start 08/19/18 at 19:30; Stop 08/19/18 at 19:31; Status DC Amlodipine Besylate (Norvasc) 5 mg DAILY PO Last administered on 08/21/18at 09:00; Start 08/20/18 at 09:00; Stop 08/21/18 at 10:05; Status DC Lisinopril (Prinivil) 20 mg DAILY PO Last administered on 08/20/18at 09:09; Start 08/20/18 at 09:00; Stop 08/20/18 at 10:45; Status DC Lisinopril (Prinivil) 20 mg 1X ONCE PO ; Start 08/19/18 at 19:30; Stop 08/19/18 at 19:31; Status DC Enoxaparin Sodium (Lovenox Per Pharmacy Prophylaxis Dosing) 1 each PRN DAILY PRN MC SEE COMMENTS; Start 08/19/18 at 20:15; Stop 08/20/18 at 11:44; Status DC Enoxaparin Sodium (Lovenox 40mg Syringe) 40 mg Q12H SQ Last administered on 08/19/18at 21:31; Start 08/19/18 at 21:00; Stop 08/20/18 at 11:44; Status DC Clonidine HCl (Catapres Tts-1) 1 patch WEEKLY TD Last administered on 08/19/18at 21:30; Start 08/19/18 at 21:00; Stop 08/20/18 at 11:33; Status DC Pantoprazole Sodium (PROTONIX VIAL for IV PUSH) 40 mg BIDAC IVP Last administered on 08/23/18at 08:09; Start 08/20/18 at 09:00; Stop 08/23/18 at 16:22; Status DC Carvedilol (Coreg) 12.5 mg BIDWMEALS PO Last administered on 08/22/18at 08:52; Start 08/20/18 at 10:30; Stop 08/22/18 at 12:42; Status DC Labetalol HCl (Normodyne Iv Push) 20 mg PRN Q2HR PRN IVP HYPERTENSION, 2ND CHOICE Last administered on 08/20/18 14:18; Start 08/20/18 at 10:15 Aspirin (Ecotrin) 81 mg DAILY PO Last administered on 08/29/18 09:02; Start 08/20/18 at 11:00 Atorvastatin Calcium (Lipitor) 40 mg HS PO Last administered on 08/28/18 20:43; Start 08/20/18 at 21:00 Bupropion HCl (Wellbutrin Sr) 150 mg BID PO Last administered on 08/29/18 09:02; Start 08/20/18 at 21:00 Vitamin D (Vitamin D3) 1,000 unit DAILY PO ; Start 08/20/18 at 11:00; Stop 08/20/18 at 12:53; Status DC Clonidine HCl (Catapres) 0.3 mg QHS PO ; Start 08/20/18 at 21:00; Stop 08/20/18 at 21:00; Status DC Docusate Sodium (Colace) 100 mg BID PO Last administered on 08/29/18 09:01; Start 08/20/18 at 11:00 Lisinopril (Prinivil) 20 mg BID PO Last administered on 08/29/18 09:01; Start 08/20/18 at 21:00 Oxycodone/ Acetaminophen (Percocet 10/325) 1 tab PRN Q6HRS PRN PO PAIN Last administered on 08/25/18 21:52; Start 08/20/18 at 10:45 Hydrochlorothiazide (Hydrodiuril) 25 mg DAILY PO ; Start 08/20/18 at 11:00; Stop 08/20/18 at 12:53; Status DC Polyethylene Glycol (miraLAX PACKET) 17 gm DAILY PO ; Start 08/20/18 at 11:00; Stop 08/21/18 at 15:29; Status DC Spironolactone (Aldactone) 25 mg DAILY PO ; Start 08/20/18 at 12:00; Stop 08/20/18 at 12:53; Status DC Warfarin Sodium (Coumadin) 5 mg 1X WARF ONCE PO Last administered on 08/20/18at 18:51; Start 08/20/18 at 16:00; Stop 08/20/18 at 16:01; Status DC Potassium Chloride/Dextrose/ Sod Cl 1,000 ml @ 75 mls/hr [id number] IV Last administered on 08/23/18at 08:26; Start 08/20/18 at 11:00; Stop 08/24/18 at 09:08; Status DC Warfarin Sodium (Coumadin Per Pharmacy) 1 each PRN DAILY PRN MC SEE COMMENTS Last administered on 08/21/18at 10:35; Start 08/20/18 at 12:00; Stop 08/21/18 at 10:57; Status DC Clonidine HCl (Catapres Tts-2) 1 patch We TD Last administered on 08/27/18at 12:50; Start 08/20/18 at 13:00 Ondansetron HCl (Zofran) 4 mg PRN Q8HRS PRN IV NAUSEA/VOMITING Last administered on 08/21/18at 09:04; Start 08/20/18 at 13:15; Stop 08/21/18 at 11:00; Status DC Hydralazine HCl (Apresoline Inj) 10 mg PRN Q2HRS PRN IVP ELEVATED BP, 1ST C HOICE Last administered on 08/22/18at 15:45; Start 08/20/18 at 18:15 Amlodipine Besylate (Norvasc) 5 mg DAILY PO ; Start 08/21/18 at 09:00; Status UNV Amlodipine Besylate (Norvasc) 10 mg DAILY PO Last administered on 08/29/18at 09:02; Start 08/22/18 at 09:00 Amlodipine Besylate (Norvasc) 5 mg 1X ONCE PO Last administered on 08/21/18at 11:19; Start 08/21/18 at 10:15; Stop 08/21/18 at 10:16; Status DC Warfarin Sodium (Coumadin - No Dose Today) 1 each 1X WARF ONCE MC ; Start 08/21/18 at 16:00; Stop 08/21/18 at 16:01; Status DC Phytonadione (Vitamin K Ampule) 5 mg 1X ONCE SQ Last administered on 08/21/18at 11:19; Start 08/21/18 at 11:00; Stop 08/21/18 at 11:07; Status DC Ondansetron HCl (Zofran) 4 mg PRN Q6HRS PRN IV NAUSEA/VOMITING, 1ST CHOICE Last administered on 08/22/18 05:57; Start 08/21/18 at 11:00 Prochlorperazine Edisylate (Compazine) 10 mg PRN Q6HRS PRN IV NAUSEA/VOMITING, 2ND CHOICE Last administered on 08/22/18 07:41; Start 08/21/18 at 11:00 Fentanyl Citrate (Fentanyl 2ml Vial) 50 mcg PRN Q2HR PRN IV SEVERE PAIN; Start 08/21/18 at 11:00 Multi-Ingredient Mouthwash/Gargle (Gi Cocktail) 20 ml PRN QID PRN PO CHEST PAIN; Start 08/21/18 at 11:00 Polyethylene Glycol (miraLAX PACKET) 17 gm BID PO Last administered on 08/28/18 21:00; Start 08/21/18 at 21:00 Carvedilol (Coreg) 25 mg BIDWMEALS PO Last administered on 08/24/18 08:21; Start 08/22/18 at 17:00; Stop 08/24/18 at 10:26; Status DC Carvedilol (Coreg) 12.5 mg 1X ONCE PO ; Start 08/22/18 at 12:45; Stop 08/22/18 at 12:46; Status DC Bisacodyl (Dulcolax Supp) 10 mg 1X ONCE WI Last administered on 08/22/18at 15:36; Start 08/22/18 at 15:00; Stop 08/22/18 at 15:03; Status DC Albuterol/ Ipratropium (Duoneb) 3 ml RTQID NEB Last administered on 08/29/18 07:08; Start 08/22/18 at 22:00 Metoclopramide HCl (Reglan) 10 mg TIDAC PO Last administered on 08/24/18 08:19; Start 08/23/18 at 09:00; Stop 08/24/18 at 11:40; Status DC Warfarin Sodium (Coumadin Per Pharmacy) 1 each PRN DAILY PRN MC SEE COMMENTS Last administered on 08/28/18 12:28; Start 08/23/18 at 10:15 Warfarin Sodium (Coumadin) 4 mg 1X WARF ONCE PO Last administered on 08/23/18at 16:47; Start 08/23/18 at 16:00; Stop 08/23/18 at 16:01; Status DC Pantoprazole Sodium (Protonix) 40 mg DAILYAC PO Last administered on 08/25/18at 08:19; Start 08/24/18 at 07:30; Stop 08/26/18 at 12:52; Status DC Warfarin Sodium (Coumadin) 5 mg 1X WARF ONCE PO Last administered on 08/24/18at 16:46; Start 08/24/18 at 16:00; Stop 08/24/18 at 16:01; Status DC Labetalol HCl (Trandate) 200 mg BID PO Last administered on 08/29/18at 09:03; Start 08/24/18 at 21:00 Metoclopramide HCl (Reglan) 5 mg PRN TID PRN PO NAUSEA/VOMITING; Start 08/24/18 at 11:45; Stop 08/26/18 at 14:37; Status DC Bisacodyl (Dulcolax Tab) 10 mg 1X ONCE PO Last administered on 08/25/18at 14:04; Start 08/25/18 at 12:00; Stop 08/25/18 at 12:01; Status DC Warfarin Sodium (Coumadin) 6 mg 1X WARF ONCE PO Last administered on 08/25/18at 16:46; Start 08/25/18 at 16:00; Stop 08/25/18 at 16:01; Status DC Ondansetron HCl (Zofran) 4 mg PRN Q6HRS PRN IV NAUSEA/VOMITING; Start 08/26/18 at 07:00; Stop 08/27/18 at 06:59; Status DC Fentanyl Citrate (Fentanyl 2ml Vial) 25 mcg PRN Q5MIN PRN IV MILD PAIN; Start 08/26/18 at 07:00; Stop 08/27/18 at 06:59; Status DC Fentanyl Citrate (Fentanyl 2ml Vial) 50 mcg PRN Q5MIN PRN IV MODERATE TO SEVERE PAIN; Start 08/26/18 at 07:00; Stop 08/27/18 at 06:59; Status DC Morphine Sulfate (Morphine Sulfate) 1 mg PRN Q10MIN PRN IV SEVERE PAIN; Start 08/26/18 at 07:00; Stop 08/27/18 at 06:59; Status DC Ringer's Solution 1,000 ml @ 30 mls/hr Q24H IV ; Start 08/26/18 at 07:00; Stop 08/26/18 at 18:59; Status DC Lidocaine HCl (Xylocaine-Mpf 1% 2ml Vial) 2 ml PRN 1X PRN ID IV START; Start 08/26/18 at 07:00; Stop 08/27/18 at 06:59; Status DC Hydromorphone HCl (Dilaudid) 0.5 mg PRN Q10MIN PRN IV SEV PAIN, Second choice; Start 08/26/18 at 07:00; Stop 08/27/18 at 06:59; Status DC Propofol 20 ml @ As Directed STK-MED ONCE IV ; Start 08/26/18 at 11:51; Stop 08/26/18 at 11:52; Status DC Lidocaine HCl (Lidocaine Pf 2% Vial) 5 ml STK-MED ONCE .ROUTE ; Start 08/26/18 at 11:51; Stop 08/26/18 at 11:52; Status DC Pantoprazole Sodium (Protonix) 40 mg BIDAC PO Last administered on 08/29/18at 09:01; Start 08/26/18 at 16:30 Warfarin Sodium (Coumadin) 7.5 mg 1X WARF ONCE PO Last administered on 08/26/18 at 15:42; Start 08/26/18 at 16:00; Stop 08/26/18 at 16:01; Status DC Ephedrine Sulfate (ePHEDrine PF IN SALINE SYRINGE) 50 mg STK-MED ONCE IV ; Start 08/26/18 at 12:00; Stop 08/27/18 at 07:00; Status DC Bisacodyl (Dulcolax Tab) 10 mg 1X ONCE PO Last administered on 08/27/18at 10:39; Start 08/27/18 at 09:30; Stop 08/27/18 at 09:31; Status DC Lubiprostone (Amitiza) 24 mcg BIDWMEALS PO Last administered on 08/29/18at 09:01; Start 08/27/18 at 09:30 Warfarin Sodium (Coumadin) 5 mg 1X WARF ONCE PO Last administered on 08/27/18at 17:54; Start 08/27/18 at 16:00; Stop 08/27/18 at 16:01; Status DC Warfarin Sodium (Coumadin) 5 mg 1X WARF ONCE PO Last administered on 08/28/18at 18:12; Start 08/28/18 at 16:00; Stop 08/28/18 at 16:01; Status DC Active Scripts Active Labetalol Hcl 200 Mg Tablet 200 Mg PO BID 14 Days Clonidine Tts-2 (Clonidine) 1 Each Patch.tdwk 1 Patch TD WE 30 Days Reported Warfarin Sodium 5 Mg Tablet 5 Mg PO DAILY Miralax (Polyethylene Glycol 3350) 17 Gm Powd.pack 1 Packet PO DAILY Lisinopril 20 Mg Tablet 1 Tab PO BID Hydrochlorothiazide Tablet (Hydrochlorothiazide) 12.5 Mg Tablet 25 Mg PO DAILY Docusate Sodium 100 Mg Capsule 1 Cap PO BID Clonidine Hcl 0.3 Mg Tablet 1 Tab PO QHS Vitamin D3 (Cholecalciferol (Vitamin D3)) 1,000 Unit Tablet 1 Tab PO DAILY [calcium] Wellbutrin Sr (Bupropion Hcl) 150 Mg Tablet.er 1 Tab PO BID Atorvastatin Calcium 40 Mg Tablet 40 Mg PO HS Aspir-Low (Aspirin) 81 Mg Tablet.dr 1 Tab PO DAILY Proventil Hfa Inhaler (Albuterol Sulfate) 6.7 Gm Hfa.aer.ad 2 Puff IH PRN Q4HRS PRN Vitals/I & O Vital Sign - Last 24 Hours 08/28/18 08/28/18 08/28/18 08/28/18 11:00 11:14 15:00 16:11 Temp 97.8 97.9 97.8 97.9 Pulse 70 60 Resp 16 16 B/P (MAP) 139/81 (100) 148/73 (98) Pulse Ox 99 96 95 95 O2 Delivery Room Air Room Air Room Air Room Air 08/28/18 08/28/18 08/28/18 08/28/18 19:20 20:00 20:02 20:43 Temp 98.3 98.3 Pulse 65 65 Resp 20 B/P (MAP) 155/88 (110) 155/88 Pulse Ox 98 96 O2 Delivery Room Air Room Air Room Air 08/28/18 08/28/18 08/29/18 08/29/18 20:44 23:07 02:53 07:00 Temp 97.8 98.1 98.0 97.8 98.1 98.0 Pulse 65 72 70 69 Resp 18 18 18 B/P (MAP) 155/88 127/55 (79) 157/81 (106) 147/78 (101) Pulse Ox 97 97 100 O2 Delivery Room Air Room Air Room Air 08/29/18 08/29/18 08/29/18 08/29/18 07:09 09:01 09:02 09:03 Pulse 69 69 69 B/P (MAP) 147/78 147/78 147/78 Pulse Ox 100 O2 Delivery Room Air Intake and Output 08/28/18 08/28/18 08/29/18 15:00 23:00 07:00 Intake Total 480 ml Balance 480 ml FREDDIE HELLER MD August 29, 2018 10:33
[2018-08-29 11:00] VITALS: BP 125/70
--- NOTE | 2018-08-29 11:22 | SNU/HH DC ---
DISCHARGE ORDERS DISCHARGE INFORMATION: FINAL DIAGNOSIS Problems Medical Problems: (1) Diarrhea Status: Acute (2) Elevated serum creatinine Status: Acute (3) Hypertension Status: Acute (4) Vomiting Status: Acute CONDITION ON DISCHARGE: Stable CODE STATUS: Code Status: Full JAIL: SNF STAY <30 DAYS: Yes HOSPICE: HOSPICE: No HOSPICE EVAL & TREAT: No LTAC: ADMIT TO LTAC: No POST DISCHARGE ORDERS: ACTIVITY ORDERS: Activity as tolerated DIET AFTER DISCHARGE: Cardiac CHECKS AFTER DISCHARGE: CHECKS AFTER DISCHARGE: Check blood press - daily TREATMENT/EQUIPMENT ORDERS: Physical Therapy For: Evalulation/Treatment Occupational Therapy For: Evaluation/Treatment Speech Language Pathology For: Evaluation/Treatment DISCHARGE MEDICATIONS: Home Meds Active Scripts Amlodipine Besylate (AMLODIPINE BESYLATE) 5 Mg Tablet, 10 MG PO DAILY for BLOOD PRESSURE for 30 Days, #60 TAB Prov:FREDDIE HELLER MD 08/27/18 Labetalol Hcl (LABETALOL HCL) 200 Mg Tablet, 200 MG PO BID for BLOOD PRESSURE for 14 Days, #28 TAB Prov:FREDDIE HELLER MD 08/27/18 Clonidine (CLONIDINE TTS-2) 1 Each Patch.tdwk, 1 PATCH TD We for BP for 30 Days, #10 PATCH Prov:FREDDIE HELLER MD 08/27/18 Reported Medications Warfarin Sodium (WARFARIN SODIUM) 5 Mg Tablet, 5 MG PO DAILY for blood thinner, #30 TAB 08/20/18 Polyethylene Glycol 3350 (MIRALAX) 17 Gm Powd.pack, 1 PACKET PO DAILY for constiopation, #30 PACKET 3 Refills 08/20/18 Lisinopril (LISINOPRIL) 20 Mg Tablet, 1 TAB PO BID for htn, #30 TAB 5 Refills 08/20/18 Hydrochlorothiazide (HYDROCHLOROTHIAZIDE TABLET) 12.5 Mg Tablet, 25 MG PO DAILY for DIURETIC, TAB 0 Refills 08/20/18 Docusate Sodium (DOCUSATE SODIUM) 100 Mg Capsule, 1 CAP PO BID for constipation, #30 CAP 08/20/18 Clonidine Hcl (CLONIDINE HCL) 0.3 Mg Tablet, 1 TAB PO QHS for htn, #30 TAB 2 Refills 08/20/18 Cholecalciferol (Vitamin D3) (VITAMIN D3) 1,000 Unit Tablet, 1 TAB PO DAILY for supplement, #30 TAB 5 Refills 08/20/18 [calcium] No Conflict Check 08/20/18 Bupropion Hcl (WELLBUTRIN SR) 150 Mg Tablet.er, 1 TAB PO BID for depression, #60 TAB 5 Refills 08/20/18 Atorvastatin Calcium (ATORVASTATIN CALCIUM) 40 Mg Tablet, 40 MG PO HS for FOR CHOLESTEROL, #30 TAB 0 Refills 08/20/18 Aspirin (ASPIR-LOW) 81 Mg Tablet.dr, 1 TAB PO DAILY for blood thinner, #30 TAB 3 Refills 08/20/18 Albuterol Sulfate (PROVENTIL HFA INHALER) 6.7 Gm Hfa.aer.ad, 2 PUFF IH PRN Q4HRS PRN for FOR ASTHMA, INHALER 0 Refills 08/20/18 Discontinued Reported Medications Spironolactone (SPIRONOLACTONE) 25 Mg Tablet, 1 TAB PO BID PRN for diuretic, #90 TAB 1 Refill 08/20/18 Oxycodone/Apap 10-325 (PERCOCET 10-325 MG TABLET ) 1 Each Tablet, 1 TAB PO PRN Q6HRS PRN for PAIN, TAB 0 Refills 08/20/18 Metoprolol Tartrate (METOPROLOL TARTRATE) 50 Mg Tablet, 1 TAB PO BID for htn, #60 TAB 5 Refills 08/20/18 Metformin Hcl (METFORMIN HCL) 500 Mg Tablet, 500 MG PO BIDWMEALS for ANTI- DIABETIC, TAB 0 Refills 08/20/18 FREDDIE HELLER MD August 29, 2018 11:22
--- NOTE | 2018-08-29 12:08 | NUR ---
SW following. Discussed with RN, pt is ready to discharge to [facility]. [facility] transportation will transport pt at 1445. RN and family notified.
--- NOTE | 2018-08-29 13:54 | NUR ---
Pharmacy Warfarin Dosing Note S: Pharmacy consulted to assist with anticoagulation therapy started O: GIBRAN ALVAREZ is a 73 year old F with DVT/PE LABS: Last INR: 2.0 Last HGB: 13.4 Last HCT: 40.8 Last PLT: 131 Last dose of 5 mg given on 08/28/18 at 1812 Vitamin K given: ON ADMISSION Ongoing Drug Interactions: ASA A:INR of 2.0 is within desired range. Target range for this patient is: 2 -3 P: Warfarin dose: 5 mg Today at 1600 Bridge Therapy: None Next INR due tomorrow Pharmacy anticoagulation service will continue to follow. Nadia Wharton RPH, 08/29/18 [id number]
[2018-08-29] MEDS ORDERED: WARFARIN 5 MG TABLET. PO ONE (15:00)
--- NOTE | 2018-08-29 15:33 | NUR ---
Discharge: Pt DC to [facility] per van accompanied by transport staff. Left with belongings, DC instructions and RX for antibiotics. No concerns Addendum: 08/29/18 at 1535 by CECIL BANUELOS RN TR called to Ana
== END 2018-08-29 15:35 | DRG 682 ==
LOC: ER 12:56 → 5 NORTH 15:43 → OBSVTOIN 15:59 → 2 NORTH 08-20 19:53 → 4 NORTH 08-24 12:00
PROVIDERS: ADMIT Internal Medicine; ATTEND Internal Medicine
DX: N17.0 Acute kidney failure with tubular necrosis (principal); G93.41 Metabolic encephalopathy; Z68.41 Body mass index [BMI] 40.0-44.9, adult; A08.4 Viral intestinal infection, unspecified; E11.43 Type 2 diabetes mellitus with diabetic autonomic (poly)neuropathy; K29.70 Gastritis, unspecified, without bleeding; K29.80 Duodenitis without bleeding; K31.84 Gastroparesis; K30 Functional dyspepsia; E86.0 Dehydration; E87.6 Hypokalemia; E66.9 Obesity, unspecified; E78.00 Pure hypercholesterolemia, unspecified; E78.5 Hyperlipidemia, unspecified; E83.52 Hypercalcemia; F03.90 Unspecified dementia, unspecified severity, without behavioral disturbance, psychotic disturbance, mood disturbance, and anxiety; F17.210 Nicotine dependence, cigarettes, uncomplicated; K21.9 Gastro-esophageal reflux disease without esophagitis; K44.9 Diaphragmatic hernia without obstruction or gangrene; Z96.653 Presence of artificial knee joint, bilateral; I12.9 Hypertensive chronic kidney disease with stage 1 through stage 4 chronic kidney disease, or unspecified chronic kidney disease; E11.22 Type 2 diabetes mellitus with diabetic chronic kidney disease; N18.3 Chronic kidney disease, stage 3 (moderate); K63.5 Polyp of colon; R13.10 Dysphagia, unspecified; R32 Unspecified urinary incontinence; M19.90 Unspecified osteoarthritis, unspecified site; R79.1 Abnormal coagulation profile; T50.2X5A Adverse effect of carbonic-anhydrase inhibitors, benzothiadiazides and other diuretics, initial encounter; Z82.49 Family history of ischemic heart disease and other diseases of the circulatory system; Z86.711 Personal history of pulmonary embolism; Z86.010 Personal history of colon polyps; Z86.718 Personal history of other venous thrombosis and embolism; Z86.73 Personal history of transient ischemic attack (TIA), and cerebral infarction without residual deficits; Z90.710 Acquired absence of both cervix and uterus; Z79.01 Long term (current) use of anticoagulants; Z87.440 Personal history of urinary (tract) infections; Z87.01 Personal history of pneumonia (recurrent); Z88.0 Allergy status to penicillin; Z88.8 Allergy status to other drugs, medicaments and biological substances; Z68.38 Body mass index [BMI] 38.0-38.9, adult; Z90.49 Acquired absence of other specified parts of digestive tract; Z79.4 Long term (current) use of insulin
CPT/HCPCS: 36415; 43239; 74176; 76770; 78264; 80048; 80053; 81001; 82310; 82962; 83690; 83735; 84100; 84443; 85007; 85025; 85027; 85610; 86038; 88305; 88342; 93005; 93306; 94640; 94760; 96361; 96372; 96374; A9541; C9113; G0379; J0171; J0360; J0780; J1650; J2001; J2405; J2704; J2765; J3430; J3490; J7030; J7620; J8597; 92610; 97110; 97116; 97535; 99285-25

== ENCOUNTER 2020-04-15 12:50 | Emergency (ER) | payer OTHER ==
[~2020-04-15] VITALS: Ht 167.6 cm; Wt 104.5 kg
[~2020-04-15 12:50] MED LIST: AMLO-186 PO; ASPI81TA50 PO; ATOR40TA59 PO; BUPR150T8 PO; CHOL10003 PO; CLON0.3T PO; CLON1PAT6 TD; DOCU100C28 PO; HYDR12.58 PO; LABE200T4 PO; LISI-334 PO; METF500T16 PO; METO50TA6 PO; OXYC1TAB22 PO; POLY17PO29 PO; PROVENTIL HFA6.7 GM IH; SPIR25TA5 PO; WARF-31 PO; calcium
[2020-04-15 13:51] LABS: BILIRUBIN,URINE SMALL (NEG); CLARITY,URINE TURBID; COLOR,URINE AMBER; NITRITE,URINE NEGATIVE (NEG); PH,URINE 7.5 (<5.0-8.0); PROTEIN,URINE NEGATIVE (NEG-TRACE)
[2020-04-15 13:59] LABS: AMORPHOUS SEDIMENT,UR PRESENT /HPF; BACTERIA,URINE MODERATE /HPF (0-FEW); HYALINE CASTS, URINE FEW /HPF; RBC,URINE TNTC /HPF (0-2); WBC,URINE TNTC /HPF (0-4)
--- NOTE | 2020-04-15 14:12 | RAD ---
Examination: XR RIBS AND CHEST 4+VIEWS History: l rib pain after recent fall Comparison/Correlation: 04/12/2020 AP view of the chest Findings: A total of 5 images including frontal view of the chest were obtained. No displaced fractur e or bone destruction. Minimal discoid atelectasis involving the left lung noted. No pneumothorax. Ca lcified granulomas in both lung hodges. Osteopenia noted. Left glenohumeral joint degenerative narrow ing is present. Right upper quadrant surgical clips are noted. Impression: No definite infiltrate. No rib fracture identified. Electronically signed by: Kishan Ramon MD (04/15/2020 2:10 PM) [id number]
[2020-04-15] MEDS ORDERED: NYSTATIN TOPICAL POWDER 15GM BOTTLE. TP ONE (14:30)
[2020-04-15 14:42] LABS: BASO % 1 % (0-3); EOS # 0.1 x10^3/uL (0.0-0.7); EOS % 2 % (0-3); HEMATOCRIT 39.8 % (36.0-47.0); HEMOGLOBIN 13.3 g/dL (12.0-15.5); LYMPH # 0.8 x10^3/uL (1.0-4.8); LYMPH % 18 % (24-48); MEAN CORPUSCULAR HEMOGLOBIN 29 pg (25-35); MEAN CORPUSCULAR HGB CONC 33 g/dL (31-37); MEAN CORPUSCULAR VOLUME 88 fL (79-100); MONO # 0.4 x10^3/uL (0.0-1.1); MONO % 9 % (0-9); NEUT # 2.9 x10^3/uL (1.8-7.7); NEUT % 70 % (31-73); PLATELET COUNT 163 x10^3/uL (140-400); RED BLOOD COUNT 4.53 x10^6/uL (3.50-5.40); RED CELL DISTRIBUTION WIDTH 13.8 % (11.5-14.5); WHITE BLOOD COUNT 4.2 x10^3/uL (4.0-11.0)
[2020-04-15 14:50] LABS: CALCIUM 10.4 mg/dL (8.5-10.1); GFR 65.6; POTASSIUM 4.9 mmol/L (3.5-5.1)
[2020-04-15 14:56] LABS: ALBUMIN 3.3 g/dL (3.4-5.0); ALBUMIN/GLOBULIN RATIO 0.8 (1.0-1.7); TOTAL BILIRUBIN 0.7 mg/dL (0.2-1.0); TOTAL PROTEIN 7.3 g/dL (6.4-8.2)
--- NOTE | 2020-04-15 15:10 | ED.ADGEN ---
Past Medical History Past Medical History: CVA, Diabetes-Type II, Hypertension Past Surgical History: Cholecystectomy, Hip Replacement, Hysterectomy, Knee Replacement, Tonsillectomy, Other Additional Past Surgical Histo: BREAST LUMPECTOMY, Smoking Status: Former Smoker Alcohol Use: None Drug Use: None General Adult EDM: Chief Complaint: RIB PAIN HPI: HPI: Patient is a 75 year old AA female who presents to the emergency department with complaints of right rib pain after a fall 3 days ago. She also complains of suprapubic abdominal pain and dysuria that began today. Patient states the reason for her fall 3 days ago was that she tripped. She denies any head, neck, or back pain after the fall. Patient denies any upper abdominal pain, nausea, vomiting, diarrhea, or hematuria. She denies any fever, cough, shortness of breath, or chest pain. She currently rates the pain in her right ribs and 9 out of 10 on the pain scale, she denies any alleviating factors. The pain is worse with movement and palpation. Review of Systems: Review of Systems: Complete ROS is negative unless otherwise noted in HPI. Current Medications: Current Medications Medications (Trade) Dose Ordered Sig/Maximiliano Start Time Stop Time Status Last Admin Dose Admin Ceftriaxone Sodium (Rocephin) 1 gm 1X ONCE 04/15/20 15:15 04/15/20 15:16 DC 04/15/20 16:14 1 GM Nystatin (Nystop) 1 renu 1X ONCE 04/15/20 14:30 04/15/20 14:31 DC 04/15/20 16:14 1 RENU Allergies: Allergies: Allergies Coded Allergies Type Severity Reaction Last Updated Verified Penicillins Allergy Intermediate 09/20/15 Yes iodine Allergy Intermediate 09/20/15 Yes Physical Exam: PE: See Above Constitutional: Well developed, well nourished, no acute distress, non-toxic appearance. [] HENT: Normocephalic, atraumatic, bilateral external ears normal, nose normal. [] Eyes: PERRLA, EOMI, conjunctiva normal, no discharge. [] Neck: Normal range of motion, no stridor. [] Cardiovascular:Heart rate regular rhythm Lungs & Thorax: Respirations even and unlabored, no retractions, no respiratory distress; left lateral and left upper anterior rib tenderness to palpation without crepitus or subcutaneous emphysema; right ribs nontender to palpation Abdomen: soft, suprapubic tenderness to palpation, no rebound tenderness, no guarding; upper abdomen soft and nontender Skin: Warm, dry, no erythema, no rash; bruising noted to left anterior chest appears to be old. [] Extremities: No cyanosis, ROM intact, no edema. [] Neurologic: Alert and oriented X 3, no focal deficits noted. [] Psychologic: Affect normal, judgement normal, mood normal. [] Current Patient Data: Labs: Laboratory Tests Test 04/15/20 13:35 04/15/20 14:35 Urine Collection Type U cath Urine Color Roxy Urine Clarity Turbid Urine pH 7.5 (<5.0-8.0) Urine Specific [place] 1.025 (1.000-1.030) Urine Protein Negative mg/dL (NEG-TRACE) Urine Glucose (UA) Negative mg/dL (NEG) Urine Ketones (Stick) Negative mg/dL (NEG) Urine Blood Large (NEG) Urine Nitrite Negative (NEG) Urine Bilirubin Small (NEG) Urine Urobilinogen Dipstick 1.0 mg/dL (0.2 mg/dL) Urine Leukocyte Esterase Large (NEG) Urine RBC Tntc /HPF (0-2) Urine WBC Tntc /HPF (0-4) Urine Squamous Epithelial Cells Mod /LPF Urine Amorphous Sediment Present /HPF Urine Bacteria Moderate /HPF (0-FEW) Urine Hyaline Casts Few /HPF Urine Mucus Slight /LPF White Blood Count 4.2 x10^3/uL (4.0-11.0) Red Blood Count 4.53 x10^6/uL (3.50-5.40) Hemoglobin 13.3 g/dL (12.0-15.5) Hematocrit 39.8 % (36.0-47.0) Mean Corpuscular Volume 88 fL (79-100) Mean Corpuscular Hemoglobin 29 pg (25-35) Mean Corpuscular Hemoglobin Concent 33 g/dL (31-37) Red Cell Distribution Width 13.8 % (11.5-14.5) Platelet Count 163 x10^3/uL (140-400) Neutrophils (%) (Auto) 70 % (31-73) Lymphocytes (%) (Auto) 18 % (24-48) L Monocytes (%) (Auto) 9 % (0-9) Eosinophils (%) (Auto) 2 % (0-3) Basophils (%) (Auto) 1 % (0-3) Neutrophils # (Auto) 2.9 x10^3/uL (1.8-7.7) Lymphocytes # (Auto) 0.8 x10^3/uL (1.0-4.8) L Monocytes # (Auto) 0.4 x10^3/uL (0.0-1.1) Eosinophils # (Auto) 0.1 x10^3/uL (0.0-0.7) Basophils # (Auto) 0.0 x10^3/uL (0.0-0.2) Sodium Level 136 mmol/L (136-145) Potassium Level 4.9 mmol/L (3.5-5.1) Chloride Level 100 mmol/L (98-107) Carbon Dioxide Level 27 mmol/L (21-32) Anion Gap 9 (6-14) Blood Urea Nitrogen 22 mg/dL (7-20) H Creatinine 1.0 mg/dL (0.6-1.0) Estimated GFR (Cockcroft-Gault) 65.6 BUN/Creatinine Ratio 22 (6-20) H Glucose Level 88 mg/dL (70-99) Calcium Level 10.4 mg/dL (8.5-10.1) H Total Bilirubin 0.7 mg/dL (0.2-1.0) Aspartate Amino Transferase (AST) 33 U/L (15-37) Alanine Aminotransferase (ALT) 26 U/L (14-59) Alkaline Phosphatase 83 U/L (46-116) Total Protein 7.3 g/dL (6.4-8.2) Albumin 3.3 g/dL (3.4-5.0) L Albumin/Globulin Ratio 0.8 (1.0-1.7) L Laboratory Tests 04/15/20 14:35 Laboratory Tests 04/15/20 14:35 Vital Signs: Vital Signs Date Time Temp Pulse Resp B/P (MAP) Pulse Ox O2 Delivery O2 Flow Rate FiO2 04/15/20 12:50 98.1 71 20 139/73 (95) Room Air 98.1 EKG: EKG: [] Heart Score: Risk Factors: Risk Factors: DM, Current or recent (<one month) smoker, HTN, HLP, family history of CAD, obesity. Risk Scores: Score 0 - 3: 2.5% MACE over next 6 weeks - Discharge Home Score 4 - 6: 20.3% MACE over next 6 weeks - Admit for Clinical Observation Score 7 - 10: 72.7% MACE over next 6 weeks - Early Invasive Strategies Radiology/Procedures: Radiology/Procedures: PROCEDURE: RIBS BILAT & PA CXR 4+V Examination: XR RIBS AND CHEST 4+VIEWS History: l rib pain after recent fall Comparison/Correlation: 04/12/2020 AP view of the chest Findings: A total of 5 images including frontal view of the chest were obtained. No displaced fracture or bone destruction. Minimal discoid atelectasis involving the left lung noted. No pneumothorax. Calcified granulomas in both lung hodges. Osteopenia noted. Left glenohumeral joint degenerative narrowing is present. Right upper quadrant surgical clips are noted. Impression: No definite infiltrate. No rib fracture identified. [] Course & Med Decision Making: Course & Med Decision Making Pertinent Labs and Imaging studies reviewed. (See chart for details) 75-year-old female presents emergency room with right rib pain after a fall 3 days prior and suprapubic abdominal pain. Chest x-ray of bilateral ribs is negative for any acute fractures or findings. CBC and CMP were unremarkable. Patient's UA was concerning for urinary tract infection. Patient was given 1 g of IV Rocephin in the emergency department. Prescription written for bactrim DS 1 PO BID x7 days. I discussed these results with the patient and encouraged pt to take 2 deep breaths and cough at least once every hour while awake. May take tylenol or ibuprofen as needed for pain. Return to the ER if symptoms worsen. Pt verbalized an understanding of home care, medications, follow-up, and return to ED instructions and was in agreement with the plan of care. Patient stated that she would like to go home, she did not want to be admitted to the hospital. [] Dragon Disclaimer: Richard Disclaimer: This electronic medical record was generated, in whole or in part, using a voice recognition dictation system. Departure Departure Impression: Primary Impression: UTI (urinary tract infection) Additional Impressions: Flexural candidosis Rib pain on right side Disposition: 01 DC HOME SELF CARE/HOMELESS Condition: STABLE Referrals: KAYLA SNOWDEN (PCP) Patient Instructions: Cutaneous Candidiasis, Rib Contusion, Urinary Tract Infection, [id number] Additional Instructions: Fill prescription(s) and use as directed. Avoid bladder irritants such as caffeine, carbonation, and spicy foods. Increase clear fluids. Take 2 deep breaths every hour while awake as instructed. You can take Tylenol or ibuprofen as needed for pain. Follow up with your primary care doctor if symptoms persist, return to the ER if symptoms worsen. Scripts Sulfamethoxazole/Trimethoprim (BACTRIM DS TABLET) 1 Each Tablet 1 TAB PO BID for 7 Days, #14 TAB 0 Refills Prov: SONDRA ZENDEJAS APRN 04/15/20 Problem Qualifiers Primary Impression: UTI (urinary tract infection) Urinary tract infection type: acute cystitis Hematuria presence: with hematuria Qualified Codes: N30.01 - Acute cystitis with hematuria SONDRA ZENDEJAS APRN Apr 15, 2020 15:10
[2020-04-15] MEDS ORDERED: cefTRIAXone IV Push 1 GM VIAL. IVP ONE (15:15)
[2020-04-15] MEDS ORDERED: SULF1TAB24 PO (15:55)
[2020-04-15 15:58] VITALS: BP 159/92
--- NOTE | 2020-04-18 04:22 | EKG ---
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
== END 2020-04-15 16:17 | disposition home or self-care (01) ==
LOC: ER 12:50
DX: B37.49 Other urogenital candidiasis (principal); R07.81 Pleurodynia; R10.2 Pelvic and perineal pain; R30.0 Dysuria; E11.9 Type 2 diabetes mellitus without complications; I10 Essential (primary) hypertension; Z86.73 Personal history of transient ischemic attack (TIA), and cerebral infarction without residual deficits; Z90.49 Acquired absence of other specified parts of digestive tract; Z90.710 Acquired absence of both cervix and uterus; Z98.890 Other specified postprocedural states; Z87.891 Personal history of nicotine dependence; Z88.0 Allergy status to penicillin; Z91.041 Radiographic dye allergy status
CPT/HCPCS: 36415; 71111; 80053; 81001; 85025; 87086; 96374; 96375; 99285; J0696

== ENCOUNTER 2021-01-19 17:48 | Emergency (ER) | payer OTHER ==
[~2021-01-19] VITALS: Ht 167.6 cm; Wt 94.0 kg
[~2021-01-19 17:48] MED LIST changes: -LISI-334 PO; +LISI20TA18 PO; +SULF1TAB24 PO; +[UNRECOGNIZED DRUG - REMARK] MC
[2021-01-19 18:22] LABS: BASO % 1 % (0-3); EOS # 0.1 x10^3/uL (0.0-0.7); EOS % 3 % (0-3); HEMATOCRIT 36.7 % (36.0-47.0); HEMOGLOBIN 11.8 g/dL (12.0-15.5); LYMPH # 0.7 x10^3/uL (1.0-4.8); LYMPH % 25 % (24-48); MEAN CORPUSCULAR HEMOGLOBIN 29 pg (25-35); MEAN CORPUSCULAR HGB CONC 32 g/dL (31-37); MEAN CORPUSCULAR VOLUME 88 fL (79-100); MONO # 0.4 x10^3/uL (0.0-1.1); MONO % 13 % (0-9); NEUT # 1.7 x10^3/uL (1.8-7.7); NEUT % 60 % (31-73); PLATELET COUNT 126 x10^3/uL (140-400); RED BLOOD COUNT 4.15 x10^6/uL (3.50-5.40); RED CELL DISTRIBUTION WIDTH 14.2 % (11.5-14.5); WHITE BLOOD COUNT 2.9 x10^3/uL (4.0-11.0)
--- NOTE | 2021-01-19 18:53 | PHYS DOC ---
Past Medical History Past Medical History: CVA, Diabetes-Type II, Hypertension Past Surgical History: Other Additional Past Surgical Histo: patient is unsure Smoking Status: Unknown if ever smoked Alcohol Use: None Drug Use: None General Adult EDM: Chief Complaint: ABDOMINAL PAIN HPI: HPI: Patient is a 75 year old female with past medical history of hypertension diabetes previous CVA presents with a chief complaint of abdominal pain. Patient states abdominal pain started 2000 hrs. yesterday evening. Pain was located in the lower abdominal region. Patient states pain comes and goes. Patient states pain is currently a 8 out of 10. She is denies any associated nausea or vomiting she states she has had some diarrhea. Patient denies any chest pain or shortness of breath Patient has a past surgical history of cholecystectomy and hysterectomy. Review of Systems: Review of Systems: Review of systems: Constitutional symptoms- No fever, no chills. Eyes- No Discharge, No Visual Loss Respiratory symptoms- No shortness of breath, No wheezing, No Dyspnea on Exertion Cardiovascular Systems; No chest pain, No Palpitations, No syncope Gastrointestinal symptoms: Positive abdominal pain, no nausea, no vomiting Positive diarrhea. Genitourinary symptoms: No dysuria. Musculoskeletal symptoms: No back pain No extremity pain. NEUROLOGICAL Symptoms: No headache, no generalized weakness; No focal Weakness Skin: No rash. Heart Score: C/O Chest Pain: N/A Risk Factors: Risk Factors: DM, Current or recent (<one month) smoker, HTN, HLP, family history of CAD, obesity. Risk Scores: Score 0 - 3: 2.5% MACE over next 6 weeks - Discharge Home Score 4 - 6: 20.3% MACE over next 6 weeks - Admit for Clinical Observation Score 7 - 10: 72.7% MACE over next 6 weeks - Early Invasive Strategies Allergies: Allergies: Allergies Coded Allergies Type Severity Reaction Last Updated Verified Penicillins Allergy Intermediate 01/19/21 Yes iodine Allergy Intermediate 01/19/21 Yes Physical Exam: PE: General: alert, no acute distress. Skin: warm, dry and intact, no erythema, no rash. HENT: bilateral external ears normal, oropharynx moist, nose normal. Head:: Normocephalic, atraumatic. Neck: Trachea midline. Eyes: EOMI, Normal conjunctiva, No drainage CARDIOVASCULAR: Regular rate and rhythm RESPIRATORY: No respiratory distress Back: Full range of motion. MUSCULOSKELETAL: Full range of motion of bilateral upper and lower extremities. GASTROINTESTINAL: Abdomen soft without rebound or guarding. Tenderness bilateral lower quadrants NEUROLOGICAL: Alert and noted to person, place and time. No neurological deficits observed Psychiatric: Cooperative. Normal judgment Current Patient Data: Labs: Laboratory Tests Test 01/19/21 18:15 White Blood Count 2.9 x10^3/uL (4.0-11.0) L Red Blood Count 4.15 x10^6/uL (3.50-5.40) Hemoglobin 11.8 g/dL (12.0-15.5) L Hematocrit 36.7 % (36.0-47.0) Mean Corpuscular Volume 88 fL (79-100) Mean Corpuscular Hemoglobin 29 pg (25-35) Mean Corpuscular Hemoglobin Concent 32 g/dL (31-37) Red Cell Distribution Width 14.2 % (11.5-14.5) Platelet Count 126 x10^3/uL (140-400) L Neutrophils (%) (Auto) 60 % (31-73) Lymphocytes (%) (Auto) 25 % (24-48) Monocytes (%) (Auto) 13 % (0-9) H Eosinophils (%) (Auto) 3 % (0-3) Basophils (%) (Auto) 1 % (0-3) Neutrophils # (Auto) 1.7 x10^3/uL (1.8-7.7) L Lymphocytes # (Auto) 0.7 x10^3/uL (1.0-4.8) L Monocytes # (Auto) 0.4 x10^3/uL (0.0-1.1) Eosinophils # (Auto) 0.1 x10^3/uL (0.0-0.7) Basophils # (Auto) 0.0 x10^3/uL (0.0-0.2) Laboratory Tests 01/19/21 18:15 Vital Signs: Vital Signs Date Time Temp Pulse Resp B/P (MAP) Pulse Ox O2 Delivery O2 Flow Rate FiO2 01/19/21 17:56 98.1 64 16 177/95 (122) 96 Room Air 98.1 EKG: EKG: [] Radiology/Procedures: Radiology/Procedures: [] Impression: Evaluation of solid organs is limited without contrast. 9.5 similar fat-containing mass in the subcutis fat of over the lateral right abdominal wall is seen previously and is consistent with a lipoma. The appendix is normal. There is beam Rivero artifact due to dynamic hip screw from prior left hip fracture repair. There is prior cholecystectomy. There is calcification of the aorta and great vessels without aneurysm. Liver: Normal. Spleen: Normal. Pancreas: Normal. Adrenal Glands: Normal. Kidneys: Normal. There is no free air or free fluid. There is no lymphadenopathy. The urinary bladder appears normal. There is no pericolonic inflammation identified. Impression: No acute findings. End impression PQRS Compliance Statement: Course & Med Decision Making: Course & Med Decision Making Pertinent Labs and Imaging studies reviewed. (See chart for details) []Patient evaluate for chief complaint. Workup consisted of labs and radiologic imaging. Results reviewed and discussed with patient. Richard Disclaimer: Richard Disclaimer: This electronic medical record was generated, in whole or in part, using a voice recognition dictation system. Departure Departure Impression: Primary Impression: Abdominal pain Disposition: HOME / SELF CARE / HOMELESS Condition: STABLE Referrals: KAYLA SNOWDEN (PCP) BIA GARCIA DO Jan 19, 2021 18:53
[2021-01-19 18:54] LABS: CREATININE 1.1 mg/dL (0.6-1.0); GFR 58.7
[2021-01-19 19:00] LABS: ALBUMIN 3.5 g/dL (3.4-5.0); ALBUMIN/GLOBULIN RATIO 0.9 (1.0-1.7); TOTAL BILIRUBIN 0.4 mg/dL (0.2-1.0); TOTAL PROTEIN 7.5 g/dL (6.4-8.2)
--- NOTE | 2021-01-19 19:16 | RAD ---
Abdominal and Pelvis CT, Without Contrast: History: Reason: abd pain / Spl. Instructions: / History: Comparison: August 19, 2018. Procedure: Axial images are obtained of the abdomen and pelvis, without IV or oral contrast. Oral Contrast: No Findings: Evaluation of solid organs is limited without contrast. 9.5 similar fat-containing mass in the subcutis fat of over the lateral right abdominal wall is seen previously and is consistent with a lipoma. The appendix is normal. There is beam Rivero artifact due to dynamic hip screw from prior left hip fracture repair. There is prior cholecystectomy. There is calcification of the aorta and great vessels without aneurys m. Liver: Normal. Spleen: Normal. Pancreas: Normal. Adrenal Glands: Normal. Kidneys: Normal. There is no free air or free fluid. There is no lymphadenopathy. The urinary bladder appears normal. There is no pericolonic inflammation identified. Impression: No acute findings. End impression PQRS Compliance Statement: One or more of the following individualized dose reduction techniques were utilized for this examinat ion: 1. Automated exposure control 2. Adjustment of the mA and/or kV according to patient size 3. Use of iterative reconstruction technique Electronically signed by: Joseph Vogt III, MD (01/19/2021 7:14 PM) [facility]
[2021-01-19 20:21] LABS: BILIRUBIN,URINE NEGATIVE (NEG); CLARITY,URINE CLEAR; COLOR,URINE YELLOW; NITRITE,URINE NEGATIVE (NEG); PH,URINE 6.5 (<5.0-8.0); PROTEIN,URINE NEGATIVE (NEG-TRACE)
[2021-01-19 20:27] LABS: HYALINE CASTS, URINE FEW /HPF
[2021-01-19 20:28] LABS: BACTERIA,URINE 0 /HPF (0-FEW); WBC,URINE OCC /HPF (0-4)
[2021-01-19 21:00] VITALS: BP 177/83
== END 2021-01-19 21:38 | disposition home or self-care (01) ==
LOC: ER 17:48
DX: R10.30 Lower abdominal pain, unspecified (principal); R19.7 Diarrhea, unspecified; E11.9 Type 2 diabetes mellitus without complications; I10 Essential (primary) hypertension; Z86.73 Personal history of transient ischemic attack (TIA), and cerebral infarction without residual deficits; Z88.0 Allergy status to penicillin; Z88.8 Allergy status to other drugs, medicaments and biological substances
CPT/HCPCS: 36415; 74176; 80053; 81001; 83690; 85025; 99284-25